=== PATIENT | male | born 1985 | race Caucasian/White ===

== ENCOUNTER 2016-11-30 00:30 | Inpatient (IN) | payer MEDICAID ==
[2016-11-30] MEDS ORDERED: NITROGLYCERIN 0.4 MG BTL SL ONE ×2 (00:38→01:08)
[2016-11-30] MEDS ORDERED: NS 1,000 ML IV ONE (00:39)
[2016-11-30] MEDS ORDERED: ASPIRIN 81 MG CHEWABLE TAB PO ONE (00:39)
[2016-11-30 00:45] LABS: % IMMATURE GRANULYOCYTES 0.9 % (0.0-1.1); ABSOLUTE IMMATURE GRANULOCYTES 0.17 10^3/uL (0.00-0.10); ADD DIFF? NO; ADD MORPH? NO; ADD SCAN? NO; ATYPICAL LYMPHOCYTE FLAG 30 (0-99); FRAGMENT RBC FLAG 0 (0-99); HEMATOCRIT 51.4 % (40.0-51.0); HEMOGLOBIN 17.8 g/dL (13.7-17.5); LEFT SHIFT FLG 0 (0-99); LIPEMIA HEMOLYSIS FLAG 90 (0-99); MEAN CELL HEMOGLOBIN 31.7 pg (27.9-34.1); MEAN CELL HEMOGLOBIN CONCENTR. 34.6 g/dL (32.4-36.7); MEAN CELL VOLUME 91.6 fL (81.5-99.8); MEAN PLATELET VOLUME 10.1 fL (8.7-11.7); PLATELET CLUMPS FLAG 10 (0-99); PLATELET COUNT 337 10^3/uL (150-400); RED BLOOD CELL COUNT 5.61 10^6/uL (4.40-6.38); RED CELL DISTRIBUTION WIDTH 13.1 % (11.5-15.2)
--- NOTE | 2016-11-30 00:56 | EDPHY ---
H & P Stated Complaint: POST ARREST Time Seen by Provider: 11/30/16 00:46 HPI/ROS: Chief complaint: Cardiac arrest HPI: Patient contacted EMS complaining of chest pain earlier this evening. Patient states that he was in an argument with his earlier this evening and went for a walk. During the walked started having some substernal chest pain. On EMS arrival patient was awake and alert complaining of pain. They were able to get a full history on him. He then started complaining of some nausea. Vomited and had a syncopal episode. At that point they noted that he was pulseless and apneic. They began bag-valve ventilations and chest compressions. The place him on the monitor and noted that he was in ventricular fibrillation. He received 1 shock which converted him to sinus tachycardia. Patient on arrival to the emergency department was awake and following commands. Still complaining of 10/10 chest pain. Does state that mother father and have a history of coronary disease. He does smoke. Denies alcohol. Does use marijuana. Denies any other drug use. ROS: 10 point Review of Systems is negative except as noted in the HPI. Past medical history: None Medications: None Allergies: None Social history: Positive for smoking, positive for marijuana, denies cocaine, amphetamines, bath salts, or any other drugs Family history: Father, mother, and aunt have a history of coronary artery disease Physical exam: Gen: Awake, Alert, uncomfortable appearing, awake and oriented x3 HEENT: Eyes: PERRLA, EOMI Mouth: Moist mucosa Neck: Supple, no JVD Chest: Mild bilateral tenderness without crepitus, lungs clear to auscultation Heart: S1, S2 normal, no murmur Abd: Soft, non-tender, no guarding Back: no CVA tenderness, no midline tenderness Ext: no edema, non-tender Skin: no rash Neuro: CN II-XII intact, Sensation grossly intact, Strength 5/5 in bilateral upper and lower extremities - Personal History Current Tetanus/Diphtheria Vaccine: Yes Tetanus Vaccine Date: 11/06/2007 - Medical/Surgical History Hx Asthma: No Hx Chronic Respiratory Disease: No Hx Diabetes: No Hx Cardiac Disease: No Hx Renal Disease: No Hx Cirrhosis: No Hx Alcoholism: No Hx HIV/AIDS: No Hx Splenectomy or Spleen Trauma: No - Social History Smoking Status: Current every day smoker Constitutional: Initial Vital Signs Temperature (C) 36.9 C 11/30/16 00:41 Heart Rate 134 H 11/30/16 00:41 Respiratory Rate 24 H 11/30/16 00:41 Blood Pressure 96/79 L 11/30/16 00:41 O2 Sat (%) 100 11/30/16 00:41 O2 Delivery Mode Non-Rebreather Mask O2 (L/minute) 15 Allergies/Adverse Reactions: No Known Allergies Allergy (Unverified 06/04/12 19:28) Home Medications: Medication Instructions Recorded NK [No Known Home Meds] 11/30/16 Medical Decision Making - Diagnostics EKG Interpretation: EC:32 sinus tachycardia with a rate of 127. There are acute ST elevations in V1 through V4, greater than 7 mm with reciprocal changes in II, III and aVF consistent with acute anterior ST-elevation myocardial infarction Imaging: Chest x-ray: Negative per my interpretation. ED Course/Re-evaluation: 0032 ECG noted. Patient is having an ST-elevation myocardial infarction. Cardiac alert has been called. IV access obtained bilateral [address] Patient blood pressure is 90 systolic with a heart rate of 127. He has been given aspirin 325 orally. [address] Childers, interventional cardiology. He will come directly to the hospital for intervention. Patient's blood pressures improved to 127 systolic. He is given nitroglycerin 1 sublingually. Will also give him morphine. Doctor was not want any other interventions at this time. 0100 patient is still complaining of head and chest pain. He has got nitroglycerin and morphine. Will dose additional morphine. Heart rate now is 101, blood pressure is 101/94. Patient is awake and answering questions. Patient's has been notified and is on her way. 0112 Dr. Whitaker at the patient's bedside. Patient being package to go to molder labels. Critical Care Time: I spent a total of 40 minutes of critical care time in obtaining history, performing a physical exam, bedside monitoring of interventions, collecting and interpreting tests and discussion with consultants but not including time spent performing procedures. - Data Points Laboratory Results: Laboratory Results 11/30/16 00:36 11/30/16 00:36 11/30/16 11/30/16 11/30/16 00:36 00:36 00:33 WBC 18.88 10^3/uL H 10^3/uL (3.80-9.50) RBC 5.61 10^6/uL 10^6/uL (4.40-6.38) Hgb 17.8 g/dL H g/dL (13.7-17.5) POC Hgb 18.4 gm/dL H gm/dL (14.5-17.3) Hct 51.4 % H % (40.0-51.0) POC Hct 54 % H % (42.8-50.6) MCV 91.6 fL fL (81.5-99.8) MCH 31.7 pg pg (27.9-34.1) MCHC 34.6 g/dL g/dL (32.4-36.7) RDW 13.1 % % (11.5-15.2) Plt Count 337 10^3/uL 10^3/uL (150-400) MPV 10.1 fL fL (8.7-11.7) Neut % (Auto) 58.1 % % (39.3-74.2) Lymph % (Auto) 29.9 % % (15.0-45.0) [place] % (Auto) 8.4 % % (4.5-13.0) Eos % (Auto) 2.1 % % (0.6-7.6) Baso % (Auto) 0.6 % % (0.3-1.7) Nucleat RBC Rel Count 0.0 % % (0.0-0.2) Absolute Neuts (auto) 10.98 10^3/uL H 10^3/uL (1.70-6.50) Absolute Lymphs (auto) 5.65 10^3/uL H 10^3/uL (1.00-3.00) Absolute Monos (auto) 1.58 10^3/uL H 10^3/uL (0.30-0.80) Absolute Eos (auto) 0.39 10^3/uL 10^3/uL (0.03-0.40) Absolute Basos (auto) 0.11 10^3/uL H 10^3/uL (0.02-0.10) Absolute Nucleated RBC 0.00 10^3/uL 10^3/uL (0-0.01) Immature Gran % 0.9 % % (0.0-1.1) Immature Gran # 0.17 10^3/uL H 10^3/uL (0.00-0.10) POC Sodium 141 mEq/L mEq/L (134-144) Sodium 144 mEq/L mEq/L (134-144) POC Potassium 2.6 mEq/L L* mEq/L (3.3-5.0) Potassium 3.0 mEq/L L mEq/L (3.5-5.2) POC Chloride 104 mEq/L mEq/L (96-108) Chloride 105 mEq/L mEq/L (97-110) Carbon Dioxide 15 mEq/l L mEq/l (22-31) Anion Gap 24 mEq/L H mEq/L (8-16) POC BUN 9 mg/dL mg/dL (7-23) BUN 9 mg/dL mg/dL (7-23) Creatinine 1.2 mg/dL mg/dL (0.7-1.3) POC Creatinine 1.2 mg/dL mg/dL (0.8-1.5) Estimated GFR > 60 Glucose 177 mg/dL H mg/dL (70-100) POC Glucose 174 mg/dL H mg/dL (70-100) Calcium 9.9 mg/dL mg/dL (8.5-10.4) Troponin I < 0.012 ng/mL ng/mL (0-0.034) Medications Given: Discontinued Medications Aspirin (Aspirin) 324 mg PO EDNOW ONE Stop: 11/30/16 00:40 Last Admin: 11/30/16 01:03 Dose: 324 mg Sodium Chloride (Ns) 1,000 mls @ 0 mls/hr IV ONCE ONE PRN Reason: Wide Open Stop: 11/30/16 00:40 Last Admin: 11/30/16 01:04 Dose: 1,000 mls Morphine Sulfate (Morphine) 4 mg IVP EDNOW ONE Stop: 11/30/16 00:40 Last Admin: 11/30/16 01:04 Dose: 4 mg Morphine Sulfate (Morphine) 4 mg IVP EDNOW ONE Stop: 11/30/16 01:15 Last Admin: 11/30/16 01:15 Dose: 4 mg Nitroglycerin (Nitrostat) 0.4 mg SL EDNOW ONE Stop: 11/30/16 01:09 Last Admin: 11/30/16 01:04 Dose: 0.4 mg Point of Care Test Results: 11/30/16 00:33 POC Sodium 141 POC Potassium 2.6 L* POC Chloride 104 POC BUN 9 POC Creatinine 1.2 POC Glucose 174 H Departure - Departure Disposition: [facility] Inpatient Acute Clinical Impression: STEMI (ST elevation myocardial infarction) Condition: Serious Referrals: Patient,NotPresent [Primary Care Provider] - As per Instructions
[2016-11-30 00:57] LABS: ANION GAP 24 mEq/L (8-16); CALCIUM 9.9 mg/dL (8.5-10.4); CARBON DIOXIDE 15 mEq/l (22-31); CHLORIDE 105 mEq/L (97-110); CREATININE 1.2 mg/dL (0.7-1.3); GLOMERULAR FILTRATION RATE > 60; GLUCOSE 177 mg/dL (70-100); SODIUM 144 mEq/L (134-144)
[2016-11-30] MEDS ORDERED: POTASSIUM Cl (KCl) 10 MEQ/100 ML BAG IV ONE (00:57)
[2016-11-30] MEDS ORDERED: LIDOCAINE 1% 30 ML SDV ONE ×3 (01:01→15:16)
[2016-11-30] MEDS ORDERED: MIDAZOLAM 2 MG/2 ML VIAL ONE ×5 (01:02→16:02)
[2016-11-30] MEDS ORDERED: fentaNYL 100 MCG/2 ML INJ ONE ×5 (01:02→16:02)
--- NOTE | 2016-11-30 01:02 | CPEKG ---
Heart Rate: 127 RR Interval: 472 P-R Interval: 152 QRSD Interval: 78 QT Interval: 304 QTC Interval: 442 P [place]: 80 QRS [place]: -55 T Wave [place]: 32 EKG Severity - ABNORMAL ECG - EKG Impression: SINUS TACHYCARDIA EKG Impression: LEFT ANTERIOR FASCICULAR BLOCK EKG Impression: ST ELEVATION, ANTERIOR INJURY Electronically Signed By: Cl Orta 30-Nov-2016 08:52:01
[2016-11-30 01:10] LABS: TROPONIN I < 0.012 ng/mL (0-0.034)
[2016-11-30] MEDS ORDERED: POTASSIUM Cl (KCl) 100 ML IV ONE (01:25)
[2016-11-30] MEDS ORDERED: METOPROLOL TARTRATE 5 MG/5 ML INJ ONE (01:30)
[2016-11-30] MEDS ORDERED: BIVALIRUDIN 250 MG/5 ML VIAL IV ONE ×3 (01:33→17:13)
[2016-11-30] MEDS ORDERED: IOPAMIDOL (ISOVUE 370) 100 ML BTL IV ONE ×3 (01:45→15:00)
[2016-11-30] MEDS ORDERED: PRASUGREL HCL 10 MG TAB ONE (02:06)
[2016-11-30] MEDS ORDERED: NITROGLYCERIN 0.4 MG BTL SL PRN (02:22)
[2016-11-30] MEDS ORDERED: TEMAZEPAM 15 MG CAP PO PRN (02:22)
[2016-11-30] MEDS ORDERED: PRASUGREL HCL 10 MG TAB PO ONE (02:22)
[2016-11-30] MEDS ORDERED: HYDROCODONE/APAP 5/325 TAB PO PRN (02:22)
[2016-11-30] MEDS ORDERED: ATROPINE SULFATE 1 MG/10 ML SYR IVP PRN (02:22)
[2016-11-30] MEDS ORDERED: ACETAMINOPHEN 325 MG TAB PO PRN (02:22)
[2016-11-30] MEDS ORDERED: NS 1,000 ML IV SCH (02:30)
[2016-11-30] MEDS ORDERED: PROTOCOL POTASSIUM 1 DOSE MISC PRN (02:36)
[2016-11-30] MEDS ORDERED: PROTOCOL MAGNESIUM 1 DOSE IV PRN (02:36)
[2016-11-30] MEDS ORDERED: ONDANSETRON 4 MG/2 ML VIAL ONE (02:37)
[2016-11-30] MEDS: ONDANSETRON 4 MG/2 ML VIAL IVP PRN ×2 (02:40→06:18)
--- NOTE | 2016-11-30 02:42 | PDDXCAT ---
Diagnostic Cath Note - . Date: 11/30/16 Research Group Director: Alvarado Indication: other (Anterior STEMI with [id number] cardiac arrest) - Procedure Access: right groin Procedure: left heart catheterization, coronary angiography, left ventriculogram , other (PCI of the LAD) - Materials Left Heart Cath size: 6F Left Heart Cath materials: standard multipack (JL4, JR4, pigtail) - Findings-Left Heart Catheterization LM: Normal. LAD: 100% proximal. LCX: Minimal irregularities. RCA: Minimal irregularities. EDP: 38 mmHg LVEF: 30% Wall motion: Severe anterior and apical hypokinesis. Complications: None. Estimated blood loss: <50ml Closure method: Angioseal Assessment: 1) Acute anterior STEMI. 2) CAD as described above. 3) Successful PCI of the LAD using a single drug coated stent. 4) Ischemic cardiomyopathy. Plan: Aggressive secondary prevention Intervention: Based on the patient's clinical presentation and diagnostic angiograms, the decision was made to perform percutaneous coronary intervention of the left anterior descending. The patient received intravenous Angiomax. A 6 Lao CLS 3.5 guide catheter was advanced to the left main. A [employer] guidewire was advanced to the apical portion of the left anterior descending. Predilatation of the total occlusion in the proximal LAD was performed using a 2.5 x 12 mm Emerge balloon. Angiography at this point demonstrated roman catholic of LEXII-III flow and revealed the presence of a high grade stenosis of the proximal LAD with a segment of disease in the mid-LAD up to 60-70%. Attempts were then made to track a 3.0 x 38 mm Synergy stent into position. However, there was significant resistance in the proximal LAD. Additional predilatation inflations were performed using the original balloon. The Synergy stent was then advanced and positioned spanning from the proximal LAD into the mid LAD. The stent was deployed at 14 atmospheres. Final angiograms demonstrated 0% residual stenosis and LEXII-III flow. There was no compromise of the principle diagonal branch. Patient Problems: Problems Problem Status Onset STEMI (ST elevation myocardial infarction) Acute Abscess of axilla Active Fever Active Obesity Active Renal failure syndrome Active
--- NOTE | 2016-11-30 02:48 | CPEKG ---
Heart Rate: 90 RR Interval: 667 P-R Interval: 136 QRSD Interval: 82 QT Interval: 356 QTC Interval: 436 P [place]: 65 QRS [place]: 66 T Wave [place]: -9 EKG Severity - ABNORMAL ECG - EKG Impression: SINUS RHYTHM EKG Impression: ANTERIOR INFARCT, ACUTE EKG Impression: LATERAL LEADS ARE ALSO INVOLVED Electronically Signed By: Cl Orta 30-Nov-2016 08:40:19
[2016-11-30] MEDS: LORazepam 2 MG/ML INJ IVP PRN ×3 (02:55→20:30)
[2016-11-30] MEDS ORDERED: NITROGLYCERIN/D5W 50 MG/250 ML BOTTLE IV ONE (03:06)
--- NOTE | 2016-11-30 03:22 | GHP ---
[f rep st] HISTORY AND PHYSICAL DATE OF ADMISSION: 11/30/2016 REASON FOR ADMISSION: Acute anterior ST-segment elevation myocardial infarction. HISTORY: The patient is a 31-year-old male with no prior cardiac history. He is a somewhat poor hi storian in the emergency room due to pain and anxiety. He reports that he has been having chest dis comfort off and on for the past couple of weeks. Tonight it became severe. Paramedics were summone d and shortly after their arrival, the patient was on the diagnostic cardiac sonographer, he had a witnessed ventri cular fibrillation arrest. He received CPR and a single defibrillation, which restored sinus rhythm . The patient arrives hemodynamically stable and conscious to the emergency room. His 12-lead ECG demonstrated anterior ST-segment elevation consistent with acute myocardial injury. A cardiac alert was called. PAST MEDICAL HISTORY: He has a history of recurrent abscesses on his arms and legs. He reports a p rior spontaneous pneumothorax. He does not have hypertension or diabetes. He does not know his lip id status. MEDICATIONS: Tylenol p.r.n. ALLERGIES: No known drug allergies. SOCIAL HISTORY: He is . He has 2 children and 2 stepchildren. He is currently unemployed. He smokes 1/2 to 1 pack of cigarettes per day. Alcohol consumption is not excessive. He does not use any illicit substances. REVIEW OF SYSTEMS: Unobtainable due to the patient's acute medical condition. PHYSICAL EXAMINATION: VITAL SIGNS: Heart rate 105 beats per minute with sinus tachycardia on the m onitor. Blood pressure 117/80. GENERAL: This is an anxious young male, who is alert and responsiv e. HEAD AND NECK: No scleral icterus. Mucous membranes moist. Carotid pulses 2+ without bruits. There is no JVD. CHEST: Lung pérez clear anteriorly. CARDIAC: Tachycardic, regular rhythm with a normal S1, S2. No gallop appreciated. ABDOMEN: Soft, nontender, nondistended without masses. Normal bowel sounds. EXTREMITIES: 2+ pulses and no peripheral edema. LABORATORY STUDIES: Pending. ECG: Demonstrates sinus tachycardia with 2-[address]-segment elevation, and inferolateral reciprocal changes. IMPRESSION: This is a 31-year-old male, who presents with an acute anterior ST-segment elevation my ocardial infarction. His presentation was complicated by a witnessed cardiac arrest, which was brie f and quickly resuscitated back to sinus rhythm. PLAN: Preparations are underway to take the patient urgently to the cardiac labeling associate for angiograph y and percutaneous coronary intervention of the infarct-related artery. Further diagnostic and ther apeutic decisions await the outcome of that procedure. /[id number]/MODL
[2016-11-30 03:42] LABS: ANION GAP 12 mEq/L (8-16); CALCIUM 8.1 mg/dL (8.5-10.4); CARBON DIOXIDE 22 mEq/l (22-31); CHLORIDE 106 mEq/L (97-110); GLOMERULAR FILTRATION RATE > 60; GLUCOSE 131 mg/dL (70-100); MAGNESIUM 1.8 mg/dL (1.6-2.3); POTASSIUM 3.4 mEq/L (3.5-5.2); SODIUM 140 mEq/L (134-144)
[2016-11-30] MEDS ORDERED: MAGNESIUM SULF 1 GM/DEXTROSE 100 ML IV ONE ×2 (03:50→21:48)
[2016-11-30] MEDS: POTASSIUM Cl (KCl) 100 ML IV SCH ×3 (04:12→04:14)
[2016-11-30] MEDS ORDERED: *ANGINA PROTOCOL*NITROGLYCERIN/DEXTR IV SCH (04:30)
[2016-11-30 05:48] LABS: ADD DIFF? YES; ADD MORPH? NO; ADD SCAN? NO; ATYPICAL LYMPHOCYTE FLAG 0 (0-99); FRAGMENT RBC FLAG 0 (0-99); HEMOGLOBIN 15.3 g/dL (13.7-17.5); LEFT SHIFT FLG 30 (0-99); LIPEMIA HEMOLYSIS FLAG 90 (0-99); MEAN CELL HEMOGLOBIN 31.8 pg (27.9-34.1); MEAN CELL HEMOGLOBIN CONCENTR. 34.8 g/dL (32.4-36.7); MEAN CELL VOLUME 91.5 fL (81.5-99.8); MEAN PLATELET VOLUME 10.2 fL (8.7-11.7); PLATELET CLUMPS FLAG 10 (0-99); PLATELET COUNT 315 10^3/uL (150-400); RED BLOOD CELL COUNT 4.81 10^6/uL (4.40-6.38); RED CELL DISTRIBUTION WIDTH 13.2 % (11.5-15.2)
[2016-11-30 06:08] LABS: ALBUMIN 3.7 g/dL (3.5-5.0); ANION GAP 8 mEq/L (8-16); ASPARTATE AMINOTRANSFERASE 147 IU/L (17-59); BILIRUBIN,TOTAL 1.1 mg/dL (0.1-1.4); CALCIUM 8.4 mg/dL (8.5-10.4); CARBON DIOXIDE 23 mEq/l (22-31); CHLORIDE 108 mEq/L (97-110); CHOLESTEROL 154 mg/dL (140-200); CREATININE 0.9 mg/dL (0.7-1.3); GLOMERULAR FILTRATION RATE > 60; GLUCOSE 154 mg/dL (70-100); HIGH DENSITY LIPOPROTEIN 27 mg/dL (40-65); LACTATE DEHYDROGENASE 875 IU/L (313-618); LDL/HDL RATIO 3.81 RATIO (1.00-3.64); LOW DENSITY LIPOPROTEIN 103 mg/dL (70-100); MAGNESIUM 2.4 mg/dL (1.6-2.3); NON-HIGH DENSITY LIPOPROTEIN 127 mg/dL (90-129); POTASSIUM 4.4 mEq/L (3.5-5.2); SODIUM 139 mEq/L (134-144); TRIGLYCERIDE 123 mg/dL (40-150); VERY LOW DENSITY LIPOPROTEINS 24 mg/dL (8-25)
[2016-11-30 06:50] LABS: PLATELET ESTIMATE ADEQUATE (ADEQ)
[2016-11-30] MEDS ORDERED: CARVEDILOL 3.125 MG TAB PO SCH (08:00)
--- NOTE | 2016-11-30 08:45 | CPEKG ---
Heart Rate: 90 RR Interval: 667 P-R Interval: 132 QRSD Interval: 72 QT Interval: 344 QTC Interval: 421 P [place]: 62 QRS [place]: 78 T Wave [place]: 63 EKG Severity - ABNORMAL ECG - EKG Impression: SINUS RHYTHM EKG Impression: LATERAL INFARCT, AGE INDETERMINATE EKG Impression: ANTERIOR INFARCT, ACUTE Electronically Signed By: Cl Orta 30-Nov-2016 08:52:07
[2016-11-30] MEDS ORDERED: ASPIRIN EC 325 MG TAB PO SCH (09:00)
[2016-11-30] MEDS ORDERED: LISINOPRIL 2.5 MG TAB PO SCH (09:00)
[2016-11-30] MEDS ORDERED: ATORVASTATIN CALCIUM 40 MG TAB PO SCH (09:00)
[2016-11-30 09:06] LABS: CK-MB INTERPRETATION POSITIVE (NEGATIVE)
--- NOTE | 2016-11-30 13:03 | GCON ---
[f rep st] CONSULTATION CLUB MANAGER CONSULTATION REASON FOR ADMISSION: Chest pain, coronary artery disease, acute IL. HISTORY OF PRESENT ILLNESS: The patient is a 31-year-old white male with past medical history of a prior spontaneous pneumothorax. He presented to the emergency room after complaining for chest pain on and off for several weeks. This had worsened in severity. EMS was notified. At the time, he w as found to be suffering a ventricular fibrillation arrest. He received CPR and a single defibrilla tion and was brought back to sinus rhythm. He was brought to the emergency room and subsequently we nt to the cardiac catheterization lab. At that time, he was found to have 100% proximal LAD lesion, and he underwent successful stenting. He was also found to have some evidence of ischemic cardiomy opathy. He was subsequently admitted to the intensive care unit. Currently, patient is resting com fortably. He complains of some chest pain when awake, has no fever or night sweats. No cough or pr oductive sputum. No nausea, vomiting, or diarrhea. PAST MEDICAL HISTORY: Again, significant for history of a spontaneous pneumothorax. ALLERGIES: None known allergies to medications. SOCIAL HISTORY: He is . Has 2 children. He is unemployed. He smokes a pack of cigarettes a day. Denies any use of any illicit substances. PHYSICAL EXAM: VITAL SIGNS: Blood pressure is 117/77, pulse 94, respirations 20. He is afebrile. Oxygen saturation 94% on 2 L. GENERAL: He is a well-developed, well-nourished 31-year-old white m dilia who is resting comfortably, in no acute distress. HEENT: Eyes: ROSS. EOMI. Throat shows no erythema or tonsillar hypertrophy. NECK: Supple. No cervical adenopathy. HEART: Regular rate an d rhythm without murmurs, rubs, or gallops. LUNGS: Clear to auscultation. No wheeze or rhonchi. ABDOMEN: Soft, nontender. Bowel sounds are present in all 4 quadrants. EXTREMITIES: No clubbing, cyanosis, or edema. LABORATORIES: White count is 25.8, hemoglobin of 15, hematocrit 44, platelet count is 315. Sodium is 140, potassium 3.4, chloride 106, CO2 is 22, BUN 9, creatinine is 1, glucose is 131, CK is positi ve. Troponins are positive. Urine drug screen is none. Negative for opiates, benzodiazepines, rachele liam and marijuana. IMPRESSION: 1. Acute myocardial infarction. 2. Status post ventricular fibrillation arrest. 3. Coronary artery disease, status post stenting of the LAD. 4. Polysubstance abuse. RECOMMENDATIONS: 1. Adequate pain control. 2. Adequate blood pressure control. 3. Deep vein thrombosis and pulmonary embolism prophylaxis. 4. Stress ulcer prophylaxis. 5. Early ambulation. /[id number]/MODL
--- NOTE | 2016-11-30 14:07 | ECHO ---
[id number] + + [address] : : [place] [address] : : [phone] + + Adult Echocardiographic Report + + :Name: ANGELA SCHROEDER SStudy Date: 11/30/2016 08:03 AM : : Hospital Admission Number: [id number] Loc ation: 256: :: 1985 Gender: Male Height: 67 in : :Age: 31 yrs Race: WH,PTD Weight: 157 lb : :Reason For Study: Eval LV Fx : : BSA: 1.8 me ters2 : :History: Acute Anterior AL : + + MMode/2D Measurements \T\ Calculations IVSd: 0.90 cm LVIDd: 3.9 cm FS: 18.4 % Ao root diam: LVPWd: 0.98 cm LVIDs: 3.2 cm EDV(Teich): 3.1 cm 67.7 ml ACS: 1.9 cm ESV(Teich): 41.6 ml EF(Teich): 38.6 % LVLd ap4: 7.8 cm SV(MOD-sp4): EDV(MOD-sp4): 20.0 ml 63.0 ml LVLs ap4: 7.1 cm ESV(MOD-sp4): 43.0 ml EF(MOD-sp4): 31.7 % Normal Measurement Values: + + :LVIDd (3.5-5.7cm) IVSd (0.6-1.1cm) LVPWd (0.6-1.1cm) Aortic Root (2.0-3.7cm)Left Atrium (1.5-4.0cm): :LV Vol(d) (76-115ml) LV Vol(s) (29-48ml) Ejec Fraction (50-65%)PV Bimal (0.6- 1.2m/s) TV Bimal (0.4-1.0m/s) : :MV E Bimal (0.8-1.0m/s)MV A Bimal (0.3-1.0m/s)LVOT Bimal (0.7-1.2m/s) Asc Ao Bimal ( 0.9-1.8m/s) : + + Doppler Measurements \T\ Calculations MV E max bimal: Ao V2 max: LV V1 max: PA V2 max: 88.8 cm/sec 86.9 cm/sec 82.4 cm/sec 106.0 cm/sec MV A max bimal: Ao max PG: LV V1 max PG: PA max P.5 mmHg 79.0 cm/sec 3.0 mmHg 2.7 mmHg MV E/A: 1.1 TR max bimal: 269.0 cm/sec TR max P.9 mmHg RAP systole: 5.0 mmHg RVSP(TR): 33.9 mmHg Left Ventricle The left ventricle is normal in size. There is normal left ventricular wall thickness. Ejection Fraction = 35%. There is Doppler evidence for diastolic dysfunction. There is basilar to mid anteroseptal hypokinesis. There is apical hypokinesis. Right Ventricle The right ventricle is normal in size and function. Atria The left atrial size is normal. Right atrial size is normal. Mitral Valve The mitral valve is normal in structure and function. There is no evidence of mitral valve prolapse. There is no mitral valve stenosis. There is no mitral regurgitation noted. Tricuspid Valve The tricuspid valve is normal in structure and function. There is trace tricuspid regurgitation. Right ventricular systolic pressure is normal. Aortic Valve The aortic valve is normal in structure and function. There is no aortic stenosis. There is no aortic insufficiency. Pulmonic Valve The pulmonic valve is normal in structure and function. There is no pulmonic valvular regurgitation. Great Vessels The aortic root is normal size. Pericardium/Pleural There is no pericardial effusion. Conclusion A complete two-dimensional transthoracic echocardiogram was performed (2D, M-mode, Doppler and color flow Doppler). There is Doppler evidence for diastolic dysfunction. There is basilar to mid anteroseptal hypokinesis. There is apical hypokinesis. The right ventricle is normal in size and function. The left atrial size is normal. Right atrial size is normal. The mitral valve is normal in structure and function. The tricuspid valve is normal in structure and function. There is trace tricuspid regurgitation. Right ventricular systolic pressure is normal. The aortic valve is normal in structure and function. The pulmonic valve is normal in structure and function. The aortic root is normal size. There is no pericardial effusion. Ejection Fraction = 35%. Final Reading Physician: Bre Chery signed on 11/30/2016 02:02 PM Ordering Physician: Ant Childers Performed By: Tang Mills RDCS
--- NOTE | 2016-11-30 16:14 | CPEKG ---
Heart Rate: 100 RR Interval: 600 P-R Interval: 140 QRSD Interval: 72 QT Interval: 320 QTC Interval: 413 P [place]: 62 QRS [place]: 92 T Wave [place]: 34 EKG Severity - ABNORMAL ECG - EKG Impression: SINUS TACHYCARDIA EKG Impression: VENTRICULAR PREMATURE COMPLEX EKG Impression: EXTENSIVE ANTERIOR INFARCT, ACUTE Electronically Signed By: Baljeet Wolf 30-Nov-2016 16:22:06
[2016-11-30] MEDS ORDERED: EPTIFIBATIDE 200 MG/100 ML BOTTLE IV ONE (16:17)
--- NOTE | 2016-11-30 16:42 | ECHO ---
[id number] + + [address] : : [place] [address] : : [phone] + + Adult Echocardiographic Report + + :Name: ANGELA SCHROEDER SStudy Date: 11/30/2016 02:31 PM : : Hospital Admission Number: [id number] Loc ation: 256: :: 1985 Gender: Male : :Age: 31 yrs Race: WH,PTD : :Reason For Study: Chest Pain : + + Left Ventricle EF estimate is 30%. LV basal/mid septal wall and entire apical region is akinetic. Conclusion Limited 2-D echo. Compared to the study of earlier today, the wall motion abnormalities remains unchanged.. LV basal/mid septal wall and entire apical region is akinetic. EF estimate is 30%. Final Reading Physician: Bre Chery signed on 11/30/2016 04:40 PM Ordering Physician: Ant Childers Performed By: Padmini Bridges RDCS
[2016-11-30] MEDS ORDERED: IOPAMIDOL (ISOVUE-300) 150 ML BTL IV ONE (16:57)
[2016-11-30] MEDS ORDERED: FUROSEMIDE 20 MG/2 ML VIAL ONE (17:18)
[2016-11-30] MEDS ORDERED: SUCCINYLCHOLINE CHLORIDE 200 MG/10 ML VIAL ONE (17:34)
[2016-11-30] MEDS ORDERED: ROCURONIUM 50 MG/5 ML VIAL ONE ×2 (17:36→18:17)
[2016-11-30] MEDS ORDERED: DOPamine/DEXTROSE/250 ML BAG IV ONE (17:41)
[2016-11-30] MEDS ORDERED: fentanYL/NACL/100 ML BAG IV ONE (18:41)
[2016-11-30] MEDS ORDERED: PROPOFOL/EMULSION 1,000 MG/100 ML BOTTLE IV ONE (18:50)
--- NOTE | 2016-11-30 18:51 | CPEKG ---
Heart Rate: 153 RR Interval: 392 P-R Interval: 128 QRSD Interval: 70 QT Interval: 264 QTC Interval: 422 P [place]: 72 QRS [place]: 107 T Wave [place]: 44 EKG Severity - ABNORMAL ECG - EKG Impression: SINUS TACHYCARDIA EKG Impression: EXTENSIVE ANTERIOR INFARCT, ACUTE Electronically Signed By: Baljeet Wolf 30-Nov-2016 19:53:32
[2016-11-30] MEDS: PROPOFOL/EMULSION 100 ML IV SCH ×2 (19:00→22:49)
[2016-11-30] MEDS: NOREPINEPHRINE BITARTRATE 4 MG in D5W 500 ML IV SCH ×2 (19:00→21:44)
[2016-11-30] MEDS: fentaNYL/NACL 100 ML IV SCH ×2 (19:00→22:50)
[2016-11-30] MEDS ORDERED: HEPARIN 10,000 UNIT/10 ML MDV IVP PRN (19:34)
[2016-11-30] MEDS ORDERED: HEPARIN 10,000 UNIT/10 ML MDV IVP ONE (19:34)
--- NOTE | 2016-11-30 20:09 | CPIP ---
[f rep st] INVASIVE CARDIAC PROCEDURE DATE OF PROCEDURE: 11/30/2016 PROCEDURE: 1. Coronary angiography. 2. Left ventricular end-diastolic pressure. 3. Stenting of left anterior descending coronary artery with Synergy drug-eluting stent. 4. Intravascular ultrasound of the left anterior descending coronary artery. 5. Thrombectomy of the left anterior descending coronary artery. 6. Placement of intraaortic balloon pump. INDICATION: Patient is a 31-year-old gentleman who presented with an acute anterior ST-segment elev ation myocardial infarction. He was treated with percutaneous coronary intervention of his left ant erior descending coronary artery. Initially postprocedure patient did well; however, he developed r ecurrent chest pain that was 8/10 in severity. EKG demonstrated anterior ST-segment elevation consi stent with anterior IA; however, it was unclear if these were evolutionary changes from his previous IA versus active ischemia. The patient was taken to the cardiac catheterization laboratory for furt her risk stratification. DESCRIPTION OF PROCEDURE: Access: Patient was prepped and draped in sterile fashion. 1% lidocaine was used to anesthetize the left inguinal region. A 6-[place] introducer sheath was placed selectiv mary into the left common femoral artery via modified Seldinger technique. Later a 5-[place] introduc er sheath was placed selectively into the right common femoral artery via modified Seldinger techniq ue for hemodynamic monitoring. In addition, a 6-[place] introducer sheath was placed in the right co mmon femoral vein for intravenous access. For coronary angiography, a 6-[place] JL4 was advanced to left main coronary artery and images obtained. The left main coronary artery bifurcated into an LAD and circumflex coronary arteries. The left main coronary artery appeared normal. The left anterio r descending coronary artery was 100% occluded at the site of the previously placed stent. The circ umflex coronary artery appeared normal. The 1st OM artery had mild diffuse disease throughout. The re was no stenosis greater than 20%. Percutaneous coronary intervention of the left anterior descending coronary artery: A 6-[place]izen [place] EBU 3.5 catheter was advanced to left main coronary artery and images obtained. Angiography confirmed t he presence of 100% occlusion at the site of previously placed stent. Several attempts were made at passing a loose wire into the distal vessel; these were unsuccessful. Ultimately a Typewriter Ribbon Winder 50 wire w as placed in the distal vessel and position verified by angiography. A 1.25 x 10 Sprinter was then advanced over the wire via daughter technique. Followup angiography demonstrated LEXII 0 flow. Sever al balloon inflations were made with the 125 x 10 Sprinter. LEXII flow improved from 0 to 1. A Pront o catheter was then advanced and thrombectomy performed on 2 separate occasions. Post thrombectomy, significant thrombus burden could be seen at the site of the previously placed stent. There was TI IA 2.5 flow in the distal vessel. A 2.5 x 20 Emerge balloon was then used to pre-dilate the lesions . Followup angiography demonstrated LEXII 3 flow. There was significant residual thrombus burden in the distal portion of the stent and there was concern for potential edge dissection. A 2.75 x 24 Sy nergy drug-eluting stent was telescoped into the previously placed stent and extended distally and w as deployed. Followup angiography demonstrated LEXII 3 flow. No residual stenosis. Intravascular u ltrasound probe was advanced and images obtained. Intravascular ultrasound demonstrated incomplete stent expansion, as well as heavy thrombus burden. The distal stents were post dilated with a 3.0 x 20 noncompliant balloon. The proximal stent was post dilated to 3.5 x 16 noncompliant balloon. Fol lowup angiography demonstrated LEXII 3 flow; however, there appeared to be a thrombus versus tissue p laque in the ostial portion of the previously placed stent. Intravascular ultrasound probe was adva nced and images obtained. Intravascular ultrasound demonstrated evidence of thrombus versus tissue extending through the stent struts into the lumen. A 3.5 x 16 Synergy drug-eluting stent was then p laced in the proximal portion of the left anterior descending coronary artery and deployed. Followu p angiography demonstrated no residual stenosis and LEXII 3 flow. Left ventricular end-diastolic pressure: A 6-[place] pigtail catheter was advanced in the left ventr icle and left ventricular end-diastolic pressure was obtained. The left ventricular end-diastolic pr essure was elevated at 40 mmHg. The patient's SaO2 was approximately 90% and would dip into the 80s with sedation. It was decided to place an intraaortic balloon pump for hemodynamic support. Intra aortic balloon pump was placed via the left femoral access site. COMPLICATIONS: None. CONCLUSIONS: 1. Single-vessel coronary artery disease representing subacute stent thrombosis of the left anterio r descending coronary artery. 2. Status post successful percutaneous coronary intervention of the left anterior descending liu ry artery using a Synergy drug-eluting stents. 3. Status post placement of intraaortic balloon pump. /[id number]/MODL
[2016-11-30 20:28] LABS: BASE EXCESS -6.5 mEq/L (-2.5-2.5); BICARBONATE 20 mEq/L (22-26); IONIZED CALCIUM 1.15 MMOL/L (1.12-1.30); MEASURED OXYGEN SATURATION 97 % (92-95); PCO2 43 mmHg (34-38); PO2 100 mmHg (65-75); TCO2 21 mEq/L (23-27)
[2016-11-30 20:29] LABS: % IMMATURE GRANULYOCYTES 0.8 % (0.0-1.1); ABSOLUTE IMMATURE GRANULOCYTES 0.22 10^3/uL (0.00-0.10); ADD DIFF? NO; ADD MORPH? NO; ADD SCAN? NO; ATYPICAL LYMPHOCYTE FLAG 10 (0-99); FRAGMENT RBC FLAG 0 (0-99); HEMATOCRIT 46.3 % (40.0-51.0); LEFT SHIFT FLG 10 (0-99); LIPEMIA HEMOLYSIS FLAG 90 (0-99); MEAN CELL HEMOGLOBIN 31.6 pg (27.9-34.1); MEAN CELL HEMOGLOBIN CONCENTR. 34.6 g/dL (32.4-36.7); MEAN CELL VOLUME 91.3 fL (81.5-99.8); MEAN PLATELET VOLUME 10.3 fL (8.7-11.7); PLATELET CLUMPS FLAG 10 (0-99); PLATELET COUNT 348 10^3/uL (150-400); RED BLOOD CELL COUNT 5.07 10^6/uL (4.40-6.38); RED CELL DISTRIBUTION WIDTH 13.5 % (11.5-15.2)
[2016-11-30 20:31] LABS: SIMV YES
[2016-11-30 20:32] LABS: O2 CONCENTRATIION 100 % (0-100); P/F RATIO 100 RATIO; PATIENT RATE 16; PRESSURE SUPPORT 10
[2016-11-30] MEDS: HEPARIN/DEXTROSE 500 ML IV SCH (20:48)
[2016-11-30 20:49] LABS: INR 1.91 (0.83-1.16)
[2016-11-30 20:51] LABS: APTT 71.3 SEC (23.0-38.0)
[2016-11-30 20:56] LABS: ALBUMIN 3.3 g/dL (3.5-5.0); ANION GAP 6 mEq/L (8-16); CARBON DIOXIDE 22 mEq/l (22-31); CHLORIDE 107 mEq/L (97-110); CREATININE 0.9 mg/dL (0.7-1.3); GLOMERULAR FILTRATION RATE > 60; GLUCOSE 154 mg/dL (70-100); MAGNESIUM 1.7 mg/dL (1.6-2.3); SODIUM 135 mEq/L (134-144)
[2016-11-30] MEDS ORDERED: PROTOCOL CALCIUM 1 DOSE IV PRN (21:04)
[2016-11-30] MEDS ORDERED: PROTOCOL K PHOSPHATE 1 DOSE IV PRN (21:04)
--- NOTE | 2016-11-30 21:04 | SOAPPROG ---
FATUMA Progress Note Assessment/Plan: 1. AMI - Pt presented with an acute anterior STEMI in the setting of cocaine use. He was treated with PCI of his LAD. CPK 1482. LVEF = 35%. Pt has developed recurrent chest pain post PCI. EKG demonstrates Anterior STEMI ? evolving vs recurrent ischemia. Discussed risks and benefits of cardiac catheterization with patient and family to further evaluate his condition. Will arrange to have this performed. --> Cardiac catheterization --> Continue asa, effient, and lipitor --> No BB given cocaine use 2. CM - Pt has an ICM with an EF of 35%. --> Add coreg and lisinopril as appropriate --> Consider longterm anticoagulation given anterior OR 3. Hyperlipidemia - Pts LDL is 103. His goal is less than 70. --> Lipitor 40 mg daily 4. Polysubstance use 5. V- fib arrest - Pt with V-fib arrest in setting of STEMI. He is s/p revascularization. --> Continue to follow up telemetry Subjective: Pt reports recurrent chest pain 8 to 9 out of ten No orthopnea or PND limited ambulation Objective: Vital Signs Temp Pulse Resp BP Pulse Ox 36.8 C 156 H 12 118/83 H 94 11/30/16 12:00 11/30/16 18:29 11/30/16 18:29 11/30/16 15:00 11/30/16 18:29 Laboratory Results 11/30/16 20:05 11/29/16 11/30/16 12/01/16 05:59 05:59 05:59 Intake Total 2855 50 Output Total 0 1350 Balance 2855 -1300 PT 22.0 SEC (12.0-15.0) H 11/30/16 20:05 INR 1.91 (0.83-1.16) H 11/30/16 20:05 Physical Exam - Physical Exam General Appearance: moderate distress Respiratory: crackles Cardiac/Chest: tachycardia Abdomen: non-tender, soft Extremities: No pedal edema ICD10 Worksheet Patient Problems: Problems Problem Status Onset STEMI (ST elevation myocardial infarction) Acute Abscess of axilla Active Fever Active Obesity Active Renal failure syndrome Active
[2016-11-30 21:46] LABS: CK-MB INTERPRETATION POSITIVE (NEGATIVE)
[2016-11-30] MEDS ORDERED: NEOSTIGMINE METHYLSULFATE 10 MG/10 ML MDV ONE ×2 (22:00→22:02)
[2016-11-30] MEDS ORDERED: PROPOFOL 200 MG/20 ML VIAL ONE (22:02)
[2016-12-01 00:41] LABS: CALCULATED OXYGEN SATURATION 95 % (92-95)
[2016-12-01] MEDS: NOREPINEPHRINE BITARTRATE 4 MG in D5W 500 ML IV SCH ×2 (01:47→06:26)
[2016-12-01 01:49] LABS: CK-MB INTERPRETATION POSITIVE (NEGATIVE)
[2016-12-01] MEDS: LORazepam 2 MG/ML INJ IVP PRN ×2 (02:13→04:38)
[2016-12-01 03:09] LABS: BASE EXCESS -1.3 mEq/L (-2.5-2.5); BICARBONATE 22 mEq/L (22-26); MEASURED OXYGEN SATURATION 99 % (92-95); PCO2 36 mmHg (34-38); PO2 118 mmHg (65-75); TCO2 24 mEq/L (23-27)
[2016-12-01 03:10] LABS: O2 CONCENTRATIION 50 % (0-100); P/F RATIO 236 RATIO; SIMV YES
[2016-12-01 03:11] LABS: END TIDAL CO2 32; PATIENT RATE 18; PRESSURE SUPPORT 10
[2016-12-01] MEDS: PROPOFOL/EMULSION 100 ML IV SCH ×4 (04:30→20:09)
[2016-12-01] MEDS: fentaNYL/NACL 100 ML IV SCH (04:30)
[2016-12-01 06:00] LABS: BASE EXCESS -0.7 mEq/L (-2.5-2.5); BICARBONATE 23 mEq/L (22-26); IONIZED CALCIUM 1.09 MMOL/L (1.12-1.30); MEASURED OXYGEN SATURATION 97 % (92-95); PCO2 35 mmHg (34-38); PO2 89 mmHg (65-75); TCO2 24 mEq/L (23-27)
[2016-12-01 06:01] LABS: END TIDAL CO2 33; O2 CONCENTRATIION 40 % (0-100); P/F RATIO 223 RATIO; PATIENT RATE 18; SIMV YES
[2016-12-01 06:02] LABS: PRESSURE SUPPORT 10
[2016-12-01 06:03] LABS: % IMMATURE GRANULYOCYTES 0.6 % (0.0-1.1); ABSOLUTE IMMATURE GRANULOCYTES 0.12 10^3/uL (0.00-0.10); ADD DIFF? NO; ADD MORPH? NO; ADD SCAN? NO; ATYPICAL LYMPHOCYTE FLAG 10 (0-99); FRAGMENT RBC FLAG 0 (0-99); HEMOGLOBIN 13.5 g/dL (13.7-17.5); LEFT SHIFT FLG 0 (0-99); LIPEMIA HEMOLYSIS FLAG 90 (0-99); MEAN CELL HEMOGLOBIN 31.8 pg (27.9-34.1); MEAN CELL HEMOGLOBIN CONCENTR. 34.6 g/dL (32.4-36.7); MEAN PLATELET VOLUME 10.4 fL (8.7-11.7); PLATELET CLUMPS FLAG 10 (0-99); PLATELET COUNT 264 10^3/uL (150-400); RED BLOOD CELL COUNT 4.24 10^6/uL (4.40-6.38); RED CELL DISTRIBUTION WIDTH 13.2 % (11.5-15.2)
[2016-12-01 06:53] LABS: ANION GAP 3 mEq/L (8-16); CALCIUM 7.3 mg/dL (8.5-10.4); CARBON DIOXIDE 25 mEq/l (22-31); CHLORIDE 109 mEq/L (97-110); CREATININE 0.8 mg/dL (0.7-1.3); GLOMERULAR FILTRATION RATE > 60; GLUCOSE 144 mg/dL (70-100); MAGNESIUM 1.9 mg/dL (1.6-2.3); POTASSIUM 3.5 mEq/L (3.5-5.2); SODIUM 137 mEq/L (134-144)
[2016-12-01] MEDS: CHLORHEXIDINE GLUCONATE 15 ML UDL PO SCH ×2 (08:00→20:09)
[2016-12-01] MEDS ORDERED: FUROSEMIDE 40 MG/4 ML VIAL IVP ONE (08:12)
[2016-12-01] MEDS ORDERED: FUROSEMIDE 20 MG/2 ML VIAL IVP ONE (08:45)
--- NOTE | 2016-12-01 08:57 | CPEKG ---
Heart Rate: 124 RR Interval: 484 P-R Interval: 124 QRSD Interval: 70 QT Interval: 304 QTC Interval: 437 P Brilliant: 63 QRS Brilliant: 106 T Wave Brilliant: 58 EKG Severity - ABNORMAL ECG - EKG Impression: SINUS TACHYCARDIA EKG Impression: EXTENSIVE ANTERIOR INFARCT, ACUTE Electronically Signed By: Baljeet Wolf 01-Dec-2016 09:01:44
[2016-12-01] MEDS ORDERED: POTASSIUM Cl (KCl) 10 MEQ/50 ML BAG IV ONE (09:04)
[2016-12-01] MEDS ORDERED: POTASSIUM Cl (KCl) 20 MEQ/50 ML BAG IV ONE (09:04)
--- NOTE | 2016-12-01 09:05 | PDINTPN ---
Pot Builder Progress Note Assessment/Plan: Assessment: * AMI * CAD-went to general production laborer yesterday for more stents * Resp failure-stable on vent with minimal FIO2 req -hold extubation for now * CHF * Agitation/Anxiety * IABP * Sedation-will keep well sedated for now * Substance abuse * VTE proph * Stress ulcer proph Case discussed with family, RT and nurse 35 min of critical care time spent with patient. Subjective: sedated Objective: Vital Signs Temp Pulse Resp BP Pulse Ox 36.9 C 130 H 24 H 126/75 H 98 12/01/16 08:00 12/01/16 08:00 12/01/16 08:00 12/01/16 08:00 12/01/16 08:00 Laboratory Results 12/01/16 05:50 12/01/16 05:50 11/30/16 12/01/16 12/02/16 05:59 05:59 05:59 Intake Total 2855 4198 Output Total 0 3970 Balance 2855 228 PT 22.0 SEC (12.0-15.0) H 11/30/16 20:05 INR 1.91 (0.83-1.16) H 11/30/16 20:05 Laboratory Results 12/01/16 05:50 12/01/16 05:50 12/01/16 05:50 Patient Temperature 36.9 DEGREES DEGREES pCO2 35 mmHg mmHg (34 - 38) pO2 89 mmHg H mmHg (65 - 75) Total CO2 24 mEq/L mEq/L (23 - 27) ABG pH 7.43 (7.35 - 7.45) ABG PO2/FiO2 Ratio 223 RATIO RATIO ABG O2 Saturation 97 % H % (92 - 95) ABG Base Excess -0.7 mEq/L mEq/L (-2.5 - 2.5) O2 Concentration % 40 % % Actual Respiration Rate 18 Set Respiration Rate 18 SIMV YES Tidal Volume 550 End Tidal CO2 33 PEEP 5 Pressure Support 10 - Time Spent With Patient Time Spent With Patient: 35 Physical Exam - Physical Exam General Appearance: other (sedated), No alert EENT: PERRL/EOMI, ET tube Neck: non-tender, full range of motion, supple, normal inspection Respiratory: chest non-tender, lungs clear, normal breath sounds Cardiac/Chest: normal peripheral pulses, regular rate, rhythm, tachycardia Peripheral Pulses: 2+: carotid (R), carotid (L), femoral (R), femoral (L), dorsalis-pedis (R), dorsalis-pedis (L) Abdomen: normal bowel sounds, non-tender, soft Male Genitalia: deferred Rectal: deferred Back: Normal inspection Skin: normal color, warm/dry Extremities: normal range of motion, non-tender, normal inspection, normal capillary refill Neuro/Psych: No alert ICD10 Worksheet Patient Problems: Problems Problem Status Onset STEMI (ST elevation myocardial infarction) Acute Abscess of axilla Active Fever Active Obesity Active Renal failure syndrome Active
[2016-12-01] MEDS: FAMOTIDINE 20 MG/NACL 50 ML IV SCH ×2 (09:09→20:09)
[2016-12-01] MEDS: ASPIRIN RECTAL 300 MG SUPP PR SCH (09:10)
[2016-12-01] MEDS: PRASUGREL HCL 10 MG TAB PO SCH (09:10)
[2016-12-01] MEDS: ATORVASTATIN CALCIUM 40 MG TAB PO SCH (09:29)
[2016-12-01] MEDS ORDERED: POTASSIUM Cl (KCl) 50 ML IV ONE ×4 (10:00→19:30)
[2016-12-01] MEDS ORDERED: POTASSIUM Cl (KCl) 100 ML IV SCH (10:00)
[2016-12-01] MEDS ORDERED: CALCIUM GLUCONATE 50 ML IV ONE (10:00)
--- NOTE | 2016-12-01 10:15 | ECHO ---
[id number] + + [address] : : [place] [address] : : [phone] + + Adult Echocardiographic Report + + :Name: ANGELA SCHROEDER SStudy Date: 12/01/2016 09:41 AM : : Hospital Admission Number: [id number] Loc ation: 256: :: 1985 Gender: Male : :Age: 31 yrs Race: WH,PTD : :Reason For Study: Shock : + + Left Ventricle LV is hyperdynamic in the segments that have normal motion (on balloon pump). EF slightly improved (on balloon pump). Question 35%. LV basal/mid inferoseptal wall and entire apical region are akinetic. Conclusion Limited 2-D echo. LV is hyperdynamic in the segments that have normal motion (on balloon pump). EF slightly improved (on balloon pump). Question 35%. Final Reading Physician: Bre Chery signed on 12/01/2016 10:14 AM Ordering Physician: Cl Acosta Performed By: Padmini Bridges RDCS
[2016-12-01 10:25] LABS: PHENCYCLIDINE URINE BCH < 6 ng/ml (NEGATIVE); PHENCYCLIDINE URINE BCH NEGATIVE (NEGATIVE)
[2016-12-01 10:36] LABS: TETRAHYDROCANNABINOL URINE 166 ng/mL (NEGATIVE)
[2016-12-01] MEDS: NOREPINEPHRINE BITARTRATE 16 MG in D5W 250 ML IV SCH (11:03)
[2016-12-01 12:08] LABS: % IMMATURE GRANULYOCYTES 0.4 % (0.0-1.1); ABSOLUTE IMMATURE GRANULOCYTES 0.08 10^3/uL (0.00-0.10); ADD DIFF? NO; ADD MORPH? NO; ADD SCAN? NO; ATYPICAL LYMPHOCYTE FLAG 20 (0-99); FRAGMENT RBC FLAG 0 (0-99); HEMATOCRIT 40.3 % (40.0-51.0); HEMOGLOBIN 13.9 g/dL (13.7-17.5); LEFT SHIFT FLG 10 (0-99); LIPEMIA HEMOLYSIS FLAG 90 (0-99); MEAN CELL HEMOGLOBIN 31.7 pg (27.9-34.1); MEAN CELL HEMOGLOBIN CONCENTR. 34.5 g/dL (32.4-36.7); MEAN PLATELET VOLUME 10.6 fL (8.7-11.7); PLATELET CLUMPS FLAG 0 (0-99); PLATELET COUNT 251 10^3/uL (150-400); RED BLOOD CELL COUNT 4.38 10^6/uL (4.40-6.38); RED CELL DISTRIBUTION WIDTH 13.2 % (11.5-15.2)
[2016-12-01] MEDS: HEPARIN/DEXTROSE 500 ML IV SCH ×2 (13:12→15:16)
[2016-12-01 13:16] LABS: CK-MB INTERPRETATION NEGATIVE (NEGATIVE)
[2016-12-01 16:39] LABS: POTASSIUM 3.6 mEq/L (3.5-5.2)
--- NOTE | 2016-12-01 17:08 | SOAPPROG ---
SOAP Progress Note Assessment/Plan: Assessment: Asked by Dr. Acosta to speak with family and give 2nd opinion regarding patient' s care. entire chart reviewed. Catheterizations, intravascular ultrasound imaging, echocardiography all reviewed. Case discussed extensively with Dr. Acosta. 31-year-old man with 1 month history of progressive dyspnea and chest tightness admitted 2 nights ago with acute anterior wall myocardial infarction after argument with his . He was last seen without chest pain approximately 2 hours prior to admission. Initial troponin was negative. LAD thrombotic total occlusion treated with stenting after thrombectomy and angioplasty. Early stent thrombosis yesterday necessitating repeat stenting x2. Patient has had very high early troponin peak, currently intubated on intra -aortic balloon pump with tachycardia but otherwise hemodynamically stable. Echocardiography demonstrating large anterior, septal and apical wall motion abnormality. Apical thrombus cannot be excluded. Plan: I spent approximately 30 minutes speaking with the and family. At this point the patient's care is completely appropriate. They had appropriate questions regarding prognosis. Unfortunately these are going to be very difficult to answer early on. I did discuss that in worst case scenario this patient would require consideration for left ventricular assist device or cardiac transplantation. I also stated that this was in the unlikely possibility. For the time being maximal supportive care. Obviously, statin, carvedilol, SANKET inhibitor will need to be added when appropriate. Long-term dual anti-platelet therapy. Abstinence from cocaine. 12/01/16 16:49 Objective: Vital Signs Temp Pulse Resp BP Pulse Ox 99.7 F 117 H 16 93/60 L 100 12/01/16 14:00 12/01/16 16:00 12/01/16 16:00 12/01/16 16:00 12/01/16 16:00 Laboratory Results 12/01/16 11:48 12/01/16 16:15 11/30/16 12/01/16 12/02/16 05:59 05:59 05:59 Intake Total 2855 4198 Output Total 0 3970 1870 Balance 2855 228 -1870 PT 22.0 SEC (12.0-15.0) H 11/30/16 20:05 INR 1.91 (0.83-1.16) H 11/30/16 20:05 ICD10 Worksheet Patient Problems: Problems Problem Status Onset STEMI (ST elevation myocardial infarction) Acute Abscess of axilla Active Fever Active Obesity Active Renal failure syndrome Active
--- NOTE | 2016-12-01 17:21 | SOAPPROG ---
FATUMA Progress Note Assessment/Plan: 1. AMI - Pt presented with an acute anterior STEMI in the setting of cocaine use. He was treated with PCI of his LAD. Course complicated by early stent thrombosis. Pt treated with repeat PCI of his LAD with stents to proximal and distal edges. Peak CPK 8039. LVEF = 35%. Pt continues to require hemodynamic support with IABP and levophed. --> Continue asa, effient, and lipitor --> Cocaine now undetectable. Will add BB as appropriate 2. CM - Pt has an ICM with an EF of 35%. --> Add coreg and lisinopril as appropriate --> Consider intermediate accountant anticoagulation given anterior OK. Currently anticoagulated with heparin. 3. Hyperlipidemia - Pts LDL is 103. His goal is less than 70. --> Lipitor 40 mg daily 4. Polysubstance use 5. V- fib arrest - Pt with V-fib arrest in setting of STEMI. He is s/p revascularization. --> Continue to follow up telemetry 12/01/16 17:16 Subjective: Pt intubated and sedate IABP 2:1 levophed gtt Objective: Vital Signs Temp Pulse Resp BP Pulse Ox 37.6 C 112 H 16 105/67 100 12/01/16 14:00 12/01/16 17:00 12/01/16 17:00 12/01/16 17:00 12/01/16 17:00 Laboratory Results 12/01/16 11:48 12/01/16 16:15 11/30/16 12/01/16 12/02/16 05:59 05:59 05:59 Intake Total 2855 4198 Output Total 0 3970 1925 Balance 2855 228 -1925 PT 22.0 SEC (12.0-15.0) H 11/30/16 20:05 INR 1.91 (0.83-1.16) H 11/30/16 20:05 Physical Exam - Physical Exam General Appearance: other (sedate) Respiratory: other (corse bronchial BS) Cardiac/Chest: tachycardia Abdomen: normal bowel sounds, soft Skin: normal color Extremities: pedal edema, other (acess site C/D/I) Neuro/Psych: other (sedate) ICD10 Worksheet Patient Problems: Problems Problem Status Onset STEMI (ST elevation myocardial infarction) Acute Abscess of axilla Active Fever Active Obesity Active Renal failure syndrome Active
[2016-12-01 19:54] LABS: BASE EXCESS -0.2 mEq/L (-2.5-2.5); BICARBONATE 23 mEq/L (22-26); END TIDAL CO2 31; IONIZED CALCIUM 1.12 MMOL/L (1.12-1.30); MEASURED OXYGEN SATURATION 95 % (92-95); O2 CONCENTRATIION 40 % (0-100); P/F RATIO 188 RATIO; PATIENT RATE 18; PCO2 34 mmHg (34-38); PO2 75 mmHg (65-75); PRESSURE SUPPORT 10; TCO2 24 mEq/L (23-27)
[2016-12-01 19:58] LABS: HEMATOCRIT 37.6 % (40.0-51.0); HEMOGLOBIN 13.2 g/dL (13.7-17.5)
[2016-12-01] MEDS: ALPRAZolam 0.25 MG TAB PO PRN (20:09)
[2016-12-01 20:27] LABS: ALBUMIN 2.9 g/dL (3.5-5.0); ANION GAP 3 mEq/L (8-16); CALCIUM 7.9 mg/dL (8.5-10.4); CARBON DIOXIDE 24 mEq/l (22-31); CHLORIDE 105 mEq/L (97-110); CREATININE 1.1 mg/dL (0.7-1.3); GLOMERULAR FILTRATION RATE > 60; GLUCOSE 109 mg/dL (70-100); MAGNESIUM 1.8 mg/dL (1.6-2.3); SODIUM 132 mEq/L (134-144)
[2016-12-01] MEDS ORDERED: MAGNESIUM SULF 1 GM/DEXTROSE 100 ML IV ONE (20:56)
[2016-12-01] MEDS ORDERED: K PHOS 15 MMOL in D5W 250 ML IV ONE (20:56)
[2016-12-02] MEDS: fentaNYL/NACL 100 ML IV SCH (02:40)
[2016-12-02] MEDS: PROPOFOL/EMULSION 100 ML IV SCH (02:40)
[2016-12-02] MEDS: ALPRAZolam 0.25 MG TAB PO PRN (02:42)
[2016-12-02] MEDS: NOREPINEPHRINE BITARTRATE 16 MG in D5W 250 ML IV SCH (04:05)
[2016-12-02 04:25] LABS: BASE EXCESS -0.4 mEq/L (-2.5-2.5); BICARBONATE 23 mEq/L (22-26); IONIZED CALCIUM 1.13 MMOL/L (1.12-1.30); MEASURED OXYGEN SATURATION 98 % (92-95); PCO2 38 mmHg (34-38); PO2 108 mmHg (65-75); TCO2 25 mEq/L (23-27)
[2016-12-02 04:30] LABS: SIMV YES
[2016-12-02 04:31] LABS: END TIDAL CO2 32; O2 CONCENTRATIION 40 % (0-100); P/F RATIO 270 RATIO; PATIENT RATE 16; PRESSURE SUPPORT 8
[2016-12-02 04:56] LABS: MAGNESIUM 2.4 mg/dL (1.6-2.3); POTASSIUM 3.8 mEq/L (3.5-5.2)
[2016-12-02] MEDS: LORazepam 2 MG/ML INJ IVP PRN ×5 (05:12→19:44)
[2016-12-02] MEDS ORDERED: POTASSIUM Cl (KCl) 50 ML IV ONE (05:16)
[2016-12-02] MEDS: CHLORHEXIDINE GLUCONATE 15 ML UDL PO SCH ×2 (08:22→19:39)
[2016-12-02] MEDS: ASPIRIN RECTAL 300 MG SUPP PR SCH (08:22)
[2016-12-02] MEDS: PRASUGREL HCL 10 MG TAB PO SCH (08:22)
[2016-12-02] MEDS: ATORVASTATIN CALCIUM 40 MG TAB PO SCH (08:22)
[2016-12-02] MEDS: FAMOTIDINE 20 MG/NACL 50 ML IV SCH ×2 (08:22→20:30)
--- NOTE | 2016-12-02 08:57 | PDINTPN ---
Email Marketing Manager Progress Note Assessment/Plan: Assessment/Plan: * AMI * CAD-s/p stenting * Resp failure-stable on vent with minimal FIO2 req -hold extubation for now. -will assess for extubation once IABP is out * CHF * Agitation/Anxiety- * IABP * Sedation-will keep well sedated for now * Substance abuse * VTE proph * Stress ulcer proph Case discussed with family, RT and nurse 35 min of critical care time spent with patient. Subjective: 35 Objective: Vital Signs Temp Pulse Resp BP Pulse Ox 37.4 C 88 16 91/43 L 100 12/02/16 07:00 12/02/16 08:30 12/02/16 08:30 12/02/16 08:00 12/02/16 08:30 Laboratory Results 12/02/16 04:10 12/02/16 04:10 12/01/16 12/02/16 12/03/16 05:59 05:59 05:59 Intake Total 4198 2784 Output Total 3970 3295 Balance 228 -511 PT 22.0 SEC (12.0-15.0) H 11/30/16 20:05 INR 1.91 (0.83-1.16) H 11/30/16 20:05 Laboratory Results 12/02/16 04:10 12/02/16 04:10 12/02/16 12/02/16 12/01/16 04:10 04:10 09:40 Patient Temperature 37.4 DEGREES DEGREES pCO2 38 mmHg mmHg (34 - 38) pO2 108 mmHg H mmHg (65 - 75) Total CO2 25 mEq/L mEq/L (23 - 27) ABG pH 7.41 (7.35 - 7.45) ABG PO2/FiO2 Ratio 270 RATIO RATIO ABG O2 Saturation 98 % H % (92 - 95) ABG Base Excess -0.4 mEq/L mEq/L (-2.5 - 2.5) O2 Concentration % 40 % % Actual Respiration Rate 16 Set Respiration Rate 16 SIMV YES Tidal Volume 550 End Tidal CO2 32 PEEP 5 Pressure Support 8 Ionized Calcium 1.13 MMOL/L MMOL/L (1.12 - 1.30) Phosphorus 2.9 mg/dL D mg/dL (2.5 - 4.5) Magnesium 2.4 mg/dL H mg/dL (1.6 - 2.3) Urine Opiates Screen 357 ng/mL ng/mL Urine Barbiturates NEGATIVE ng/mL ng/mL Ur Phencyclidine Scrn NEGATIVE ng/mL ng/mL Ur Amphetamines Screen NEGATIVE ng/mL ng/mL U Benzodiazepines Scrn 3243 ng/mL ng/mL Urine Cocaine Screen NEGATIVE ng/mL ng/mL U Marijuana (THC) Screen 166 ng/mL ng/mL CXR-reviewed by myself. No change. ETT okay - Time Spent With Patient Time Spent With Patient: 35 Physical Exam - Physical Exam General Appearance: other (sedated), No alert EENT: PERRL/EOMI, ET tube Neck: non-tender Respiratory: rales (few), No respiratory distress, No stridor, No wheezing Cardiac/Chest: normal peripheral pulses, regular rate, rhythm, systolic murmur Peripheral Pulses: 2+: carotid (R), carotid (L), femoral (R), femoral (L), dorsalis-pedis (R), dorsalis-pedis (L) Abdomen: normal bowel sounds, non-tender, soft Male Genitalia: deferred Rectal: deferred Skin: normal color, warm/dry Extremities: normal range of motion, non-tender, normal inspection, normal capillary refill ICD10 Worksheet Patient Problems: Problems Problem Status Onset STEMI (ST elevation myocardial infarction) Acute Abscess of axilla Active Fever Active Obesity Active Renal failure syndrome Active
[2016-12-02] MEDS ORDERED: PANTOPRAZOLE SODIUM 40 MG in NS 100 ML IV SCH (09:00)
[2016-12-02] MEDS ORDERED: NS 500 ML IV PRN (09:45)
[2016-12-02] MEDS ORDERED: FUROSEMIDE 20 MG/2 ML VIAL IVP ONE (10:29)
--- NOTE | 2016-12-02 10:35 | SOAPPROG ---
FATUMA Progress Note Assessment/Plan: 1. AMI - Pt presented with an acute anterior STEMI in the setting of cocaine use. He was treated with PCI of his LAD. Course complicated by early stent thrombosis. Pt treated with repeat PCI of his LAD with stents to proximal and distal edges. Peak CPK 8039. LVEF = 35%. Pt continues to require hemodynamic support with IABP and levophed. HR has trended down. Anticipate another 24 hours of hemodynamic support. Will try to change levophed to dobutamine now that HR has come down. --> Continue asa, effient, and lipitor --> Cocaine now undetectable. Will add BB as appropriate 2. CM - Pt has an ICM with an EF of 35%. --> Add coreg and lisinopril as appropriate --> Consider snf anticoagulation given anterior NE. Currently anticoagulated with heparin. 3. Hyperlipidemia - Pts LDL is 103. His goal is less than 70. --> Lipitor 40 mg daily 4. Polysubstance use 5. V- fib arrest - Pt with V-fib arrest in setting of STEMI. He is s/p revascularization. --> Continue to follow up telemetry Subjective: Pt intubated and sedate Continues to require hemodynamic support. No events overnight HR is now in normal range Objective: Vital Signs Temp Pulse Resp BP Pulse Ox 37.4 C 97 16 92/48 L 100 12/02/16 07:00 12/02/16 09:41 12/02/16 09:00 12/02/16 09:41 12/02/16 09:00 Laboratory Results 12/02/16 04:10 12/02/16 04:10 12/01/16 12/02/16 12/03/16 05:59 05:59 05:59 Intake Total 7071 2789 Output Total 8044 5605 Balance 228 -511 PT 22.0 SEC (12.0-15.0) H 11/30/16 20:05 INR 1.91 (0.83-1.16) H 11/30/16 20:05 Physical Exam - Physical Exam General Appearance: other (sedate) Respiratory: other (corse breath sounds) Cardiac/Chest: regular rate, rhythm Abdomen: normal bowel sounds, soft Skin: normal color Extremities: pedal edema, other (IABP, A-line sites intact.) Neuro/Psych: other (sedate) ICD10 Worksheet Patient Problems: Problems Problem Status Onset STEMI (ST elevation myocardial infarction) Acute Abscess of axilla Active Fever Active Obesity Active Renal failure syndrome Active
[2016-12-02] MEDS ORDERED: DOBUTamine/DEXTROSE 250 ML IV SCH (13:30)
[2016-12-02] MEDS: HEPARIN/DEXTROSE 500 ML IV SCH (14:00)
[2016-12-02 14:29] LABS: % IMMATURE GRANULYOCYTES 0.5 % (0.0-1.1); ABSOLUTE IMMATURE GRANULOCYTES 0.08 10^3/uL (0.00-0.10); ADD DIFF? NO; ADD MORPH? NO; ADD SCAN? NO; ATYPICAL LYMPHOCYTE FLAG 10 (0-99); FRAGMENT RBC FLAG 0 (0-99); HEMATOCRIT 33.8 % (40.0-51.0); HEMOGLOBIN 11.9 g/dL (13.7-17.5); LEFT SHIFT FLG 10 (0-99); LIPEMIA HEMOLYSIS FLAG 90 (0-99); MEAN CELL HEMOGLOBIN CONCENTR. 35.2 g/dL (32.4-36.7); MEAN CELL VOLUME 90.9 fL (81.5-99.8); MEAN PLATELET VOLUME 10.8 fL (8.7-11.7); PLATELET CLUMPS FLAG 0 (0-99); PLATELET COUNT 178 10^3/uL (150-400); RED BLOOD CELL COUNT 3.72 10^6/uL (4.40-6.38); RED CELL DISTRIBUTION WIDTH 13.2 % (11.5-15.2)
[2016-12-02] MEDS: DEXMEDETOMIDINE HCL 400 MCG in NS 100 ML IV SCH ×2 (15:05→19:35)
[2016-12-02 15:20] LABS: 2C19S INTERPRETATION See Comments
[2016-12-02 16:14] LABS: ANION GAP 5 mEq/L (8-16); CALCIUM 7.6 mg/dL (8.5-10.4); CARBON DIOXIDE 24 mEq/l (22-31); CHLORIDE 106 mEq/L (97-110); CREATININE 0.8 mg/dL (0.7-1.3); GLOMERULAR FILTRATION RATE > 60; GLUCOSE 107 mg/dL (70-100); POTASSIUM 3.5 mEq/L (3.5-5.2); SODIUM 135 mEq/L (134-144)
[2016-12-02] MEDS ORDERED: PROTOCOL POTASSIUM 1 DOSE MISC PRN (16:17)
[2016-12-02] MEDS: POTASSIUM Cl (KCl) 50 ML IV SCH ×3 (16:23→17:48)
[2016-12-02] MEDS ORDERED: PETROLAT,WHT/MIN OIL/SOD CHL 3.5 GM OPHT.OINT EACHEYE PRN (16:31)
[2016-12-03] MEDS: LORazepam 2 MG/ML INJ IVP PRN ×7 (00:44→22:04)
[2016-12-03 00:54] LABS: POTASSIUM 3.9 mEq/L (3.5-5.2)
[2016-12-03] MEDS ORDERED: POTASSIUM Cl (KCl) 50 ML IV ONE ×3 (01:14→18:10)
[2016-12-03] MEDS ORDERED: POTASSIUM Cl (KCl) 20 MEQ/50 ML BAG IV ONE (01:32)
[2016-12-03 04:30] LABS: BASE EXCESS -2.7 mEq/L (-2.5-2.5); BICARBONATE 20 mEq/L (22-26); IONIZED CALCIUM 1.15 MMOL/L (1.12-1.30); MEASURED OXYGEN SATURATION 97 % (92-95); PCO2 32 mmHg (34-38); PO2 91 mmHg (65-75); TCO2 21 mEq/L (23-27)
[2016-12-03 04:36] LABS: END TIDAL CO2 29; O2 CONCENTRATIION 40 % (0-100); P/F RATIO 228 RATIO; PATIENT RATE 16; PRESSURE SUPPORT 7; SIMV YES
[2016-12-03 06:37] LABS: MAGNESIUM 1.7 mg/dL (1.6-2.3); POTASSIUM 3.9 mEq/L (3.5-5.2)
[2016-12-03] MEDS: HEPARIN/DEXTROSE 500 ML IV SCH (06:55)
[2016-12-03] MEDS ORDERED: MAGNESIUM SULF 1 GM/DEXTROSE 100 ML IV ONE (07:43)
[2016-12-03] MEDS ORDERED: MAGNESIUM SULF 1 GM/DEXTROSE 100 ML BAG IV ONE (07:56)
[2016-12-03] MEDS: CHLORHEXIDINE GLUCONATE 15 ML UDL PO SCH ×2 (07:59→20:03)
[2016-12-03] MEDS: ASPIRIN RECTAL 300 MG SUPP PR SCH (08:00)
[2016-12-03] MEDS: FAMOTIDINE 20 MG/NACL 50 ML IV SCH ×2 (08:00→20:12)
[2016-12-03] MEDS: DEXMEDETOMIDINE HCL 400 MCG in NS 100 ML IV SCH ×3 (08:02→20:15)
--- NOTE | 2016-12-03 08:56 | PDINTPN ---
Vacuum Frame Operator Progress Note Assessment/Plan: Assessment/Plan: * AMI * CAD-s/p stenting * Resp failure-stable on vent with minimal FIO2 req -not ready for extubation. -will assess for extubation once IABP is out * CHF * Agitation/Anxiety- * IABP-may be removed today * Sedation-will keep well sedated for now * Substance abuse * VTE proph * Stress ulcer proph Case discussed with, RT and nurse 35 min of critical care time spent with patient. Subjective: Sedated Objective: Vital Signs Temp Pulse Resp BP Pulse Ox 36.6 C 91 17 98/60 L 100 12/03/16 07:00 12/03/16 07:44 12/03/16 07:44 12/03/16 07:44 12/03/16 07:44 Laboratory Results 12/02/16 14:13 12/03/16 05:26 12/02/16 12/03/16 12/04/16 05:59 05:59 05:59 Intake Total 2784 2408 Output Total 3295 2475 Balance -511 -67 PT 22.0 SEC (12.0-15.0) H 11/30/16 20:05 INR 1.91 (0.83-1.16) H 11/30/16 20:05 - Time Spent With Patient Time Spent With Patient: 35 Physical Exam - Physical Exam General Appearance: WD/WN, no apparent distress, other (sedated), No alert EENT: PERRL/EOMI, normal ENT inspection, ET tube Neck: non-tender, full range of motion Respiratory: chest non-tender, lungs clear, No respiratory distress, No wheezing Cardiac/Chest: normal peripheral pulses, regular rate, rhythm, other (IABP sounds) Peripheral Pulses: 2+: carotid (R), carotid (L), femoral (R), femoral (L), dorsalis-pedis (R), dorsalis-pedis (L) Abdomen: normal bowel sounds, non-tender, soft Male Genitalia: deferred Rectal: deferred Skin: normal color, warm/dry Extremities: normal inspection, normal capillary refill Neuro/Psych: other (sedated) ICD10 Worksheet Patient Problems: Problems Problem Status Onset STEMI (ST elevation myocardial infarction) Acute Abscess of axilla Active Fever Active Obesity Active Renal failure syndrome Active
[2016-12-03] MEDS ORDERED: MIDAZOLAM 2 MG/2 ML VIAL IVP PRN (09:06)
[2016-12-03] MEDS ORDERED: LIDOCAINE 1% 30 ML SDV ONE (10:24)
[2016-12-03] MEDS ORDERED: LIDOCAINE 1% 30 ML SDV IV ONE (10:30)
[2016-12-03] MEDS: PRASUGREL HCL 10 MG TAB PO SCH (11:37)
[2016-12-03] MEDS: ATORVASTATIN CALCIUM 40 MG TAB PO SCH (11:37)
[2016-12-03] MEDS: fentaNYL/NACL 100 ML IV SCH (12:45)
[2016-12-03 13:20] LABS: POTASSIUM 3.9 mEq/L (3.5-5.2)
--- NOTE | 2016-12-03 14:05 | PDCARPN ---
Cardiology Progress Note Assessment/Plan: Anterior ST Segment Elevation Myocardial Infarction- s/p PCI of thrombotic occlusion of the proximal LAD in the early hours of 11/30. Returned to cardiac dental laboratory technician apprentice approximately 12 hours later secondary to recurrent chest discomfort. Found to have subacute stent thrombosis treated with catheter-based thrombectomy and additional PCI/stenting. No evidence for repeat stent thrombosis. CPK peaked at 8000. Coronary Artery Disease- PCI procedures as above for proximal LAD occlusion. No other flow-limiting stenoses in either coronary territories. > Plan for dual-antiplatelet therapy for a minimum of 12 months. (Could consider deferring aspirin and treat with single antiplatelet therapy while on warfarin.) > Aggressive secondary prevention. Now on atorvastatin. Ischemic Cardiomyopathy- severely reduced LV systolic function with LAD territory hypokinesis to akinesis. Appears to be volume compensated. >IABP was removed today. > Beta lynette and an SANKET inhibitor temporarily on hold. > Continue low-dose IV dobutamine until 24 hours post extubation. > Will plan for 3-6 months of warfarin therapy in light of risk for LV mural thrombus. 12/03/16 14:13 Subjective: Intubated and sedated. Reviewed/Discussed With: family, hospitalist Objective: Vital Signs (8 Hrs) Temp Pulse Resp BP Pulse Ox 12/03/16 12:00 36.8 C 105 H 20 109/62 98 12/03/16 11:00 96 21 H 106/63 98 12/03/16 10:00 108 H 29 H 121/71 H 93 12/03/16 09:00 95 21 H 100/62 99 12/03/16 07:44 91 17 98/60 L 100 12/03/16 07:00 36.6 C 92 18 100/61 100 Intake/Output (24 Hrs) 12/02/16 12/03/16 12/04/16 05:59 05:59 05:59 Intake Total 2785 2408 Output Total 6797 0718 067 Balance -511 -67 -280 Intake: IV Intake (ml) 1371 1104 IV Infused (ml) 1338 1304 DOBUTamine/DEXTROSE 250 85 ml @ Titrate IV CONT URIEL Rx#:[id number] Dexmedetomidine HCl 400 460 mcg In Ns 100 ml @ Per Protocol IV CONT URIEL Rx#: [id number] Heparin/Dextrose 500 ml @ 631 561 Per Protocol IV CONT URIEL Rx#:[id number] Norepinephrine Bitartrate 230 77 16 mg In D5w 250 ml @ Per Protocol IV CONT URIEL Rx#:[id number] Propofol/Emulsion 100 ml 374 80 @ Per Protocol IV CONT URIEL Rx#:[id number] fentaNYL/NACL 100 ml @ 103 41 Per Protocol IV CONT URIEL Rx#:[id number] Tube Flush (ml) 75 Output: Urine (ml) 3195 2475 280 Catheter 3195 2475 280 OG Drainage (ml) 100 Stomach [place] 16 100 [place] Other: Weight 74.4 kg 74 kg Result Diagrams: 12/02/16 14:13 12/03/16 12:50 Cardiac Labs: Cardiac Lab Results (72 Hrs) 12/01/16 12/01/16 11/30/16 11:48 00:20 20:05 CK-MB (CK-2) Fraction 92.00 H 400.00 H 537.00 H Troponin I 100.000 H 151.000 H 319.000 H - Physical Exam Constitutional: other (Intubated and sedated.) Eyes: anicteric sclera Ears, Nose, Mouth, Throat: moist mucous membranes Cardiovascular: regular rate and rhythm, no murmurs, no gallops Respiratory: clear to auscultate bilat (anteriorly) Gastrointestinal: normoactive bowel sounds, no masses Skin: no rashes, no edema Neurologic: other (Sedated) Psychiatric: other (Sedated) ICD10 Worksheet Patient Problems: Problems Problem Status Onset STEMI (ST elevation myocardial infarction) Acute Abscess of axilla Active Fever Active Obesity Active Renal failure syndrome Active
--- NOTE | 2016-12-03 14:25 | PDDXCAT ---
Diagnostic Cath Note - . Date: 12/03/16 Inspector And Tester: Alvarado Indication: other (IABP no longer needed for hemodynamic support.) - Procedure Procedure: other (IABP removal.) Estimated blood loss: <50ml Closure method: other (Femostop compression device) Intervention: The previously placed retention sutures were removed. The left femoral IABP insertion site was prepped in sterile fashion. Left groin infiltrated with 1% lidocaine. Central lumen of the IABP catheter was aspirated with a 10 cc syringe. IABP catheter and insertion sheath were removed and a FemoStop compression device was placed. Left dorsalis pedis and posterior tibial pulses confirmed with Doppler. Good O2 saturation wave form obtained with sensor on left second toe. Patient Problems: Problems Problem Status Onset STEMI (ST elevation myocardial infarction) Acute Abscess of axilla Active Fever Active Obesity Active Renal failure syndrome Active
[2016-12-03 20:58] LABS: BASE EXCESS -2.5 mEq/L (-2.5-2.5); BICARBONATE 20 mEq/L (22-26); MEASURED OXYGEN SATURATION 98 % (92-95); PCO2 32 mmHg (34-38); PO2 110 mmHg (65-75); TCO2 21 mEq/L (23-27)
[2016-12-03 21:02] LABS: O2 CONCENTRATIION 80 % (0-100); P/F RATIO 138 RATIO
[2016-12-03 21:20] LABS: COLOR YELLOW; LEUKOCYTE ESTERASE,URINE NEGATIVE (NEGATIVE); NITRITE,URINE NEGATIVE (NEGATIVE)
[2016-12-03 21:25] LABS: MUCUS TRACE /lpf (NONE-1+); RBC,URINE 25-50 /hpf (0-3)
[2016-12-04] MEDS: DEXMEDETOMIDINE HCL 400 MCG in NS 100 ML IV SCH ×2 (00:14→04:10)
[2016-12-04] MEDS: LORazepam 2 MG/ML INJ IVP PRN ×5 (00:45→21:10)
[2016-12-04 01:11] LABS: POTASSIUM 4.3 mEq/L (3.5-5.2)
--- NOTE | 2016-12-04 05:36 | PDINTPN ---
Cosmetology Instructor Progress Note Assessment/Plan: Assessment/Plan: * AMI * CAD-s/p stenting * Resp failure-self extubated last night -stable on minimal O2 * CHF * Agitation/Anxiety-appears comfortable. * IABP-out * Sedation-wean off * Substance abuse * VTE proph * Stress ulcer proph Case discussed with, RT and nurse Subjective: Resting comfortably. No agitation currently Objective: Vital Signs Temp Pulse Resp BP Pulse Ox 36.9 C 102 H 21 H 95/64 L 100 12/04/16 04:00 12/04/16 05:00 12/04/16 05:00 12/04/16 05:00 12/04/16 05:00 Laboratory Results 12/02/16 14:13 12/04/16 00:43 12/02/16 12/03/16 12/04/16 05:59 05:59 05:59 Intake Total 2784 2408 795 Output Total 3295 2475 1000 Balance -511 -67 -205 PT 22.0 SEC (12.0-15.0) H 11/30/16 20:05 INR 1.91 (0.83-1.16) H 11/30/16 20:05 Physical Exam - Physical Exam General Appearance: no apparent distress, No alert EENT: PERRL/EOMI, normal ENT inspection Neck: non-tender, full range of motion, supple, normal inspection Respiratory: crackles (few), No respiratory distress, No wheezing Cardiac/Chest: normal peripheral pulses, regular rate, rhythm, systolic murmur Peripheral Pulses: 2+: carotid (R), carotid (L), femoral (R), femoral (L), dorsalis-pedis (R), dorsalis-pedis (L) Abdomen: normal bowel sounds, non-tender, soft Male Genitalia: deferred Skin: normal color, warm/dry Extremities: non-tender ICD10 Worksheet Patient Problems: Problems Problem Status Onset STEMI (ST elevation myocardial infarction) Acute Abscess of axilla Active Fever Active Obesity Active Renal failure syndrome Active
[2016-12-04 06:47] LABS: MAGNESIUM 1.9 mg/dL (1.6-2.3); POTASSIUM 4.1 mEq/L (3.5-5.2)
[2016-12-04] MEDS: CHLORHEXIDINE GLUCONATE 15 ML UDL PO SCH ×2 (08:03→20:38)
[2016-12-04 09:10] LABS: HEMATOCRIT 35.7 % (40.0-51.0); HEMOGLOBIN 12.6 g/dL (13.7-17.5); MEAN CELL HEMOGLOBIN 31.2 pg (27.9-34.1); MEAN CELL HEMOGLOBIN CONCENTR. 35.3 g/dL (32.4-36.7); MEAN CELL VOLUME 88.4 fL (81.5-99.8); RED BLOOD CELL COUNT 4.04 10^6/uL (4.40-6.38); RED CELL DISTRIBUTION WIDTH 12.4 % (11.5-15.2)
[2016-12-04 09:24] LABS: ANION GAP 10 mEq/L (8-16); CALCIUM 8.4 mg/dL (8.5-10.4); CARBON DIOXIDE 21 mEq/l (22-31); CHLORIDE 105 mEq/L (97-110); CREATININE 0.7 mg/dL (0.7-1.3); GLOMERULAR FILTRATION RATE > 60; GLUCOSE 94 mg/dL (70-100); POTASSIUM 3.8 mEq/L (3.5-5.2); SODIUM 136 mEq/L (134-144)
--- NOTE | 2016-12-04 09:44 | CPEKG ---
Heart Rate: 132 RR Interval: 455 P-R Interval: 132 QRSD Interval: 78 QT Interval: 288 QTC Interval: 427 P [place]: 66 QRS [place]: 94 T Wave [place]: -16 EKG Severity - ABNORMAL ECG - EKG Impression: SINUS TACHYCARDIA EKG Impression: ST ELEVATION, PROBABLE RECENT ANTERIOR INJURY Electronically Signed By: Baljeet Wolf 04-Dec-2016 22:34:57
[2016-12-04 10:19] LABS: CK-MB INTERPRETATION NEGATIVE (NEGATIVE)
[2016-12-04] MEDS: FAMOTIDINE 20 MG/NACL 50 ML IV SCH ×2 (10:26→21:10)
[2016-12-04] MEDS: ASPIRIN RECTAL 300 MG SUPP PR SCH (10:26)
[2016-12-04] MEDS: PRASUGREL HCL 10 MG TAB PO SCH ×2 (10:26→16:31)
[2016-12-04] MEDS: ATORVASTATIN CALCIUM 40 MG TAB PO SCH ×2 (10:27→16:31)
[2016-12-04] MEDS ORDERED: PROPOFOL/EMULSION 1,000 MG/100 ML BOTTLE IV ONE (11:09)
[2016-12-04] MEDS ORDERED: fentanYL/NACL/100 ML BAG IV ONE ×2 (11:12→15:50)
[2016-12-04 11:14] LABS: CREATINE KINASE-MB FRACTION 5.71 ng/mL (0-3.19)
[2016-12-04] MEDS ORDERED: VECURONIUM BROMIDE 50 MG in D5W 50 ML IV SCH (11:30)
--- NOTE | 2016-12-04 11:30 | PDCARPN ---
Cardiology Progress Note Assessment/Plan: Anterior ST Segment Elevation Myocardial Infarction- s/p PCI of thrombotic occlusion of the proximal LAD in the early hours of 11/30. Returned to cardiac laborer tan house approximately 12 hours later secondary to recurrent chest discomfort. Found to have subacute stent thrombosis treated with catheter-based thrombectomy and additional PCI/stenting. No evidence for repeat stent thrombosis. CPK peaked at 8000. Self-extubated last p.m. Intermittently reports chest pain this a.m. HR overnight 110 to 120 bpm. Today, HR is up to 140 to 150 bpm with sinus tachycardia. 12-lead ECG w/ slight worsening of precordial ST segment elevation. Borderline B/P at 95 to 100 mmHg. Echo continues to show LAD territory akinesis with hypercontractile function in other territories. No evidence of free wall rupture. Overall clinical picture consistent with cardiogenic shock. Coronary Artery Disease- PCI procedures as above for proximal LAD occlusion. No other flow-limiting stenoses in other coronary territories. > Question as to whether he has re-occluded his LAD. Ischemic Cardiomyopathy- severely reduced LV systolic function with LAD territory hypokinesis to akinesis. > Now with shock parameters. Plan to go back to laborer tan house to reassess LAD status and place Impella for support. > May need to consider transfer to the [facility] for advanced therapy. 12/04/16 11:16 Reviewed/Discussed With: family, hospitalist Objective: Vital Signs (8 Hrs) Temp Pulse Resp BP Pulse Ox 12/04/16 10:00 137 H 26 H 98/58 L 100 12/04/16 09:00 135 H 32 H 96/68 L 100 12/04/16 08:00 153 H 27 H 119/77 100 12/04/16 07:00 38.4 C H 128 H 29 H 113/74 97 12/04/16 06:00 119 H 17 112/80 100 12/04/16 05:00 102 H 21 H 95/64 L 100 12/04/16 04:00 36.9 C 102 H 22 H 91/63 L 100 Intake/Output (24 Hrs) 12/03/16 12/04/16 12/05/16 05:59 05:59 05:59 Intake Total 4691 1998 Output Total 4733 2101 Balance -23 -338 Intake: IV Intake (ml) 1104 1122 IV Infused (ml) 1304 876 DOBUTamine/DEXTROSE 250 85 111 ml @ Titrate IV CONT URIEL Rx#:[id number] Dexmedetomidine HCl 400 460 618 mcg In Ns 100 ml @ Per Protocol IV CONT URIEL Rx#: [id number] Heparin/Dextrose 500 ml @ 561 78 Per Protocol IV CONT URIEL Rx#:[id number] Norepinephrine Bitartrate 77 16 mg In D5w 250 ml @ Per Protocol IV CONT URIEL Rx#:[id number] Propofol/Emulsion 100 ml 80 @ Per Protocol IV CONT URIEL Rx#:[id number] fentaNYL/NACL 100 ml @ 41 69 Per Protocol IV CONT URIEL Rx#:[id number] Output: Urine (ml) 5511 2628 Catheter 5105 2625 Other: Weight 74 kg Result Diagrams: 12/04/16 09:00 12/04/16 09:00 Cardiac Labs: Cardiac Lab Results (72 Hrs) 12/01/16 11:48 CK-MB (CK-2) Fraction 92.00 H Troponin I 100.000 H - Physical Exam Constitutional: other (Appears acutely ill.) Eyes: anicteric sclera Ears, Nose, Mouth, Throat: moist mucous membranes Cardiovascular: other (Tachycardia; no gallop) Respiratory: clear to auscultate bilat (anterior) Gastrointestinal: normoactive bowel sounds, no masses Skin: no rashes, no edema Neurologic: other (groggy from sedation) ICD10 Worksheet Patient Problems: Problems Problem Status Onset STEMI (ST elevation myocardial infarction) Acute Abscess of axilla Active Fever Active Obesity Active Renal failure syndrome Active
[2016-12-04] MEDS ORDERED: LIDOCAINE 1% 30 ML SDV ONE (11:48)
[2016-12-04] MEDS ORDERED: fentaNYL 100 MCG/2 ML INJ ONE (11:49)
[2016-12-04] MEDS ORDERED: VECURONIUM BROMIDE 10 MG VIAL ONE (11:49)
[2016-12-04] MEDS ORDERED: MIDAZOLAM 2 MG/2 ML VIAL ONE ×2 (11:49→12:13)
[2016-12-04] MEDS ORDERED: IOPAMIDOL (ISOVUE 370) 100 ML BTL IV ONE (11:50)
[2016-12-04] MEDS: PROPOFOL/EMULSION 100 ML IV SCH (12:00)
[2016-12-04] MEDS: fentaNYL/NACL 100 ML IV SCH ×2 (12:00→16:38)
[2016-12-04 12:06] LABS: CREATINE KINASE-MB FRACTION 4.65 ng/mL (0-3.19)
[2016-12-04 12:07] LABS: CK-MB INTERPRETATION NEGATIVE (NEGATIVE)
--- NOTE | 2016-12-04 12:08 | ECHO ---
[id number] + + [address] : : [place] [address] : : [phone] + + Adult Echocardiographic Report + + :Name: ANGELA SCHROEDER SStudy Date: 12/04/2016 10:18 AM : : Hospital Admission Number: [id number] Loc ation: 256: :: 1985 Gender: Male Height: 67 in : :Age: 31 yrs Race: WH,PTD Weight: 163 lb : :Reason For Study: Eval LV Fx : : BSA: 1.9 me ters2 : :History: Chest Pain, Post Cath : + + MMode/2D Measurements \T\ Calculations IVSd: 0.92 cm LVIDd: 4.4 cm FS: 21.3 % Ao root diam: LVPWd: 1.1 cm LVIDs: 3.4 cm EDV(Teich): 2.9 cm 86.8 ml ACS: 1.7 cm ESV(Teich): 49.1 ml EF(Teich): 43.4 % LVLd ap4: 7.6 cm SV(MOD-sp4): EDV(MOD-sp4): 27.0 ml 58.0 ml LVLs ap4: 6.8 cm ESV(MOD-sp4): 31.0 ml EF(MOD-sp4): 46.6 % Normal Measurement Values: + + :LVIDd (3.5-5.7cm) IVSd (0.6-1.1cm) LVPWd (0.6-1.1cm) Aortic Root (2.0-3.7cm)Left Atrium (1.5-4.0cm): :LV Vol(d) (76-115ml) LV Vol(s) (29-48ml) Ejec Fraction (50-65%)PV Bimal (0.6- 1.2m/s) TV Bimal (0.4-1.0m/s) : :MV E Bimal (0.8-1.0m/s)MV A Bimal (0.3-1.0m/s)LVOT Bimal (0.7-1.2m/s) Asc Ao Bimal ( 0.9-1.8m/s) : + + Doppler Measurements \T\ Calculations MV E max bimal: Ao V2 max: LV V1 max: PA V2 max: 112.5 cm/sec 129.0 cm/sec 96.3 cm/sec 116.7 cm/sec Ao max PG: LV V1 max PG: PA max P.7 mmHg 3.7 mmHg 5.5 mmHg Left Ventricle The left ventricle is normal in size. There is normal left ventricular wall thickness. Tachycardia. LV basal/mid septal wall and entire apical region is akinetic. Ejection Fraction = 35%. Right Ventricle The right ventricle is normal in size and function. Atria The left atrial size is normal. Right atrial size is normal. Mitral Valve The mitral valve is normal in structure and function. There is no evidence of mitral valve prolapse. There is no mitral valve stenosis. There is no mitral regurgitation noted. Tricuspid Valve Normal tricuspid valve. No tricuspid regurgitation. Aortic Valve The aortic valve is normal in structure and function. The aortic valve is trileaflet. The aortic valve opens well. There is no aortic stenosis. There is no aortic insufficiency. Pulmonic Valve The pulmonic valve is normal in structure and function. There is no pulmonic valvular regurgitation. Great Vessels The aortic root is normal size. Pericardium/Pleural There is no pericardial effusion. Conclusion A complete two-dimensional transthoracic echocardiogram was performed (2D, M-mode, Doppler and color flow Doppler). Ejection Fraction = 35%. Tachycardia. LV basal/mid septal wall and entire apical region is akinetic. The mitral valve is normal in structure and function. The aortic valve is normal in structure and function. There is no pericardial effusion. Final Reading Physician: Bre Fernández signed on 12/04/2016 12:07 PM Ordering Physician: Ant Childers Performed By: Tang Mills, PANCHOCS
[2016-12-04] MEDS ORDERED: SUCCINYLCHOLINE CHLORIDE*ANESTHESIA ONLY*200 MG/10 ML SYR IVP ONE ×2 (12:13→12:17)
[2016-12-04] MEDS ORDERED: MIDAZOLAM 2 MG/2 ML VIAL IVP ONE (12:15)
[2016-12-04] MEDS ORDERED: SUCCINYLCHOLINE CHLORIDE 200 MG/10 ML VIAL IVP ONE (12:17)
[2016-12-04] MEDS ORDERED: PHENYLEPHRINE HCL 100 MCG/ML SYR ONE (12:32)
[2016-12-04] MEDS ORDERED: HEPARIN 10,000 UNIT/10 ML MDV ONE (12:33)
[2016-12-04 13:02] LABS: BASE EXCESS -7.9 mEq/L (-2.5-2.5); BICARBONATE 17 mEq/L (22-26); MEASURED OXYGEN SATURATION 99 % (92-95); PCO2 35 mmHg (34-38); PO2 236 mmHg (65-75); TCO2 18 mEq/L (23-27)
[2016-12-04 13:03] LABS: O2 CONCENTRATIION 100 % (0-100); P/F RATIO 236 RATIO; SIMV YES
[2016-12-04 13:04] LABS: PRESSURE SUPPORT 7
--- NOTE | 2016-12-04 13:07 | GPN ---
[f rep st] PROCEDURE NOTE PROCEDURE: Intubation occurred in the intensive care unit with continuous pulse ox, EKG, and blood pressure monitoring. Patient was sedated with 5 mg of Versed and 70 mg of succinylcholine. Via GlideScope, patient intub ated with an #8 endotracheal tube and taped in at 24 cm at the lip. Tracheal position was confirmed via capnograph. Patient tolerated the procedure well. There were no apparent complications. Port able chest x-ray has been called for. /[id number]/MODL
--- NOTE | 2016-12-04 14:12 | PDDXCAT ---
Diagnostic Cath Note - . Date: 12/04/16 Bottom Sander: Alvarado Indication: other (Recent anterior VT; recurrent chest pain; increased ST elevation; hypotension and tachycardia c/w cardiogenic shock) - Procedure Access: right groin Procedure: left heart catheterization, coronary angiography, left ventriculogram , right heart catheterization - Materials Left Heart Cath size: 6F Left Heart Cath materials: standard multipack (JL4, JR4, pigtail) Right Heart Cath size: 7F Right Heart Cath materials: PWP catheter - Findings-Left Heart Catheterization LM: Normal. LAD: Recently stented segment widely patent. LCX: Mild irregularities. RCA: Not imaged. EDP: 34 mmHg LVEF: 40 to 45% Wall motion: Anterolateral and apical hypokinesis. Inferior wall is hyperdynamic. - Findings-Right Heart Catheterization RA: 13 mm Hg O2 sat 83.4% (SVC O2 sat 83.4% IVC O2 sat 82.6%) RV: 53/11 mmHg O2 sat 81.2% PA: 46/28/34 mmHg O2 sat 81.4% PAOP: 32 mmHg AO: 106/74/90 mmHg O2 sat 97.6% CO: 5.3 L/min CI: 9.8 L/min/sq mtr Estimated blood loss: <50ml Closure method: other (sheaths left in place) Assessment: 1. CAD as described above. No evidence for repeat subacute stent thrombosis. 2. Ischemic cardiomyopathy with moderately reduced left ventricular systolic function. The global impact to his cardiac function from his recent anterior myocardial infarction may be underestimated by the ejection fraction reported on this study secondary to markedly hyperdynamic contractility in the non-infarcted wall segments. 3. Mildly elevated PA pressures. 4. Markedly elevated left ventricular end diastolic pressure. Plan: Leave intubated with RFA and RFV sheaths in place at least overnight. Start IV phenylephrine to provide pure alpha agonist activity to support BP without worsening tachycardia. Correct acidosis (see ABG sent during cath). Look for source of acidosis (sepsis?) Patient Problems: Problems Problem Status Onset STEMI (ST elevation myocardial infarction) Acute Abscess of axilla Active Fever Active Obesity Active Renal failure syndrome Active
[2016-12-04] MEDS: ERTAPENEM 1 GM in NS 100 ML IV SCH (16:32)
[2016-12-04] MEDS ORDERED: NARCOTIC DRIP BAG-TOTAL ALL TYPES IV PRN (17:08)
[2016-12-04 17:59] LABS: BASE EXCESS -5.2 mEq/L (-2.5-2.5); BICARBONATE 19 mEq/L (22-26); MEASURED OXYGEN SATURATION 99 % (92-95); PCO2 36 mmHg (34-38); PO2 167 mmHg (65-75); TCO2 20 mEq/L (23-27)
[2016-12-04 18:07] LABS: O2 CONCENTRATIION 60 % (0-100); P/F RATIO 278 RATIO; SIMV YES
[2016-12-04 18:08] LABS: PRESSURE SUPPORT 7
[2016-12-04 18:19] LABS: POTASSIUM 4.2 mEq/L (3.5-5.2)
[2016-12-04 18:30] LABS: CK-MB INTERPRETATION NEGATIVE (NEGATIVE)
[2016-12-04 18:32] LABS: CREATINE KINASE-MB FRACTION 5.41 ng/mL (0-3.19)
[2016-12-04] MEDS ORDERED: LIDOCAINE 2% JELLY 20 ML (UROJECT) ONE (19:27)
[2016-12-04] MEDS: CARVEDILOL 3.125 MG TAB PO SCH (20:40)
[2016-12-05] MEDS: LORazepam 2 MG/ML INJ IVP PRN ×6 (00:52→16:30)
[2016-12-05] MEDS: fentaNYL/NACL 100 ML IV SCH ×2 (01:15→11:01)
[2016-12-05 06:18] LABS: MAGNESIUM 1.9 mg/dL (1.6-2.3); POTASSIUM 3.9 mEq/L (3.5-5.2)
[2016-12-05] MEDS ORDERED: POTASSIUM Cl (KCl) 50 ML IV ONE ×2 (06:44→20:57)
[2016-12-05] MEDS: CHLORHEXIDINE GLUCONATE 15 ML UDL PO SCH ×2 (08:05→19:58)
[2016-12-05] MEDS: ERTAPENEM 1 GM in NS 100 ML IV SCH (08:05)
[2016-12-05] MEDS: CARVEDILOL 3.125 MG TAB PO SCH (08:05)
[2016-12-05] MEDS: FAMOTIDINE 20 MG/NACL 50 ML IV SCH ×2 (08:05→20:45)
[2016-12-05] MEDS: ATORVASTATIN CALCIUM 40 MG TAB PO SCH (08:05)
[2016-12-05] MEDS: ASPIRIN RECTAL 300 MG SUPP PR SCH (08:05)
[2016-12-05] MEDS: PROPOFOL/EMULSION 100 ML IV SCH (08:06)
[2016-12-05] MEDS: PRASUGREL HCL 10 MG TAB PO SCH (08:06)
[2016-12-05] MEDS: NS 1,000 ML IV SCH ×2 (11:02→23:07)
[2016-12-05 11:15] LABS: HEMOGLOBIN 11.1 g/dL (13.7-17.5); MEAN CELL HEMOGLOBIN 31.3 pg (27.9-34.1); MEAN CELL HEMOGLOBIN CONCENTR. 34.7 g/dL (32.4-36.7); MEAN CELL VOLUME 90.1 fL (81.5-99.8); RED BLOOD CELL COUNT 3.55 10^6/uL (4.40-6.38); RED CELL DISTRIBUTION WIDTH 12.9 % (11.5-15.2)
[2016-12-05] MEDS ORDERED: ALPRAZolam 0.25 MG TAB TUBE PRN (11:24)
[2016-12-05] MEDS ORDERED: ACETAMINOPHEN 650 MG/20.3 ML UDCUP TUBE PRN (11:24)
[2016-12-05] MEDS ORDERED: HYDROCODONE/APAP 5/325 TAB TUBE PRN (11:25)
[2016-12-05] MEDS ORDERED: TEMAZEPAM 15 MG CAP TUBE PRN (11:26)
[2016-12-05 11:38] LABS: ANION GAP 6 mEq/L (8-16); CALCIUM 7.5 mg/dL (8.5-10.4); CARBON DIOXIDE 24 mEq/l (22-31); CHLORIDE 107 mEq/L (97-110); CREATININE 0.7 mg/dL (0.7-1.3); GLOMERULAR FILTRATION RATE > 60; GLUCOSE 99 mg/dL (70-100); POTASSIUM 4.1 mEq/L (3.5-5.2); SODIUM 137 mEq/L (134-144)
[2016-12-05 11:39] LABS: POTASSIUM 4.3 mEq/L (3.5-5.2)
--- NOTE | 2016-12-05 12:02 | PDINTPN ---
Tax Attorney Progress Note Assessment/Plan: Assessment/plan: 31 M with hx polysubstance abuse admitted after cardiac arrest with cocaine and opiates on tox screen. Family also mentioned "spice" (synthetic THC). Course complicated by AMI requiring stent with revision and intermittent agitation. Self-extubated evening of 12/03, but re-intubated AM 12/04 for return to laborer [facility] wher stent was found to be patent. # CAD/AMI- s/p stent currently treated with Coreg, ASA, Effient. Currently stable off pressors and IABP dc'd # Respiratory failure with hypoxia- intubated yesterday mostly for airway protection though RN reports copious secretions. Remove paralytics and wean sedation as tolerated after sheaths pulled today. Hope to extubate today or tomorrow. # Altered MS- may be related to wd from ingestion. Added precedex today and wean down propofol and fentanyl. Not clear if "spice" is a factor at the moment # Fever- bcx from 12/03 NTD. Check UA. Small puncture wound at coccyx- non erythematous but some drainage. # DVT prophylaxis- SCDs in place. Objective: Vital Signs Temp Pulse Resp BP Pulse Ox 38.1 C 136 H 19 148/80 H 97 12/05/16 07:00 12/05/16 08:00 12/05/16 08:00 12/05/16 08:00 12/05/16 08:00 Microbiology 12/04/16 17:45 - Final Unspecified Laboratory Results 12/05/16 11:00 12/05/16 11:00 12/04/16 12/05/16 12/06/16 05:59 05:59 05:59 Intake Total 1997 2761 Output Total 3 0680 Balance -627 -88 PT 22.0 SEC (12.0-15.0) H 11/30/16 20:05 INR 1.91 (0.83-1.16) H 11/30/16 20:05 - Time Spent With Patient Time Spent With Patient: critical care time 45 minutes from [id number] Physical Exam - Physical Exam General Appearance: no apparent distress, other (sedated, paralyzed on vent) EENT: PERRL/EOMI Neck: supple Respiratory: rhonchi, No accessory muscle use Cardiac/Chest: normal peripheral pulses, regular rate, rhythm, No edema Abdomen: non-tender, soft, No normal bowel sounds (hypoactive), No organomegaly Back: Other (tiny puncture wound at coccyx with minimal drainage, nonerythematous) Skin: normal color, warm/dry, No rash Lymphatic: no adenopathy Extremities: No pedal edema Neuro/Psych: No motor weakness ICD10 Worksheet Patient Problems: Problems Problem Status Onset STEMI (ST elevation myocardial infarction) Acute Abscess of axilla Active Fever Active Obesity Active Renal failure syndrome Active
--- NOTE | 2016-12-05 13:31 | PDCARPN ---
Cardiology Progress Note Assessment/Plan: Anterior ST Segment Elevation Myocardial Infarction- s/p PCI of thrombotic occlusion of the proximal LAD in the early hours of 11/30. Returned to cardiac labor economist approximately 12 hours later secondary to recurrent chest discomfort. Found to have subacute stent thrombosis treated with catheter-based thrombectomy and additional PCI/stenting. CPK peaked at 8000. Self-extubated p.m. of 12/03. Reported chest pain yesterday a.m. in conjunction with HR up to 140 to 150 bpm (sinus tachycardia) and borderline BP in the 90s systolic. 12-lead ECG suggested slight worsening of precordial ST segment elevation. Echo continued to show LAD territory akinesis with hypercontractile function in other territories. No evidence of free wall rupture or acute VSD. Overall clinical picture consistent with cardiogenic shock and worrisome for repeat stent thrombosis. Was taken back to cardiac labor economist yesterday where angiography revealed that stented segment of the LAD was patent and that there wer no new coronary issues. Right heart hemodynamics revealed mild to moderate pulmonary hypertension with PA systolic pressure of 45 to 50 mmHg elevated PCWP and LVEDP at 34 mmHg. Had high cardiac output at over 9 L/min. Right heart O2 saturation run negative for evidence of intracardiac shunt. Coronary Artery Disease- PCI procedures as above for proximal LAD occlusion. No other flow-limiting stenoses in other coronary territories. > Needs DAPT with ASA and Effient for 12 months. > Secondary prevention- on statin therapy. Ischemic Cardiomyopathy- LV wall motion notable for akinesis of LAD territory. Suspect he has now completed a transmural anterolateral infarction. LVEF in labor economist yesterday appeared to be at least 45% but this is predicated on hyperdynamic contractility of the non-infarcted wall segments. Expect that his chronic LVEF will be much lower. > Initiation of standard has been limited by low BP and concern regarding unopposed alpha stimulation with beta lynette in setting of recent cocaine use. Has now received his first 2 doses of carvedilol. Persistent Tachycardia- not explained by LV function status or right heart cath findings. There is a question of withdrawal. Initial tox screen positive for THC and cocaine. > Continue supportive therapy. 12/05/16 12:33 Reviewed/Discussed With: family Objective: Vital Signs (8 Hrs) Temp Pulse Resp BP Pulse Ox 12/05/16 12:00 37.7 C 107 H 19 86/51 L 100 12/05/16 11:00 105 H 18 96/60 L 100 12/05/16 10:00 104 H 18 83/54 L 98 12/05/16 09:00 115 H 18 93/60 L 97 12/05/16 08:00 136 H 19 148/80 H 97 12/05/16 07:00 38.1 C 145 H 21 H 122/78 H 96 12/05/16 06:00 37.3 C 126 H 18 102/67 100 12/05/16 05:00 125 H 18 98/68 L 99 12/05/16 04:55 128 H 18 97 Intake/Output (24 Hrs) 12/04/16 12/05/16 12/06/16 05:59 05:59 05:59 Intake Total 1997 2762 Output Total 2626 2850 Balance -627 -88 Intake: IV Intake (ml) 1122 2290 IV Infused (ml) 876 472 DOBUTamine/DEXTROSE 250 111 ml @ Titrate IV CONT URIEL Rx#:[id number] Dexmedetomidine HCl 400 618 mcg In Ns 100 ml @ Per Protocol IV CONT URIEL Rx#: [id number] Heparin/Dextrose 500 ml @ 78 Per Protocol IV CONT URIEL Rx#:[id number] Propofol/Emulsion 100 ml 162 @ Per Protocol IV CONT URIEL Rx#:[id number] Vecuronium Blairs 50 mg 88 In D5w 50 ml @ As Directed IV CONT URIEL Rx#: [id number] fentaNYL/NACL 100 ml @ 69 222 Per Protocol IV CONT URIEL Rx#:[id number] Output: Urine (ml) 2625 2650 Catheter 2625 2650 OG Drainage (ml) 200 Large Bore (>12 Telugu) 200 Non-weighted Oral Stomach [place] 16 [place] Result Diagrams: 12/05/16 11:00 12/05/16 11:00 Cardiac Labs: Cardiac Lab Results (72 Hrs) 12/05/16 12/04/16 12/04/16 11:00 17:45 10:00 CK-MB (CK-2) Fraction 5.41 H 4.65 H Troponin I 8.610 H 13.500 H 12/04/16 09:00 CK-MB (CK-2) Fraction 5.71 H Troponin I - Physical Exam Constitutional: other (Intubated and sedated) Eyes: anicteric sclera Ears, Nose, Mouth, Throat: moist mucous membranes Cardiovascular: other (tachycardic without murmur or gallop) Respiratory: clear to auscultate bilat (anterior) Gastrointestinal: normoactive bowel sounds, no masses Skin: no edema Neurologic: other (Intubated and sedated) ICD10 Worksheet Patient Problems: Problems Problem Status Onset STEMI (ST elevation myocardial infarction) Acute Abscess of axilla Active Fever Active Obesity Active Renal failure syndrome Active
--- NOTE | 2016-12-05 16:46 | GCON ---
[f rep st] CONSULTATION CARDIOVASCULAR CONSULTATION CHIEF COMPLAINT: Acute myocardial infarction. HISTORY OF PRESENT ILLNESS: I have been asked by the family to do A cardiovascular consultation on this patient for yet another opinion on his care, and for recommendations as to his management. I have examined the patient carefully and over 75 pages of hospital records have been reviewed. I reviewed every angiogram the patient has had, his echocardiographic studies, his electrocardiogram s, his chest x-rays. Intravascular ultrasound imaging has been reviewed as well. He is a 31-year-old gentleman who had been having some discomfort in his chest and had been getting increasingly short of breath. He was admitted to the hospital on 11/30/2016 with an acute anterior myocardial infarction with 100% total occlusion of the left anterior descending artery. His pain granger d been going on for over an hour and a half at that point in time. He told the emergency room staff , his family has told me that he had not been using drugs and they should check him for drugs. He a lso has had probation issues. It is reported that his girlfriend said that he was faking it and the re was nothing wrong with him. The patient was treated for an acute myocardial infarction by nikolai Childers. The patient received a PTCA for his LAD thrombotic total occlusion. There wa s thrombectomy done and angioplasty as well. The patient had early stent reocclusion and was jordan t back to the orthodontic lab technician where he had repeat stenting. The patient's troponins increased over time as well as CPK. His initial cardiac enzyme was negative. He has had a hospital course complicated wi th tachycardia, intermittent hypotension. He has been intubated. He has extubated himself and then been reintubated for another coronary angiogram that was done yesterday, and the stent is patent an d the left ventricular function appears to be improving. PAST HISTORY: Documented in the chart and I am not repeating it all here. REVIEW OF SYSTEMS: Documented in the chart and I am not repeating it all here. PHYSICAL EXAM: VITAL SIGNS: Today shows a heart rate of 110. CARDIOVASCULAR: He has an S1-S2 as well as a soft systolic murmur. No diastolic murmur. No S3, S4. No rub. PULMONARY: Reveals decr eased breath sounds at the bases. He is intubated and not talking. ABDOMEN: Soft, nontender. [place] el sounds are present. EXTREMITIES: No significant edema. LABORATORY DATA: His labs are attached and have been reviewed extensively as well as all the other reports he has had. ASSESSMENT AND PLAN: 1. Acute myocardial infarction. 2. History of cocaine abuse. 3. Ventricular fibrillation. 4. Status post cardiopulmonary resuscitation. 5. Smoking history. 6. Family history of premature coronary disease. The patient has a marked family history of premature coronary disease. According to the family, he has not been taking that good care of himself. He has been using drugs in the past. At this point, he has had an acute myocardial infarction complicated with ventricular fibrillation that was cardio verted out of with CPR by the emergency bacteriologist medical. He had in-stent occlusion and has had that repaired and then a followup evaluation because of his tachycardia, and other problems on repea t angiogram yesterday showed that the arteries are now patent. I think it was brilliant to take him back to the lab the 3rd time to make sure that he was patent at that point. His ejection fraction seems to be improving. He is going to get very aggressive medical therapy for acute myocardial infarction. That will inclu de beta blockers, multiple antiplatelet medications, statins, SANKET inhibitors. I am hopeful that he can recover much if not all of his cardiovascular left ventricular function. I have now spent over an hour talking to more than 8 family members about his case. I have answered all their questions. If we began at the beginning, I explained to them about his acute myocardial infarction. I thought that his risk of dying when he came into the hospital the way he presented wa s at least 20%, and when he was in the field it was even higher than that. I think that he still granger s perhaps a 10% chance of dying in the hospital so I wanted them to know that he is at significant r isk of having troubles and they understand that. I told them that given all that I still believe he can leave the hospital and do quite well. I told him the plan routinely is there may be an echocardiogram done sooner, but at 3 and 6 months w ould check his ejection fraction and see how he is improving and that he can get significant improve ment. He can have a very significant functional life, be very active and time will tell how that pl ays out. They have a grave concern about his drug use and his choice of the girlfriend and feel like she has been harmful to him, has injured him and they are talking to the police and other people about noeli ng her away, and then also they are going to talk to an assistant city attorney about maybe getting him into rehab somehow and get him some help with his drug issue. They are very on board with that. I think they are very supportive and loving. I totally agree with them that taking care of his drug problem is a huge issue and they recommended that he leave the state so he is not hanging out with his little friends and I told them I totally supported that and think it would make sense to do that on the day of discharge from the hospital. That is unless he has to be discharged to a rehab center where he will need more help and then he co uld go to rehab for drug issues right after that. They had many, many questions. We went over the pathophysiology of his events. We went over his pr ognosis. We went over long-term medications. We went over them encouraging him that he is responsi ble for his drug issues and cannot blame any other member of his friends. They obviously have his v candida best interest in heart and very loving and caring, all of them. I told them that I think that the care he is getting is superb; that I think Dr. Childers is a super b doctor to continue taking care of him, and that there is nobody better. I told them that I do not believe [facility] needs [facility] at this [facility], and I believe personally that he would get better care here and if he were my brother, I would keep him here at this time. I also s aid that we have a great commitment and connection to the [facility] and if he developed any issues that we could not handle we would be the 1st wants to tell him he should get to the [facility] and w e can get him there very quickly. I also said that if they just feel better with him being at a big [facility], we can facilitate transfer and get into the process any time they desire that, and juju t there will be no hard feelings and we will be very happy to take care of him after he returns from the [facility]. I think all their questions have been answered. We went over as well this massive family history of premature coronary disease and smoking, and some family members have real concerns about smoking an d weight and we have gone over those with him extensively. They asked me if I would see him every day and I said that I would be glad to do that while I am on this week and be happy to help take care of him after he leaves the hospital. Dr. Childers will be his ongoing supervisor plastering during this hospitalization and I totally support that. I also told them t hat you know there is a chance he may need another coronary angiogram and if he does we will just do it and keep moving through this. Hopefully that is not going to be the case but I do not want them to think that we are out of the miranda and everything is cleared up at this point and time. /[id number]/MODL
[2016-12-05] MEDS: CARVEDILOL 3.125 MG TAB TUBE SCH (17:06)
[2016-12-05] MEDS ORDERED: ACETAMINOPHEN 650 MG SUPP PR PRN (20:15)
[2016-12-05 20:37] LABS: POTASSIUM 3.7 mEq/L (3.5-5.2)
[2016-12-06] MEDS: PHENYLEPHRINE HCL 50 MG in D5W 250 ML IV SCH (00:27)
[2016-12-06 00:51] LABS: POTASSIUM 3.8 mEq/L (3.5-5.2)
[2016-12-06] MEDS ORDERED: POTASSIUM Cl (KCl) 50 ML IV ONE ×2 (01:04→06:37)
[2016-12-06 06:18] LABS: POTASSIUM 3.7 mEq/L (3.5-5.2)
[2016-12-06] MEDS: CARVEDILOL 3.125 MG TAB TUBE SCH ×2 (08:00→18:10)
[2016-12-06] MEDS ORDERED: PRASUGREL HCL 10 MG TAB TUBE SCH (09:00)
[2016-12-06] MEDS ORDERED: ATORVASTATIN CALCIUM 40 MG TAB TUBE SCH (09:00)
[2016-12-06] MEDS: FAMOTIDINE 20 MG TAB PO SCH ×2 (10:00→20:20)
[2016-12-06] MEDS ORDERED: ASPIRIN EC 325 MG TAB PO SCH ×2 (10:30→12:57)
[2016-12-06] MEDS: CHLORHEXIDINE GLUCONATE 15 ML UDL PO SCH ×2 (11:18→22:08)
[2016-12-06] MEDS: ACETAMINOPHEN 325 MG TAB PO PRN (11:20)
[2016-12-06] MEDS: ERTAPENEM 1 GM in NS 100 ML IV SCH (11:29)
--- NOTE | 2016-12-06 12:49 | PDCARPN ---
Cardiology Progress Note Assessment/Plan: Anterior ST Segment Elevation Myocardial Infarction- s/p PCI of thrombotic occlusion of the proximal LAD in the early hours of 11/30. Returned to cardiac dental laboratory assistant approximately 12 hours later secondary to recurrent chest discomfort. Found to have subacute stent thrombosis treated with catheter-based thrombectomy and additional PCI/stenting. CPK peaked at 8000. Self-extubated p.m. of 12/03. Reported chest pain the following a.m. in conjunction with HR up to 140 to 150 bpm (sinus tachycardia) and borderline BP in the 90s systolic. 12-lead ECG suggested slight worsening of precordial ST segment elevation. Echo continued to show LAD territory akinesis with hypercontractile function in other territories. No evidence of free wall rupture or acute VSD. Overall clinical picture consistent with cardiogenic shock and worrisome for repeat stent thrombosis. Was taken back to cardiac dental laboratory assistant 12/04 where angiography revealed that stented segment of the LAD was patent and that there were no new coronary issues. Right heart hemodynamics revealed mild to moderate pulmonary hypertension with PA systolic pressure of 45 to 50 mmHg elevated PCWP and LVEDP at 34 mmHg. Had high cardiac output at over 9 L/min. Right heart O2 saturation run negative for evidence of intracardiac shunt. Coronary Artery Disease- PCI procedures as above for proximal LAD occlusion. No other flow-limiting stenoses in other coronary territories. > Needs DAPT with ASA and Effient for 12 months. > Secondary prevention- on statin therapy. Ischemic Cardiomyopathy- LV wall motion notable for akinesis of LAD territory. Suspect he has now completed a transmural anterolateral infarction. LVEF in dental laboratory assistant yesterday appeared to be at least 45% but this is predicated on hyperdynamic contractility of the non-infarcted wall segments. Expect that his chronic LVEF will be much lower. > Initiation of standard post-OH/cardiomyopathy meds was delayed by low BP and concern regarding unopposed alpha stimulation with beta lynette in setting of recent cocaine use. > Now on low-dose of carvedilol. > SANKET-I and aldosterone antagonist when BP allows. > Will need 3 to 6 months of systemic anticoagulation due to risk of LV mural thrombus. Persistent Tachycardia- not explained by LV function status or right heart cath findings. There is a question of withdrawal. Initial tox screen positive for THC and cocaine. > Continue supportive therapy. 12/06/16 12:44 Reviewed/Discussed With: family, hospitalist, multidisciplinary team Objective: Vital Signs (8 Hrs) Temp Pulse Resp BP Pulse Ox 12/06/16 12:00 37.5 C 120 H 21 H 103/63 100 12/06/16 11:00 116 H 26 H 90/50 L 99 12/06/16 10:00 121 H 19 96/59 L 99 12/06/16 09:00 120 H 25 H 102/69 99 12/06/16 08:00 128 H 25 H 100/66 98 12/06/16 07:00 37.3 C 116 H 24 H 97/64 L 97 12/06/16 06:00 120 H 23 H 104/83 H 98 12/06/16 05:00 116 H 24 H 87/59 L 98 Intake/Output (24 Hrs) 12/05/16 12/06/16 12/07/16 05:59 05:59 05:59 Intake Total 2762 3473 Output Total 2850 2000 Balance -88 1473 Intake: IV Intake (ml) 2290 1248 IV Infused (ml) 472 2225 Dexmedetomidine HCl 400 87 mcg In Ns 100 ml @ Per Protocol IV CONT URIEL Rx#: [id number] Ns 1,000 ml @ 75 mls/hr 1696 IV AD URIEL Rx#:[id number] Phenylephrine HCl 50 mg 275 In D5w 250 ml @ Per Protocol IV CONT URIEL Rx#: [id number] Propofol/Emulsion 100 ml 162 86 @ Per Protocol IV CONT URIEL Rx#:[id number] Vecuronium [place] 50 mg 88 In D5w 50 ml @ As Directed IV CONT URIEL Rx#: [id number] fentaNYL/NACL 100 ml @ 222 Per Protocol IV CONT URIEL Rx#:[id number] fentaNYL/NACL 100 ml @ 81 Per Protocol IV CONT URIEL Rx#:[id number] Output: Urine (ml) 2650 1600 Catheter 2650 1600 OG Drainage (ml) 200 400 Large Bore (>12 [place]) 200 400 Non-weighted Oral Stomach [place] Sump 16 [place] Other: Number of Stools Catheter 1 Result Diagrams: 12/05/16 11:00 12/06/16 05:37 Cardiac Labs: Cardiac Lab Results (72 Hrs) 12/05/16 12/04/16 12/04/16 11:00 17:45 10:00 CK-MB (CK-2) Fraction 5.41 H 4.65 H Troponin I 8.610 H 13.500 H 12/04/16 09:00 CK-MB (CK-2) Fraction 5.71 H Troponin I - Physical Exam Constitutional: no apparent distress Eyes: anicteric sclera Ears, Nose, Mouth, Throat: moist mucous membranes (tachycardia; no murmur) Respiratory: other (rhonci present) Gastrointestinal: normoactive bowel sounds, no tenderness, no masses Skin: no edema Neurologic: other (still groggy from sedation) Psychiatric: not anxious ICD10 Worksheet Patient Problems: Problems Problem Status Onset STEMI (ST elevation myocardial infarction) Acute Abscess of axilla Active Fever Active Obesity Active Renal failure syndrome Active
[2016-12-06] MEDS ORDERED: HEPARIN 10,000 UNIT/10 ML MDV IVP ONE (12:53)
[2016-12-06] MEDS ORDERED: HEPARIN 10,000 UNIT/10 ML MDV IVP PRN (12:53)
[2016-12-06 13:08] LABS: POTASSIUM 3.2 mEq/L (3.5-5.2)
[2016-12-06] MEDS: POTASSIUM CL 10 MEQ TAB PO PRN ×3 (13:32→13:34)
[2016-12-06 13:51] LABS: % IMMATURE GRANULYOCYTES 0.6 % (0.0-1.1); ABSOLUTE IMMATURE GRANULOCYTES 0.09 10^3/uL (0.00-0.10); ADD DIFF? NO; ADD MORPH? NO; ADD SCAN? NO; ATYPICAL LYMPHOCYTE FLAG 80 (0-99); FRAGMENT RBC FLAG 0 (0-99); HEMATOCRIT 29.4 % (40.0-51.0); HEMOGLOBIN 10.4 g/dL (13.7-17.5); LEFT SHIFT FLG 10 (0-99); LIPEMIA HEMOLYSIS FLAG 90 (0-99); MEAN CELL HEMOGLOBIN 31.4 pg (27.9-34.1); MEAN CELL HEMOGLOBIN CONCENTR. 35.4 g/dL (32.4-36.7); MEAN CELL VOLUME 88.8 fL (81.5-99.8); MEAN PLATELET VOLUME 10.2 fL (8.7-11.7); PLATELET CLUMPS FLAG 30 (0-99); PLATELET COUNT 331 10^3/uL (150-400); RED BLOOD CELL COUNT 3.31 10^6/uL (4.40-6.38); RED CELL DISTRIBUTION WIDTH 12.6 % (11.5-15.2)
[2016-12-06] MEDS: FAMOTIDINE 20 MG/NACL 50 ML IV SCH (14:13)
[2016-12-06] MEDS: ASPIRIN RECTAL 300 MG SUPP PR SCH (14:13)
[2016-12-06 14:23] LABS: INR 1.23 (0.83-1.16); PROTIME(PATIENT) 15.5 SEC (12.0-15.0)
[2016-12-06 14:24] LABS: APTT 25.9 SEC (23.0-38.0)
--- NOTE | 2016-12-06 15:22 | PDINTPN ---
Chemical Weigher Progress Note Assessment/Plan: Assessment/plan: 31 M with hx polysubstance abuse admitted after cardiac arrest with cocaine and opiates on tox screen. Family also mentioned "spice" (synthetic THC). Course complicated by AMI requiring stent with revision and intermittent agitation. Self-extubated evening of 12/03, but re-intubated AM 12/04 for return to chemical laboratory chief wher stent was found to be patent. # CAD/AMI- s/p stent with redo 2/2 stenosis; currently treated with Coreg, ASA, Effient. Currently stable off pressors and IABP dc'd. Systemic anticoagulation recommended by cards to avoid mural thrombus with EF 40', but per protocol, Xa level already supratherapeutic so holding heparin for now. Recheck AM. Warfarin also started. # Respiratory failure with hypoxia- Extubated. Continue pulmonary toilet. # Altered MS- may be related to wd from ingestion versus toxic encephalopathy 11/17 arrest and medications. Continued observation for now. # Fever- bcx from 12/03 NTD. Small puncture wound at coccyx- non erythematous but some drainage. # DVT prophylaxis- SCDs in place. 12/06/16 15:19 Subjective: Extubated last PM without difficulty. Remains intermittently confused, but eating OK and denies cp, sob Objective: Vital Signs Temp Pulse Resp BP Pulse Ox 37.4 C 115 H 15 98/53 L 98 12/06/16 13:00 12/06/16 13:00 12/06/16 13:00 12/06/16 13:00 12/06/16 13:00 Microbiology 12/04/16 17:45 - Final Unspecified Sputum Culture - Final Laboratory Results 12/06/16 13:43 12/06/16 12:00 12/05/16 12/06/16 12/07/16 05:59 05:59 05:59 Intake Total 2762 4543 Output Total 2850 2000 Balance -88 1473 PT 15.5 SEC (12.0-15.0) H 12/06/16 13:43 INR 1.23 (0.83-1.16) H 12/06/16 13:43 Physical Exam - Physical Exam General Appearance: alert, other (confused but answered questions appropriately) EENT: PERRL/EOMI, normal ENT inspection Neck: full range of motion, supple Respiratory: lungs clear, normal breath sounds, No respiratory distress Cardiac/Chest: normal peripheral pulses, regular rate, rhythm, No edema Abdomen: non-tender, soft, No distended Skin: normal color, warm/dry, No rash Lymphatic: no adenopathy Extremities: non-tender, No pedal edema Neuro/Psych: alert, other (somnolent, intermittent confusion. Non-decisional) ICD10 Worksheet Patient Problems: Problems Problem Status Onset STEMI (ST elevation myocardial infarction) Acute Abscess of axilla Active Fever Active Obesity Active Renal failure syndrome Active
[2016-12-06] MEDS: WARFARIN SODIUM 5 MG TAB PO SCH (17:01)
[2016-12-06] MEDS: HYDROCODONE/APAP 5/325 TAB PO PRN (20:19)
[2016-12-06] MEDS: ALPRAZolam 0.25 MG TAB PO PRN (20:20)
[2016-12-06 21:08] LABS: POTASSIUM 3.3 mEq/L (3.5-5.2)
[2016-12-06] MEDS: POTASSIUM Cl (KCl) 50 ML IV SCH ×2 (22:50→23:37)
[2016-12-06] MEDS: HEPARIN/DEXTROSE 500 ML IV SCH (22:58)
[2016-12-07] MEDS: POTASSIUM Cl (KCl) 50 ML IV SCH ×5 (00:09→15:42)
[2016-12-07] MEDS: PHENYLEPHRINE HCL 50 MG in D5W 250 ML IV SCH ×2 (00:10→20:59)
[2016-12-07 04:17] LABS: MAGNESIUM 1.9 mg/dL (1.6-2.3); POTASSIUM 3.2 mEq/L (3.5-5.2)
[2016-12-07 07:02] LABS: INR 1.26 (0.83-1.16); PROTIME(PATIENT) 15.8 SEC (12.0-15.0)
[2016-12-07] MEDS: CARVEDILOL 6.25 MG TAB PO SCH ×2 (08:32→18:22)
[2016-12-07] MEDS: CHLORHEXIDINE GLUCONATE 15 ML UDL PO SCH ×2 (08:32→22:24)
[2016-12-07] MEDS: ASPIRIN EC 81 MG TAB PO SCH (08:32)
[2016-12-07] MEDS: ERTAPENEM 1 GM in NS 100 ML IV SCH (08:32)
[2016-12-07] MEDS: ATORVASTATIN CALCIUM 40 MG TAB PO SCH (08:32)
[2016-12-07] MEDS: PRASUGREL HCL 10 MG TAB PO SCH (08:33)
[2016-12-07] MEDS: FAMOTIDINE 20 MG TAB PO SCH ×2 (08:33→20:59)
[2016-12-07] MEDS ORDERED: ASPIRIN EC 325 MG TAB PO SCH (09:00)
[2016-12-07 13:04] LABS: POTASSIUM 3.2 mEq/L (3.5-5.2)
[2016-12-07] MEDS: POTASSIUM CL 10 MEQ TAB PO PRN (14:51)
--- NOTE | 2016-12-07 16:12 | PDINTPN ---
Propeller Layout Worker Progress Note Assessment/Plan: Assessment/plan: 31 M with hx polysubstance abuse admitted after cardiac arrest with cocaine and opiates on tox screen. Family also mentioned "spice" (synthetic THC). Course complicated by AMI requiring stent with revision and intermittent agitation. Self-extubated evening of 12/03, but re-intubated AM 12/04 for return to general labor wher stent was found to be patent. # CAD/AMI- s/p stent with redo 2/2 stenosis; currently treated with Coreg, ASA, Effient. # Hypotension- he has required intermittent pressors and remains on low dose gracie at this point. Check NICOM for fluid responsiveness. No evidenceof adrenal insufficiency, septic shock, or cardiogenic shock. # Respiratory failure with hypoxia- Extubated. Continue pulmonary toilet. # Altered MS- may be related to wd from ingestion versus toxic encephalopathy 11/17 arrest and medications. Improving daily # Fever- bcx from 12/03 NTD. Small puncture wound at coccyx- appears closed at this point. # DVT prophylaxis- heparin started 12/06/16 15:19 12/07/16 16:10 Subjective: feels OK. Remains on low dose gracie. Coreg started and dose increased per cards. Objective: Vital Signs Temp Pulse Resp BP Pulse Ox 37.3 C 100 27 H 88/75 L 98 12/07/16 14:00 12/07/16 14:00 12/07/16 14:00 12/07/16 14:00 12/07/16 14:00 Microbiology 12/05/16 20:40 Blood Panel (PCR) - Final Blood Staph Coagulase Negative 12/04/16 17:45 - Final Unspecified Sputum Culture - Final Laboratory Results 12/06/16 13:43 12/07/16 12:00 12/06/16 12/07/16 12/08/16 05:59 05:59 05:59 Intake Total 3473 4880 Output Total 2000 500 Balance 1473 4380 PT 15.8 SEC (12.0-15.0) H 12/07/16 04:22 INR 1.26 (0.83-1.16) H 12/07/16 04:22 Physical Exam - Physical Exam General Appearance: alert, no apparent distress EENT: PERRL/EOMI Neck: full range of motion, supple Respiratory: chest non-tender, lungs clear, normal breath sounds, No respiratory distress Cardiac/Chest: normal peripheral pulses, regular rate, rhythm, No edema Abdomen: normal bowel sounds, non-tender, soft Skin: normal color, warm/dry, No rash Lymphatic: no adenopathy Extremities: No pedal edema Neuro/Psych: alert, normal mood/affect ICD10 Worksheet Patient Problems: Problems Problem Status Onset STEMI (ST elevation myocardial infarction) Acute Abscess of axilla Active Fever Active Obesity Active Renal failure syndrome Active
[2016-12-07] MEDS: WARFARIN SODIUM 5 MG TAB PO SCH (16:41)
[2016-12-07 18:46] LABS: POTASSIUM 3.6 mEq/L (3.5-5.2)
[2016-12-07] MEDS ORDERED: PROTOCOL POTASSIUM 1 DOSE MISC PRN (20:31)
[2016-12-07] MEDS ORDERED: POTASSIUM CL 10 MEQ TAB PO ONE (20:33)
[2016-12-07] MEDS: ACETAMINOPHEN 325 MG TAB PO PRN (20:59)
[2016-12-07] MEDS: ALPRAZolam 0.25 MG TAB PO PRN (20:59)
[2016-12-08] MEDS: HYDROCODONE/APAP 5/325 TAB PO PRN ×2 (01:20→11:15)
[2016-12-08] MEDS: ALPRAZolam 0.25 MG TAB PO PRN ×3 (03:30→17:43)
[2016-12-08 05:34] LABS: HEMATOCRIT 29.6 % (40.0-51.0); LIPEMIA HEMOLYSIS FLAG 90 (0-99); MEAN CELL HEMOGLOBIN 30.9 pg (27.9-34.1); MEAN CELL HEMOGLOBIN CONCENTR. 33.8 g/dL (32.4-36.7); MEAN CELL VOLUME 91.4 fL (81.5-99.8); PLATELET COUNT 419 10^3/uL (150-400); RED BLOOD CELL COUNT 3.24 10^6/uL (4.40-6.38); RED CELL DISTRIBUTION WIDTH 13.2 % (11.5-15.2)
[2016-12-08 05:46] LABS: INR 2.08 (0.83-1.16); PROTIME(PATIENT) 23.5 SEC (12.0-15.0)
[2016-12-08 05:59] LABS: ALBUMIN 2.6 g/dL (3.5-5.0); ANION GAP 7 mEq/L (8-16); CALCIUM 8.1 mg/dL (8.5-10.4); CARBON DIOXIDE 23 mEq/l (22-31); CHLORIDE 114 mEq/L (97-110); CREATININE 0.7 mg/dL (0.7-1.3); GLOMERULAR FILTRATION RATE > 60; GLUCOSE 105 mg/dL (70-100); POTASSIUM 3.6 mEq/L (3.5-5.2); SODIUM 144 mEq/L (134-144)
[2016-12-08] MEDS: ERTAPENEM 1 GM in NS 100 ML IV SCH (08:44)
[2016-12-08] MEDS: FAMOTIDINE 20 MG TAB PO SCH ×2 (08:45→20:01)
[2016-12-08] MEDS: ATORVASTATIN CALCIUM 40 MG TAB PO SCH (08:45)
[2016-12-08] MEDS: CARVEDILOL 6.25 MG TAB PO SCH ×2 (08:45→17:43)
[2016-12-08] MEDS: PRASUGREL HCL 10 MG TAB PO SCH (08:45)
[2016-12-08] MEDS: ASPIRIN EC 81 MG TAB PO SCH (08:45)
[2016-12-08] MEDS: PHENYLEPHRINE HCL 50 MG in D5W 250 ML IV SCH ×2 (08:56→17:57)
[2016-12-08] MEDS: HEPARIN/DEXTROSE 500 ML IV SCH (08:57)
[2016-12-08] MEDS: CHLORHEXIDINE GLUCONATE 15 ML UDL PO SCH ×2 (09:13→20:01)
[2016-12-08] MEDS ORDERED: POTASSIUM Cl (KCl) 50 ML IV SCH (10:18)
[2016-12-08] MEDS: MIDODRINE HCL 5 MG TAB PO SCH ×2 (11:15→17:43)
[2016-12-08] MEDS ORDERED: POTASSIUM CL 20 MEQ TAB PO ONE (11:30)
--- NOTE | 2016-12-08 11:45 | PDCARPN ---
Cardiology Progress Note Assessment/Plan: Anterior ST Segment Elevation Myocardial Infarction- s/p PCI of thrombotic occlusion of the proximal LAD in the early hours of 11/30. Returned to cardiac entry level lab technician approximately 12 hours later secondary to recurrent chest discomfort. Found to have subacute stent thrombosis treated with catheter-based thrombectomy and additional PCI/stenting. CPK peaked at 8000. Self-extubated p.m. of 12/03. Reported chest pain the following a.m. in conjunction with HR up to 140 to 150 bpm (sinus tachycardia) and borderline BP in the 90s systolic. 12-lead ECG suggested slight worsening of precordial ST segment elevation. Echo continued to show LAD territory akinesis with hypercontractile function in other territories. No evidence of free wall rupture or acute VSD. Overall clinical picture consistent with cardiogenic shock and worrisome for repeat stent thrombosis. Was taken back to cardiac entry level lab technician 12/04 where angiography revealed that stented segment of the LAD was patent and that there were no new coronary issues. Right heart hemodynamics revealed mild to moderate pulmonary hypertension with PA systolic pressure of 45 to 50 mmHg elevated PCWP and LVEDP at 34 mmHg. Had high cardiac output at over 9 L/min. Right heart O2 saturation run negative for evidence of intracardiac shunt. > No recurrent angina > MD presentation at age 31 and occurrence of subacute stent thrombosis raise questions about an underlying hypercoaguable state. Will check for Factor V Leiden mutation. Hematology consult as an outpatient prior to completing his course of warfarin. Coronary Artery Disease- PCI procedures as above for proximal LAD occlusion. No other flow-limiting stenoses in other coronary territories. > Needs DAPT with ASA and Effient for 12 months. > Secondary prevention- now on statin therapy. Ischemic Cardiomyopathy- LV wall motion notable for akinesis of LAD territory. Suspect he has now completed a transmural anterolateral infarction. LVEF in entry level lab technician 12/04 appeared to be at least 45% but this is predicated on hyperdynamic contractility of the non-infarcted wall segments. Expect that his chronic LVEF will be much lower. > Initiation of standard post-MD/cardiomyopathy meds was delayed by low BP and concern regarding unopposed alpha stimulation with beta lynette in setting of recent cocaine use. > Now on carvedilol. > SANKET-I and aldosterone antagonist when BP allows. > Will need 3 to 6 months of systemic anticoagulation due to risk of LV mural thrombus. > INR 2.08 today; will D/C IV heparin. Persistent Tachycardia- not explained by LV function status or right heart cath findings. There is a question of withdrawal. Initial tox screen positive for THC and cocaine. > Improving on carvedilol. Hypotension- continues on IV phenylephrine. Did not respond to NICOM fluid challenge yesterday. > Start SLOW wean of phenylephrine. 12/08/16 11:46 Reviewed/Discussed With: family Objective: Vital Signs (8 Hrs) Temp Pulse Resp BP Pulse Ox 12/08/16 11:00 91 18 101/69 93 12/08/16 10:00 36.6 C 93 22 H 90/62 L 96 12/08/16 09:36 95 12/08/16 08:00 78 18 105/73 95 12/08/16 06:00 82 24 H 93/64 L 93 12/08/16 05:00 82 26 H 96/69 L 91 L 12/08/16 04:00 37.9 C 96 24 H 95/59 L 91 L Intake/Output (24 Hrs) 12/07/16 12/08/16 12/09/16 05:59 05:59 05:59 Intake Total 4880 5675 Output Total 500 1500 Balance 4380 4175 Intake: Oral (ml) 2300 1900 IV Intake (ml) 450 1000 IV Infused (ml) 2130 2775 Dexmedetomidine HCl 400 0 mcg In Ns 100 ml @ Per Protocol IV CONT URIEL Rx#: [id number] Heparin/Dextrose 500 ml @ 136 450 Per Protocol IV CONT URIEL Rx#:[id number] Heparin/Dextrose 500 ml @ 365 Per Protocol IV CONT URIEL Rx#:[id number] Ns 1,000 ml @ 75 mls/hr 1850 1518 IV AD URIEL Rx#:[id number] Phenylephrine HCl 50 mg 144 442 In D5w 250 ml @ Per Protocol IV CONT URIEL Rx#: [id number] Output: Urine (ml) 500 1500 Incontinence 250 500 Urinal 250 1000 Other: Weight 71.3 kg 74.1 kg Number of Voids Incontinence 4 5 Urinal 1 Number of Stools Incontinence 3 Result Diagrams: 12/08/16 05:20 12/08/16 05:20 Cardiac Labs: Cardiac Lab Results (72 Hrs) 12/05/16 11:00 Troponin I 8.610 H - Physical Exam Constitutional: no apparent distress Eyes: anicteric sclera Ears, Nose, Mouth, Throat: moist mucous membranes Cardiovascular: regular rate and rhythm, no murmurs, no gallops Respiratory: clear to auscultate bilat Gastrointestinal: normoactive bowel sounds, no tenderness, no masses Skin: no rashes, no edema Neurologic: AAOx3 Psychiatric: not anxious ICD10 Worksheet Patient Problems: Problems Problem Status Onset STEMI (ST elevation myocardial infarction) Acute Abscess of axilla Active Fever Active Obesity Active Renal failure syndrome Active
[2016-12-08] MEDS ORDERED: WARFARIN SODIUM 5 MG TAB PO SCH (11:49)
--- NOTE | 2016-12-08 14:53 | PDINTPN ---
Buck Presser Progress Note Assessment/Plan: Assessment/plan: 31 M with hx polysubstance abuse admitted after cardiac arrest with cocaine and opiates on tox screen. Family also mentioned "spice" (synthetic THC). Course complicated by AMI requiring stent with revision and intermittent agitation. Self-extubated evening of 12/03, but re-intubated AM 12/04 for return to cardiac cath lab technologist wher stent was found to be patent. # CAD/AMI- s/p stent with redo 2/2 stenosis; currently treated with Coreg, ASA, Effient. # Hypotension- he has required intermittent pressors and remains on low dose gracie at this point. No evidenceof adrenal insufficiency, septic shock, or cardiogenic shock. Not fluid responsive on NICOM. Started midodrine today and will titrate gracie to MAP >65 per cards today. # Respiratory failure with hypoxia- Extubated. Continue pulmonary toilet. # Altered MS- may be related to wd from ingestion versus toxic encephalopathy 11/17 arrest and medications. Improving daily # Fever- bcx from 12/03 NTD. Small puncture wound at coccyx- appears closed at this point. # DVT prophylaxis- heparin started Subjective: Continues to improve. Some impulsivity still Objective: Vital Signs Temp Pulse Resp BP Pulse Ox 36.6 C 80 23 H 93/60 L 96 12/08/16 10:00 12/08/16 13:00 12/08/16 13:00 12/08/16 13:00 12/08/16 13:00 Microbiology 12/05/16 20:40 Blood Panel (PCR) - Final Blood Staph Coagulase Negative Laboratory Results 12/08/16 05:20 12/08/16 05:20 12/07/16 12/08/16 12/09/16 05:59 05:59 05:59 Intake Total 4880 5675 Output Total 500 1500 Balance 4380 4175 PT 23.5 SEC (12.0-15.0) H 12/08/16 05:20 INR 2.08 (0.83-1.16) H 12/08/16 05:20 Physical Exam - Physical Exam General Appearance: WD/WN, alert, no apparent distress EENT: PERRL/EOMI Neck: full range of motion, supple Respiratory: lungs clear, normal breath sounds, No respiratory distress Cardiac/Chest: normal peripheral pulses, regular rate, rhythm, No edema Abdomen: normal bowel sounds, non-tender, soft Skin: normal color, warm/dry, No rash Lymphatic: no adenopathy Extremities: non-tender, No pedal edema Neuro/Psych: alert, normal mood/affect, oriented x 3 ICD10 Worksheet Patient Problems: Problems Problem Status Onset STEMI (ST elevation myocardial infarction) Acute Abscess of axilla Active Fever Active Obesity Active Renal failure syndrome Active
[2016-12-08] MEDS: WARFARIN SODIUM 3 MG TAB PO SCH (17:43)
[2016-12-08 18:50] LABS: POTASSIUM 3.9 mEq/L (3.5-5.2)
[2016-12-08] MEDS ORDERED: POTASSIUM CL 10 MEQ TAB PO ONE (19:21)
[2016-12-08] MEDS: LORazepam 2 MG/ML INJ IVP PRN (20:01)
[2016-12-09] MEDS: ALPRAZolam 0.25 MG TAB PO PRN ×4 (00:04→20:49)
[2016-12-09] MEDS: CALCIUM CARBONATE 500 MG CHEWABLE TAB PO PRN (00:10)
[2016-12-09 04:34] LABS: MAGNESIUM 1.8 mg/dL (1.6-2.3)
[2016-12-09 04:43] LABS: INR 2.21 (0.83-1.16); PROTIME(PATIENT) 24.7 SEC (12.0-15.0)
[2016-12-09] MEDS ORDERED: MAGNESIUM SULF 1 GM/DEXTROSE 100 ML IV ONE (07:40)
[2016-12-09] MEDS: ASPIRIN EC 81 MG TAB PO SCH (08:20)
[2016-12-09] MEDS: ERTAPENEM 1 GM in NS 100 ML IV SCH (08:20)
[2016-12-09] MEDS: FAMOTIDINE 20 MG TAB PO SCH ×2 (08:20→20:49)
[2016-12-09] MEDS: PRASUGREL HCL 10 MG TAB PO SCH (08:20)
[2016-12-09] MEDS: CARVEDILOL 6.25 MG TAB PO SCH (08:20)
[2016-12-09] MEDS: MIDODRINE HCL 5 MG TAB PO SCH ×3 (08:20→18:53)
[2016-12-09] MEDS: ATORVASTATIN CALCIUM 40 MG TAB PO SCH (08:20)
[2016-12-09] MEDS: CHLORHEXIDINE GLUCONATE 15 ML UDL PO SCH ×2 (08:55→19:39)
[2016-12-09] MEDS ORDERED: CARVEDILOL 6.25 MG TAB PO SCH (10:57)
[2016-12-09] MEDS ORDERED: POLYETHYLENE GLYCOL 3350 17 GM PKT PO PRN (11:04)
[2016-12-09] MEDS ORDERED: MAGNESIUM HYDROXIDE 30 ML UDCUP PO PRN (11:04)
[2016-12-09] MEDS ORDERED: LACTULOSE 20 GM/30 ML UDCUP PO PRN (11:04)
[2016-12-09] MEDS ORDERED: BISACODYL 10 MG SUPP PR PRN (11:04)
[2016-12-09] MEDS ORDERED: HYDROCODONE/APAP 5/325 TAB PO PRN (11:37)
[2016-12-09] MEDS: SENNOSIDES/DOCUSATE SODIUM TAB PO SCH ×2 (13:16→20:49)
--- NOTE | 2016-12-09 14:37 | PDINTPN ---
Landscape Designer Progress Note Assessment/Plan: Assessment/plan: 31 M with hx polysubstance abuse admitted after cardiac arrest with cocaine and opiates on tox screen. Family also mentioned "spice" (synthetic THC). Course complicated by AMI requiring stent with revision and intermittent agitation. Self-extubated evening of 12/03, but re-intubated AM 12/04 for return to ear mold laboratory technician wher stent was found to be patent. # CAD/AMI- s/p stent with redo 2/2 stenosis; currently treated with Coreg, ASA, Effient. # Hypotension- he has required intermittent pressors and remains on low dose gracie at this point. No evidence of adrenal insufficiency, septic shock, or cardiogenic shock. Not fluid responsive on NICOM. Increase midodrine to 10 tid and ask cards to reduce coreg dose. # Respiratory failure with hypoxia- Extubated. Continue pulmonary toilet. Remains on RA # Altered MS- may be related to wd from ingestion versus toxic encephalopathy 11/17 arrest and medications. Improving daily # Fever- bcx from 12/03 NTD. Small puncture wound at coccyx- appears closed at this point. # DVT prophylaxis- heparin started 12/09/16 14:35 Subjective: Feels well but still c/o SPECIAL MAKEUP FX ARTIST INSTRUCTOR cough. Off/on gracie for BP Objective: Vital Signs Temp Pulse Resp BP Pulse Ox 36.8 C 90 23 H 91/60 L 95 12/09/16 01:00 12/09/16 13:00 12/09/16 13:00 12/09/16 13:10 12/09/16 13:10 Microbiology 12/05/16 20:40 Blood Culture - Final Blood Staphylococcus Capitis Staphylococcus Epidermidis Blood Panel (PCR) - Final Staph Coagulase Negative 12/03/16 21:57 Blood Culture - Final Blood 12/03/16 21:40 Blood Culture - Final Blood Laboratory Results 12/08/16 05:20 12/09/16 04:10 12/08/16 12/09/16 12/10/16 05:59 05:59 05:59 Intake Total 5675 2294 Output Total 1500 1300 Balance 4175 994 PT 24.7 SEC (12.0-15.0) H 12/09/16 04:10 INR 2.21 (0.83-1.16) H 12/09/16 04:10 Physical Exam - Physical Exam General Appearance: WD/WN, alert, no apparent distress EENT: PERRL/EOMI Neck: supple Respiratory: lungs clear, normal breath sounds, No respiratory distress Cardiac/Chest: normal peripheral pulses, regular rate, rhythm, No edema Abdomen: normal bowel sounds, non-tender, soft, No distended Skin: normal color, No rash Extremities: No pedal edema Neuro/Psych: alert, normal mood/affect, oriented x 3 ICD10 Worksheet Patient Problems: Problems Problem Status Onset STEMI (ST elevation myocardial infarction) Acute Abscess of axilla Active Fever Active Obesity Active Renal failure syndrome Active
[2016-12-09] MEDS: ALTEPLASE 2 MG VIAL IVP PRN ×2 (14:45→15:55)
--- NOTE | 2016-12-09 16:43 | PDCARPN ---
Cardiology Progress Note Assessment/Plan: Anterior ST Segment Elevation Myocardial Infarction- s/p PCI of thrombotic occlusion of the proximal LAD in the early hours of 11/30. Returned to cardiac laborer car barn approximately 12 hours later secondary to recurrent chest discomfort. Found to have subacute stent thrombosis treated with catheter-based thrombectomy and additional PCI/stenting. CPK peaked at 8000. Self-extubated p.m. of 12/03. Reported chest pain the following a.m. in conjunction with HR up to 140 to 150 bpm (sinus tachycardia) and borderline BP in the 90s systolic. 12-lead ECG suggested slight worsening of precordial ST segment elevation. Echo continued to show LAD territory akinesis with hypercontractile function in other territories. No evidence of free wall rupture or acute VSD. Overall clinical picture consistent with cardiogenic shock and worrisome for repeat stent thrombosis. Was taken back to cardiac laborer car barn 12/04 where angiography revealed that stented segment of the LAD was patent and that there were no new coronary issues. Right heart hemodynamics revealed mild to moderate pulmonary hypertension with PA systolic pressure of 45 to 50 mmHg elevated PCWP and LVEDP at 34 mmHg. Had high cardiac output at over 9 L/min. Right heart O2 saturation run negative for evidence of intracardiac shunt. > No recurrent angina > VT presentation at age 31 and occurrence of subacute stent thrombosis raise questions about an underlying hypercoaguable state. Will check for Factor V Leiden mutation. Hematology consult as an outpatient prior to completing his course of warfarin. Coronary Artery Disease- PCI procedures as above for proximal LAD occlusion. No other flow-limiting stenoses in other coronary territories. > Needs DAPT with ASA and Effient for 12 months. (Genetic testing indicates he could take clopidogrel if Effient not an option.) > Secondary prevention- now on statin therapy. Ischemic Cardiomyopathy- LV wall motion notable for akinesis of LAD territory. Suspect he has now completed a transmural anterolateral infarction. LVEF in laborer car barn 12/04 appeared to be at least 45% but this is predicated on hyperdynamic contractility of the non-infarcted wall segments. Expect that his chronic LVEF will be much lower. > Initiation of standard post-VT/cardiomyopathy meds was delayed by low BP and concern regarding unopposed alpha stimulation with beta lynette in setting of recent cocaine use. > Now on carvedilol. > SANKET-I and aldosterone antagonist when BP allows. > Will need 3 to 6 months of systemic anticoagulation due to risk of LV mural thrombus. > INR 2.21 today. Persistent Tachycardia- not explained by LV function status or right heart cath findings. There is a question of withdrawal. Initial tox screen positive for THC and cocaine. > Improving on carvedilol. Hypotension- continues on IV phenylephrine. Did not respond to NICOM fluid challenge on 12/07. > Phenylephrine being slowly weaned. 12/09/16 16:44 Subjective: No CV complaints. Objective: Vital Signs (8 Hrs) Pulse Resp BP Pulse Ox 12/09/16 15:00 93 20 82/59 L 95 12/09/16 14:00 94 16 87/59 L 93 12/09/16 13:10 91/60 L 95 12/09/16 13:00 90 23 H 91/60 L 95 12/09/16 12:00 93 23 H 92/57 L 93 12/09/16 11:00 88 36 H 90/51 L 93 12/09/16 10:00 82 30 H 91/58 L 92 12/09/16 09:00 96 36 H 96/56 L 90 L Intake/Output (24 Hrs) 12/08/16 12/09/16 12/10/16 05:59 05:59 05:59 Intake Total 5675 2294 Output Total 1500 1300 Balance 4175 994 Intake: Oral (ml) 1900 1350 IV Intake (ml) 1000 IV Infused (ml) 2775 944 Heparin/Dextrose 500 ml @ 450 Per Protocol IV CONT URIEL Rx#:[id number] Heparin/Dextrose 500 ml @ 365 160 Per Protocol IV CONT URIEL Rx#:[id number] Ns 1,000 ml @ 75 mls/hr 1518 335 IV AD URIEL Rx#:[id number] Phenylephrine HCl 50 mg 442 449 In D5w 250 ml @ Per Protocol IV CONT URIEL Rx#: [id number] Output: Urine (ml) 1500 1300 Incontinence 500 Urinal 1000 1300 Other: Weight 74.1 kg 75 kg Number of Voids Incontinence 5 Toilet 3 Number of Stools Incontinence 3 Result Diagrams: 12/08/16 05:20 12/09/16 04:10 - Physical Exam Constitutional: no apparent distress Eyes: anicteric sclera Ears, Nose, Mouth, Throat: moist mucous membranes Cardiovascular: regular rate and rhythm, no murmurs, no gallops Respiratory: other (decreased at bases) Gastrointestinal: normoactive bowel sounds, no tenderness, no masses Skin: no rashes, no edema Neurologic: AAOx3 Psychiatric: not anxious ICD10 Worksheet Patient Problems: Problems Problem Status Onset STEMI (ST elevation myocardial infarction) Acute Abscess of axilla Active Fever Active Obesity Active Renal failure syndrome Active
[2016-12-09 18:40] LABS: POTASSIUM 3.8 mEq/L (3.5-5.2)
[2016-12-09] MEDS: CARVEDILOL 3.125 MG TAB PO SCH (18:49)
[2016-12-09] MEDS: WARFARIN SODIUM 3 MG TAB PO SCH (18:49)
[2016-12-09] MEDS ORDERED: POTASSIUM CL 10 MEQ TAB PO ONE (20:16)
[2016-12-09] MEDS: LORazepam 2 MG/ML INJ IVP PRN (22:05)
[2016-12-10] MEDS: ALPRAZolam 0.25 MG TAB PO PRN ×3 (01:53→23:09)
[2016-12-10] MEDS: LORazepam 2 MG/ML INJ IVP PRN (01:53)
[2016-12-10] MEDS: PHENYLEPHRINE HCL 50 MG in D5W 250 ML IV SCH ×2 (01:53→23:35)
[2016-12-10 06:38] LABS: INR 2.16 (0.83-1.16); PROTIME(PATIENT) 24.3 SEC (12.0-15.0)
[2016-12-10 07:02] LABS: MAGNESIUM 2.1 mg/dL (1.6-2.3); POTASSIUM 4.4 mEq/L (3.5-5.2)
[2016-12-10] MEDS: CHLORHEXIDINE GLUCONATE 15 ML UDL PO SCH ×2 (07:37→21:37)
[2016-12-10] MEDS: SENNOSIDES/DOCUSATE SODIUM TAB PO SCH ×2 (07:37→21:37)
[2016-12-10] MEDS ORDERED: ALBUMIN 25% 100 ML IV ONE (08:13)
[2016-12-10] MEDS: MIDODRINE HCL 5 MG TAB PO SCH ×3 (09:09→16:51)
[2016-12-10] MEDS: ASPIRIN EC 81 MG TAB PO SCH (09:09)
[2016-12-10] MEDS: ATORVASTATIN CALCIUM 40 MG TAB PO SCH (09:09)
[2016-12-10] MEDS: FAMOTIDINE 20 MG TAB PO SCH ×2 (09:09→23:09)
[2016-12-10] MEDS: PRASUGREL HCL 10 MG TAB PO SCH (09:09)
[2016-12-10] MEDS: CARVEDILOL 3.125 MG TAB PO SCH (09:29)
[2016-12-10] MEDS: ERTAPENEM 1 GM in NS 100 ML IV SCH (09:59)
[2016-12-10 10:13] LABS: ABSOLUTE IMMATURE GRANULOCYTES 0.18 10^3/uL (0.00-0.10); ADD DIFF? NO; ADD MORPH? NO; ADD SCAN? YES; FRAGMENT RBC FLAG 0 (0-99); HEMATOCRIT 32.5 % (40.0-51.0); HEMOGLOBIN 11.1 g/dL (13.7-17.5); LEFT SHIFT FLG 20 (0-99); LIPEMIA HEMOLYSIS FLAG 90 (0-99); MEAN CELL HEMOGLOBIN 31.6 pg (27.9-34.1); MEAN CELL HEMOGLOBIN CONCENTR. 34.2 g/dL (32.4-36.7); MEAN CELL VOLUME 92.6 fL (81.5-99.8); MEAN PLATELET VOLUME 10.6 fL (8.7-11.7); PLATELET CLUMPS FLAG 10 (0-99); PLATELET COUNT 488 10^3/uL (150-400); RED BLOOD CELL COUNT 3.51 10^6/uL (4.40-6.38); RED CELL DISTRIBUTION WIDTH 13.5 % (11.5-15.2)
[2016-12-10 10:14] LABS: ATYPICAL LYMPHOCYTE FLAG 110 (0-99)
--- NOTE | 2016-12-10 10:16 | PDCARPN ---
Cardiology Progress Note Chief Complaint: Anterior ST Segment Elevation Myocardial Infarction- s/p PCI of thrombotic occlusion of the proximal LAD in the early hours of 11/30. Returned to cardiac laborer carpentry dock approximately 12 hours later secondary to recurrent chest discomfort. Found to have subacute stent thrombosis treated with catheter-based thrombectomy and additional PCI/stenting. CPK peaked at 8000. Self-extubated p.m. of 12/03. Reported chest pain the following a.m. in conjunction with HR up to 140 to 150 bpm (sinus tachycardia) and borderline BP in the 90s systolic. 12-lead ECG suggested slight worsening of precordial ST segment elevation. Echo continued to show LAD territory akinesis with hypercontractile function in other territories. No evidence of free wall rupture or acute VSD. Overall clinical picture consistent with cardiogenic shock and worrisome for repeat stent thrombosis. Was taken back to cardiac laborer carpentry dock 12/04 where angiography revealed that stented segment of the LAD was patent and that there were no new coronary issues. Right heart hemodynamics revealed mild to moderate pulmonary hypertension with PA systolic pressure of 45 to 50 mmHg elevated PCWP and LVEDP at 34 mmHg. Had high cardiac output at over 9 L/min. Right heart O2 saturation run negative for evidence of intracardiac shunt. Coronary Artery Disease- PCI procedures as above for proximal LAD occlusion. No other flow-limiting stenoses in other coronary territories. Ischemic Cardiomyopathy- LV wall motion notable for akinesis of LAD territory. Suspect he has now completed a transmural anterolateral infarction. LVEF in laborer carpentry dock 12/04 appeared to be at least 45% but this is predicated on hyperdynamic contractility of the non-infarcted wall segments. Expect that his chronic LVEF will be much lower. Persistent Tachycardia- not explained by LV function status or right heart cath findings. There is a question of withdrawal. Initial tox screen positive for THC and cocaine. Hypotension- continues on IV phenylephrine. Did not respond to NICOM fluid challenge on 12/07. Assessment/Plan: Assessment: Clinically he appears to be doing well. Unfortunately, he has manifested ongoing hypotension. The exact etiology is not entirely clear. I am a little bit confused regarding his current medical management. I am not sure of the utility of continuing to administer a combination beta and alpha lynette in conjunction with alpha agonists in the form of Lazaro-Synephrine and midodrine. Plan: I would like to try to discontinue his Lazaro-Synephrine. I have also discontinued his Coreg . Once he is a little more hemodynamically stable in the absence of vaso active medications we can consider instituting beta blockers and possibly other cardiovascular medications. His systemic anticoagulation will be continued. An echocardiogram is currently being performed. We will follow along with you. 12/10/16 10:20 Subjective: The patient was seen and examined. His chart was reviewed. I am covering for the weekend. Today states he feels well. He is experiencing a little bit of "heartburn." He states he has had this in the past and this discomfort is distinctly different from his heart attack pain. He notes no shortness of breath. He continues to require low-dose Lazaro-Synephrine. Objective: Vital Signs (8 Hrs) Temp Pulse Resp BP Pulse Ox 12/10/16 07:00 36.7 C 81 25 H 119/76 96 12/10/16 06:00 85 24 H 96/55 L 95 12/10/16 05:00 86 26 H 104/73 92 12/10/16 04:00 82 28 H 95/56 L 95 12/10/16 03:00 91 24 H 107/74 95 Intake/Output (24 Hrs) 12/09/16 12/10/16 12/11/16 05:59 05:59 05:59 Intake Total 2294 1125 Output Total 1300 Balance 994 1125 Intake: Oral (ml) 1350 250 IV Intake (ml) 586 IV Infused (ml) 944 289 Heparin/Dextrose 500 ml @ 160 Per Protocol IV CONT URIEL Rx#:[id number] Ns 1,000 ml @ 75 mls/hr 335 IV AD URIEL Rx#:[id number] Phenylephrine HCl 50 mg 449 289 In D5w 250 ml @ Per Protocol IV CONT URIEL Rx#: [id number] Output: Urine (ml) 1300 Urinal 1300 Other: Weight 74.1 kg 75 kg Intake Quantity Yes Sufficient Number of Voids Toilet 3 1 Number of Stools Toilet 3 Result Diagrams: 12/10/16 09:45 12/10/16 05:50 - Physical Exam Constitutional: WDWN, healthy appearing Ears, Nose, Mouth, Throat: moist mucous membranes Cardiovascular: regular rate and rhythm, no murmurs, no rubs, no gallops Peripheral Pulses: 2+: carotid (R), carotid (L) Respiratory: clear to auscultate bilat Gastrointestinal: normoactive bowel sounds Psychiatric: cooperative, interactive ICD10 Worksheet Patient Problems: Problems Problem Status Onset STEMI (ST elevation myocardial infarction) Acute Abscess of axilla Active Fever Active Obesity Active Renal failure syndrome Active
[2016-12-10 10:34] LABS: ANION GAP 8 mEq/L (8-16); CALCIUM 9.1 mg/dL (8.5-10.4); CARBON DIOXIDE 23 mEq/l (22-31); CHLORIDE 108 mEq/L (97-110); CREATININE 0.8 mg/dL (0.7-1.3); GLOMERULAR FILTRATION RATE > 60; GLUCOSE 103 mg/dL (70-100); POTASSIUM 4.1 mEq/L (3.5-5.2); SODIUM 139 mEq/L (134-144)
[2016-12-10 11:49] LABS: SCAN NEGATIVE
--- NOTE | 2016-12-10 14:00 | PDINTPN ---
Building Repair Maintenance Supervisor Progress Note Assessment/Plan: Assessment/plan: 31 M with hx polysubstance abuse admitted after cardiac arrest with cocaine and opiates on tox screen. Family also mentioned "spice" (synthetic THC). Course complicated by AMI requiring stent with revision and intermittent agitation. Self-extubated evening of 12/03, but re-intubated AM 12/04 for return to blood and plasma laboratory assistant wher stent was found to be patent. # CAD/AMI- s/p stent with redo 2/2 stenosis; currently treated with Coreg, ASA, Effient. # Hypotension- he has required intermittent pressors and remains on low dose gracie at this point. No evidence of adrenal insufficiency, septic shock, or cardiogenic shock. Not fluid responsive on NICOM, and did not respond to albumin bolus today. Coreg held for now. Sent TSH, ACTH stim test for AM # Respiratory failure with hypoxia- Extubated. Continue pulmonary toilet. Remains on RA # Altered MS- may be related to wd from ingestion versus toxic encephalopathy / arrest and medications. Improving daily # Fever- bcx from 12/03 NTD. Small puncture wound at coccyx- appears closed at this point. # DVT prophylaxis- heparin started Subjective: Remains stable but still dependent on gracie despite midodrine Objective: Vital Signs Temp Pulse Resp BP Pulse Ox 36.9 C 93 30 H 85/54 L 96 12/10/16 13:00 12/10/16 13:00 12/10/16 13:00 12/10/16 13:00 12/10/16 13:00 Microbiology 12/05/16 20:40 Blood Culture - Final Blood Staphylococcus Capitis Staphylococcus Epidermidis Blood Panel (PCR) - Final Staph Coagulase Negative Laboratory Results 12/10/16 09:45 12/10/16 09:45 12/09/16 12/10/16 12/11/16 05:59 05:59 05:59 Intake Total 2294 1125 Output Total 1300 Balance 994 1125 PT 24.3 SEC (12.0-15.0) H 12/10/16 05:50 INR 2.16 (0.83-1.16) H 12/10/16 05:50 Physical Exam - Physical Exam General Appearance: WD/WN, alert, no apparent distress EENT: PERRL/EOMI Neck: supple Respiratory: lungs clear, normal breath sounds, No respiratory distress Cardiac/Chest: normal peripheral pulses, regular rate, rhythm, No edema Abdomen: normal bowel sounds, non-tender, soft, No distended Skin: normal color, warm/dry, No rash Lymphatic: no adenopathy Extremities: No pedal edema Neuro/Psych: alert, normal mood/affect, oriented x 3 ICD10 Worksheet Patient Problems: Problems Problem Status Onset STEMI (ST elevation myocardial infarction) Acute Abscess of axilla Active Fever Active Obesity Active Renal failure syndrome Active
[2016-12-10] MEDS: WARFARIN SODIUM 3 MG TAB PO SCH (16:51)
[2016-12-10] MEDS: TEMAZEPAM 15 MG CAP PO PRN (23:08)
[2016-12-11 05:20] LABS: ABSOLUTE IMMATURE GRANULOCYTES 0.17 10^3/uL (0.00-0.10); ADD DIFF? NO; ADD MORPH? NO; ADD SCAN? NO; ATYPICAL LYMPHOCYTE FLAG 50 (0-99); FRAGMENT RBC FLAG 0 (0-99); HEMATOCRIT 33.9 % (40.0-51.0); HEMOGLOBIN 11.5 g/dL (13.7-17.5); LEFT SHIFT FLG 0 (0-99); LIPEMIA HEMOLYSIS FLAG 90 (0-99); MEAN CELL HEMOGLOBIN 31.7 pg (27.9-34.1); MEAN CELL HEMOGLOBIN CONCENTR. 33.9 g/dL (32.4-36.7); MEAN CELL VOLUME 93.4 fL (81.5-99.8); MEAN PLATELET VOLUME 10.6 fL (8.7-11.7); PLATELET CLUMPS FLAG 0 (0-99); PLATELET COUNT 561 10^3/uL (150-400); RED BLOOD CELL COUNT 3.63 10^6/uL (4.40-6.38); RED CELL DISTRIBUTION WIDTH 13.6 % (11.5-15.2)
[2016-12-11 05:26] LABS: INR 2.33 (0.83-1.16); PROTIME(PATIENT) 25.8 SEC (12.0-15.0)
[2016-12-11 05:34] LABS: ANION GAP 8 mEq/L (8-16); CALCIUM 9.3 mg/dL (8.5-10.4); CARBON DIOXIDE 23 mEq/l (22-31); CHLORIDE 108 mEq/L (97-110); CREATININE 0.8 mg/dL (0.7-1.3); GLOMERULAR FILTRATION RATE > 60; GLUCOSE 97 mg/dL (70-100); MAGNESIUM 1.9 mg/dL (1.6-2.3); POTASSIUM 3.9 mEq/L (3.5-5.2); SODIUM 139 mEq/L (134-144)
[2016-12-11 06:02] LABS: CORTISOL-AM 2.3 ug/dL (4.5-22.7)
[2016-12-11] MEDS ORDERED: COSYNTROPIN 0.25 MG/2 ML SYRINGE IVP ONE (08:00)
[2016-12-11] MEDS: ERTAPENEM 1 GM in NS 100 ML IV SCH (09:59)
[2016-12-11] MEDS: PRASUGREL HCL 10 MG TAB PO SCH (10:00)
[2016-12-11] MEDS: ASPIRIN EC 81 MG TAB PO SCH (10:00)
[2016-12-11] MEDS: FAMOTIDINE 20 MG TAB PO SCH ×2 (10:00→20:58)
[2016-12-11] MEDS: MIDODRINE HCL 5 MG TAB PO SCH ×3 (10:00→18:31)
[2016-12-11] MEDS: SENNOSIDES/DOCUSATE SODIUM TAB PO SCH ×2 (10:00→20:58)
[2016-12-11] MEDS: ATORVASTATIN CALCIUM 40 MG TAB PO SCH (10:00)
--- NOTE | 2016-12-11 10:44 | ECHO ---
[id number] + + [address] : : [place] [address] : : [phone] + + Adult Echocardiographic Report + + :Name: ANGELA SCHROEDER SStudy Date: 12/11/2016 10:01 AM : : Hospital Admission Number: [id number] Loc ation: 256: :: 1985 Gender: Male : :Age: 31 yrs Race: WH,PTD : :Reason For Study: Hypotension : + + MMode/2D Measurements \T\ Calculations LVIDd: 4.7 cmEDV(Teich): 104.2 ml LVLd ap4: 7.9 cm SV(MOD-sp4): 37.0 ml EDV(MOD-sp4): 73.0 ml LVLs ap4: 7.1 cm ESV(MOD-sp4): 36.0 ml EF(MOD-sp4): 50.7 % Normal Measurement Values: + + :LVIDd (3.5-5.7cm) IVSd (0.6-1.1cm) LVPWd (0.6-1.1cm) Aortic Root (2.0-3.7cm)Left Atrium (1.5-4.0cm): :LV Vol(d) (76-115ml) LV Vol(s) (29-48ml) Ejec Fraction (50-65%)PV Bimal (0.6- 1.2m/s) TV Bimal (0.4-1.0m/s) : :MV E Bimal (0.8-1.0m/s)MV A Bimal (0.3-1.0m/s)LVOT Bimal (0.7-1.2m/s) Asc Ao Bimal ( 0.9-1.8m/s) : + + Doppler Measurements \T\ Calculations Ao V2 max: 111.9 cm/sec TR max bimal: 330.8 cm/sec Ao max P.0 mmHg TR max P.8 mmHg RAP systole: 5.0 mmHg RVSP(TR): 48.8 mmHg Left Ventricle Cannot exclude LV apical thrombus. No LVOT obstruction noted. EF estimate is 35-40%. There is akinesis of the interventricular septum, anterior wall and apex. Right Ventricle The right ventricle is normal in size and function. Atria The left atrium is mildly dilated. Right atrial size is normal. Contrast injected - no intraatrial shunt by saline injection (still suggested by color flow). Mitral Valve The mitral valve is normal. There is mild to moderate mitral regurgitation. Tricuspid Valve Normal tricuspid valve. There is moderate tricuspid regurgitation. Right ventricular systolic pressure is 49mmHg. There is Doppler evidence for mild pulmonary hypertension. Pulmonic Valve Mild pulmonic valvular regurgitation. Pericardium/Pleural trivial pericardial effusion. Conclusion Limited 2-D echo. Normal LV size with moderately reduced LV systolic function. EF estimate is 35-40%. There is akinesis of the interventricular septum, anterior wall and apex. Cannot exclude LV apical thrombus. No LVOT obstruction noted. The left atrium is mildly dilated. Normal appearing cardiac valves. There is mild to moderate mitral regurgitation. There is moderate tricuspid regurgitation. Right ventricular systolic pressure is 49mmHg. Trivial pericardial effusion. Small color flow doppler signal across the interatrial septum from left to right consistent with a small ASD/PFO. An agitated saline contrast study suggested negative contrast in the right atrium. Final Reading Physician: Bre Lua signed on 12/11/2016 10:43 AM Ordering Physician: Alexey Aldridge Performed By: Padmini Bridges RDCS
[2016-12-11] MEDS: ALPRAZolam 0.25 MG TAB PO PRN ×2 (11:26→20:57)
--- NOTE | 2016-12-11 13:39 | PDINTPN ---
Metal Leaf Layer Progress Note Assessment/Plan: Assessment/plan: 31 M with hx polysubstance abuse admitted after cardiac arrest with cocaine and opiates on tox screen. Family also mentioned "spice" (synthetic THC). Course complicated by AMI requiring stent with revision and intermittent agitation. Self-extubated evening of 12/03, but re-intubated AM 12/04 for return to construction or leak gang laborer wher stent was found to be patent. # CAD/AMI- s/p stent with redo 2/2 stenosis; currently treated with Coreg, ASA, Effient. # Hypotension- Etiology is unclear. He has required intermittent pressors and remains dependent on low dose gracie. No evidence of adrenal insufficiency- ACTH stim normal 12/11. TSH low with normal FT4 suggested euthyroid. NICOM negative and empiric fluid challenges without effect. Repeat echo today without change, eg EF 35-40 without effusion (though septum, anterior wall and apex are akinetic ). Coreg held since am 12/10. His wbc has been hovering between 15-18 (16 today) but he has been afebrile with no clear evidence of infection. CXR without evidence of infection. Reculture today and consider ID consult in AM. Procalcitonin not currently available, but would be useful adjunct in this situation. I do not think he has septic shock, and he remains on ertapenem. Bcx from 12/05 with S. epi, S. Capita, and SCREW CUTTER- presumed contaminants. DC all narcotics. Unlikely sequelae of cocaine or "spice." # Respiratory failure with hypoxia- Extubated. Continue pulmonary toilet. Remains on RA # Altered MS- may be related to wd from ingestion versus toxic encephalopathy 2/ 2 arrest and medications. Improving daily # Fever- Resolved- was associated with extubation/re-intubation perios early in hospital course. Small puncture wound at coccyx- appears closed at this point. # DVT prophylaxis- heparin started 12/11/16 13:39 Subjective: Remains stable and without complaints Objective: Vital Signs Temp Pulse Resp BP Pulse Ox 36.6 C 93 18 103/61 96 12/11/16 12:00 12/11/16 12:00 12/11/16 12:00 12/11/16 12:00 12/11/16 12:00 Microbiology 12/05/16 20:31 Blood Culture - Final Blood Laboratory Results 12/11/16 05:05 12/11/16 05:05 12/10/16 12/11/16 12/12/16 05:59 05:59 05:59 Intake Total 1125 785 Balance 1125 785 PT 25.8 SEC (12.0-15.0) H 12/11/16 05:05 INR 2.33 (0.83-1.16) H 12/11/16 05:05 Physical Exam - Physical Exam General Appearance: WD/WN, alert, no apparent distress EENT: PERRL/EOMI Neck: supple Respiratory: lungs clear, normal breath sounds, No respiratory distress Cardiac/Chest: normal peripheral pulses, regular rate, rhythm, No edema Abdomen: normal bowel sounds, non-tender, soft, No distended Skin: normal color, warm/dry, No rash Lymphatic: no adenopathy Extremities: No pedal edema Neuro/Psych: alert, normal mood/affect, oriented x 3 ICD10 Worksheet Patient Problems: Problems Problem Status Onset STEMI (ST elevation myocardial infarction) Acute Abscess of axilla Active Fever Active Obesity Active Renal failure syndrome Active
--- NOTE | 2016-12-11 13:48 | SOAPPROG ---
SOAP Progress Note Assessment/Plan: Assessment: Clinically he appears to be doing well. Unfortunately, he has manifested ongoing hypotension. The exact etiology is not entirely clear. I am a little bit confused regarding his current medical management. There is no indication of hypothyroidism or adrenal insufficiency. Does have a persistent leukocytosis with climbing platelet count which makes me wonder if he has some form of an underlying occult infection that was not discovered. His cardiac status is stable. Plan: 1. For the time being he will continue using midodrine and low-dose Alzaro- Synephrine for hemodynamic support. 2. I did discontinue his beta-blockers yesterday. These have not been restarted. 3. I have discussed his case with Dr. Hancock from the ICU. I think the patient would benefit from panculture and consider consultation with Infectious Disease. 4. We will continue to follow along. Subjective: Clinically he remains stable. He has no complaints specifically denies chest pain, chest pressure, heaviness, dyspnea and dizziness. Does, however, remain hypotensive which has been unresponsive to fluid boluses and albumin. Remains dependent on a low-dose of Lazaro-Synephrine as well as oral midodrine. Thus far, no cause has been identified. Specifically, evaluation of his thyroid axis is normal as well as his adrenal axis. He had an echocardiogram today which I reviewed. While this demonstrates findings consistent with his previous infarct there is no indication of a cause for his hypotension. Objective: Vital Signs Temp Pulse Resp BP Pulse Ox 36.6 C 93 18 103/61 96 12/11/16 12:00 12/11/16 12:00 12/11/16 12:00 12/11/16 12:00 12/11/16 12:00 Microbiology 12/05/16 20:31 Blood Culture - Final Blood Laboratory Results 12/11/16 05:05 12/11/16 05:05 12/10/16 12/11/16 12/12/16 05:59 05:59 05:59 Intake Total 1125 785 Balance 1125 785 PT 25.8 SEC (12.0-15.0) H 12/11/16 05:05 INR 2.33 (0.83-1.16) H 12/11/16 05:05 Physical Exam - Physical Exam General Appearance: WD/WN, no apparent distress Neck: non-tender Respiratory: lungs clear Cardiac/Chest: regular rate, rhythm, No edema, No gallop, No JVD Peripheral Pulses: 2+: carotid (R), carotid (L) ICD10 Worksheet Patient Problems: Problems Problem Status Onset STEMI (ST elevation myocardial infarction) Acute Abscess of axilla Active Fever Active Obesity Active Renal failure syndrome Active
[2016-12-11 17:43] LABS: COLOR YELLOW; LEUKOCYTE ESTERASE,URINE NEGATIVE (NEGATIVE); NITRITE,URINE NEGATIVE (NEGATIVE)
[2016-12-11] MEDS: WARFARIN SODIUM 3 MG TAB PO SCH (18:31)
[2016-12-11] MEDS: ACETAMINOPHEN 325 MG TAB PO PRN (18:39)
[2016-12-11] MEDS: PHENYLEPHRINE HCL 50 MG in D5W 250 ML IV SCH (23:39)
[2016-12-11] MEDS: TEMAZEPAM 15 MG CAP PO PRN (23:41)
[2016-12-12] MEDS: ALPRAZolam 0.25 MG TAB PO PRN (02:59)
[2016-12-12 06:41] LABS: % IMMATURE GRANULYOCYTES 1.2 % (0.0-1.1); ADD DIFF? NO; ADD MORPH? NO; ADD SCAN? NO; ATYPICAL LYMPHOCYTE FLAG 50 (0-99); FRAGMENT RBC FLAG 0 (0-99); HEMATOCRIT 31.1 % (40.0-51.0); HEMOGLOBIN 10.6 g/dL (13.7-17.5); INR 2.46 (0.83-1.16); LEFT SHIFT FLG 0 (0-99); LIPEMIA HEMOLYSIS FLAG 90 (0-99); MEAN CELL HEMOGLOBIN 31.9 pg (27.9-34.1); MEAN CELL HEMOGLOBIN CONCENTR. 34.1 g/dL (32.4-36.7); MEAN CELL VOLUME 93.7 fL (81.5-99.8); MEAN PLATELET VOLUME 10.8 fL (8.7-11.7); PLATELET CLUMPS FLAG 0 (0-99); PLATELET COUNT 567 10^3/uL (150-400); PROTIME(PATIENT) 26.9 SEC (12.0-15.0); RED BLOOD CELL COUNT 3.32 10^6/uL (4.40-6.38); RED CELL DISTRIBUTION WIDTH 14.1 % (11.5-15.2)
[2016-12-12 07:01] LABS: ANION GAP 10 mEq/L (8-16); CALCIUM 9.3 mg/dL (8.5-10.4); CARBON DIOXIDE 23 mEq/l (22-31); CHLORIDE 105 mEq/L (97-110); CREATININE 0.8 mg/dL (0.7-1.3); GLOMERULAR FILTRATION RATE > 60; GLUCOSE 173 mg/dL (70-100); MAGNESIUM 1.9 mg/dL (1.6-2.3); POTASSIUM 4.2 mEq/L (3.5-5.2); SODIUM 138 mEq/L (134-144)
[2016-12-12] MEDS: ATORVASTATIN CALCIUM 40 MG TAB PO SCH (08:22)
[2016-12-12] MEDS: ASPIRIN EC 81 MG TAB PO SCH (08:22)
[2016-12-12] MEDS: PRASUGREL HCL 10 MG TAB PO SCH (08:22)
[2016-12-12] MEDS: FAMOTIDINE 20 MG TAB PO SCH ×2 (08:22→21:50)
[2016-12-12] MEDS: MIDODRINE HCL 5 MG TAB PO SCH ×3 (08:23→15:43)
[2016-12-12] MEDS: ERTAPENEM 1 GM in NS 100 ML IV SCH (08:23)
[2016-12-12] MEDS: SENNOSIDES/DOCUSATE SODIUM TAB PO SCH ×2 (08:32→22:50)
--- NOTE | 2016-12-12 14:27 | PDINTPN ---
Rehab Therapy Manager Progress Note Assessment/Plan: Assessment: 31 M with hx polysubstance abuse admitted after cardiac arrest with cocaine and opiates on tox screen. Family also mentioned "spice" (synthetic THC). Course complicated by AMI requiring stent with revision and intermittent agitation. 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 # CAD/AMI- s/p stent with redo 2/2 stenosis; currently treated with ASA, Effient. Coreg d/c'd due to hypotension # Hypotension- Etiology is unclear. He has required intermittent pressors and remains dependent on low dose gracie. No evidence of adrenal insufficiency- ACTH stim normal 12/11. TSH low with normal FT4 suggested euthyroid. NICOM negative and empiric fluid challenges without effect. Repeat echo yesterday without change, eg EF 35-40 without effusion (though septum, anterior wall and apex are akinetic), mild pulmonary HTN. His wbc has been hovering between 15-18 (16 today ) but he has been afebrile with no clear evidence of infection. CXR without evidence of infection. I do not think he has septic shock, and he remains on ertapenem. Bcx from 12/05 with S. epi, S. Capita, and CRUSHER [employer]TER- presumed contaminants. DC all narcotics. Unlikely sequelae of cocaine or "spice" at this point. # Respiratory failure with hypoxia- Extubated. Continue pulmonary toilet. Remains on RA # Altered MS- may be related to wd from ingestion versus toxic encephalopathy 2/ 2 arrest and medications. Improving daily # Fever- Resolved- was associated with extubation/re-intubation periods early in hospital course. Small puncture wound at coccyx- appears closed at this point. # DVT prophylaxis- heparin started Plan: Reduce phenylephrine even in BP falls, resuming if symptomatic. Check NICOM, then give fluid bolus and recheck. Follow WBC. 12/12/16 14:59 Subjective: C/O feeling poorly overall. Voice is weaker. Denies pain except with cough, dyspnea. Appetite fair Objective: Vital Signs Temp Pulse Resp BP Pulse Ox 36.8 C 106 H 18 88/61 L 98 12/12/16 08:00 12/12/16 09:30 12/12/16 08:00 12/12/16 09:30 12/12/16 08:00 Laboratory Results 12/12/16 06:15 12/12/16 06:15 12/11/16 12/12/16 12/13/16 05:59 05:59 05:59 Intake Total 785 1161 Balance 785 1161 PT 26.9 SEC (12.0-15.0) H 12/12/16 06:15 INR 2.46 (0.83-1.16) H 12/12/16 06:15 Physical Exam - Physical Exam General Appearance: alert, no apparent distress EENT: normal ENT inspection Neck: normal inspection Respiratory: lungs clear Cardiac/Chest: regular rate, rhythm, No edema Abdomen: normal bowel sounds, non-tender Skin: normal color, warm/dry Extremities: normal inspection Neuro/Psych: alert, oriented x 3, No normal mood/affect (anxious) ICD10 Worksheet Patient Problems: Problems Problem Status Onset STEMI (ST elevation myocardial infarction) Acute Abscess of axilla Active Fever Active Obesity Active Renal failure syndrome Active
[2016-12-12] MEDS ORDERED: ALBUMIN 5% 500 ML IV ONE (14:45)
[2016-12-12] MEDS: WARFARIN SODIUM 3 MG TAB PO SCH (15:43)
--- NOTE | 2016-12-12 15:50 | PDCARPN ---
Cardiology Progress Note Assessment/Plan: Assessment/plan: 31-year-old male with anterior ST-elevation AR on November 30. He did have a witnessed VF arrest and was resuscitated in the field. LAD occlusion was treated with PCI to the LAD. His course has been complicated by early stent thrombosis requiring repeat PCI on the . Balloon pump was placed at that time. Then had a 3rd angiogram on the with patent stents. His peak troponin was 319. Etiology of his AR is most likely cocaine. Urine toxicology was positive for cocaine, THC. Has persistent hypertension of unclear etiology currently being weaned off Lazaro- Synephrine. 1. Recent anterior ST-elevation AR with ischemic cardiomyopathy and stent thrombosis. at this point he is off beta-blockers or SANKET inhibitors due to persistent hypertension. Reduce these medications when able. Also consider Inspra. Continue dual antiplatelet therapy for minimum of 1 year. He is currently on Coumadin for high risk of developing LV apical thrombus in the setting of anteroapical wall motion abnormality. He was counseled that he should never use cocaine again. 2. hypotension: He does not appear clinically to be in cardiogenic shock. His CVP was between 0 and 5. evaluate with NICOM challenge. His white count is elevated but he is afebrile and there has been no clear source of infection based on chest x-ray, urinalysis, blood culture. No overt clinical bleeding. He does not seem to have an endocrine etiology for his hypertension. Track urine output. Wean Lazaro-Synephrine. 3.Polysubstance abuse: He will need support for this as an outpatient. I do not think that Zyban or nicotine replacement therapy is safe in the recent AR setting. Greater than 30 minutes was spent in chart review, discussion with the patient and family, coordination of care. Case discussed with Dr. Funez. 12/12/16 15:59 Subjective: Arya had some indigestion type discomfort today that resolved quickly after he took Tums. He denies dyspnea. He is not lightheaded in his chair. Does have 2 seconds of lightheadedness when he does transfers or is walking but this resolves quickly. No pain in his abdomen. No pain in his groins. Reviewed/Discussed With: family, other ( Dr. Funez) Objective: Vital Signs (8 Hrs) Temp Pulse Resp BP Pulse Ox 12/12/16 09:30 106 H 88/61 L 12/12/16 09:00 71 80/41 L 12/12/16 08:00 36.8 C 98 18 90/59 L 98 Intake/Output (24 Hrs) 12/11/16 12/12/16 12/13/16 05:59 05:59 05:59 Intake Total 785 1161 Balance 785 1161 Intake: Oral (ml) 220 IV Intake (ml) 563 580 IV Infused (ml) 222 361 Phenylephrine HCl 50 mg 222 361 In D5w 250 ml @ Per Protocol IV CONT URIEL Rx#: [id number] Other: Weight 76.2 kg Intake Quantity Yes Sufficient Output Comment Toilet not observed Number of Voids Toilet 2 1 Number of Stools Toilet 1 1 No acute distress. Small ecchymoses over his right eye. Regular rate and rhythm without murmur or gallop Lungs clear to auscultation bilaterally that wheezes rhonchi or rales Abdomen soft nontender nondistended. No bruits masses or hepatosplenomegaly Extremities are warm well perfused. No cyanosis clubbing or edema. Intact distal pulses. Alert and oriented x3 without gross focal neurological deficits. Appropriate mood and affect. Bilateral femoral arteriotomy sites have small ecchymosis without hematoma. No tenderness. chest x-ray reviewed: No pulmonary edema or pneumonia. Result Diagrams: 12/12/16 06:15 12/12/16 06:15 EKG: Admission EKGs reviewed: Extensive anterior ST-elevation AR. Telemetry: Sinus rhythm Echocardiogram: reviewed from 12/11: LV ejection fraction 35%. Anterior apical and inferoapical hypokinesis. Mild to moderate mitral regurgitation. ICD10 Worksheet Patient Problems: Problems Problem Status Onset Renal failure syndrome Active Fever Active Obesity Active Abscess of axilla Active STEMI (ST elevation myocardial infarction) Acute
--- NOTE | 2016-12-12 16:06 | CPEKG ---
Heart Rate: 87 RR Interval: 690 P-R Interval: 136 QRSD Interval: 80 QT Interval: 424 QTC Interval: 510 P [place]: 66 QRS [place]: 98 T Wave [place]: 104 EKG Severity - ABNORMAL ECG - EKG Impression: SINUS RHYTHM EKG Impression: LOW VOLTAGE WITH RIGHT AXIS DEVIATION EKG Impression: ANTEROSEPTAL INFARCT EKG Impression: ABNORMAL T, CONSIDER ISCHEMIA, LATERAL LEADS EKG Impression: PROLONGED QT INTERVAL EKG Impression: SIMILAR FINDINGS WERE NOTED ON 04-DEC-2016 WITH ANTERIOR/ANTEROSEPTAL LEADS Electronically Signed By: Cl Orta 13-Dec-2016 17:00:24
[2016-12-12] MEDS ORDERED: NOREPINEPHRINE BITARTRATE 4 MG in D5W 500 ML IV SCH (21:00)
[2016-12-12 23:04] LABS: POTASSIUM 3.8 mEq/L (3.5-5.2)
[2016-12-12] MEDS ORDERED: POTASSIUM CL 10 MEQ TAB PO ONE (23:27)
[2016-12-12] MEDS: MELATONIN 3 MG TAB PO SCH (23:52)
[2016-12-12] MEDS: TEMAZEPAM 15 MG CAP PO PRN (23:52)
[2016-12-13 06:18] LABS: ABSOLUTE IMMATURE GRANULOCYTES 0.13 10^3/uL (0.00-0.10); ADD DIFF? NO; ADD MORPH? NO; ADD SCAN? NO; ATYPICAL LYMPHOCYTE FLAG 50 (0-99); FRAGMENT RBC FLAG 10 (0-99); HEMOGLOBIN 10.3 g/dL (13.7-17.5); LEFT SHIFT FLG 0 (0-99); LIPEMIA HEMOLYSIS FLAG 80 (0-99); MEAN CELL HEMOGLOBIN 31.4 pg (27.9-34.1); MEAN CELL HEMOGLOBIN CONCENTR. 33.2 g/dL (32.4-36.7); MEAN CELL VOLUME 94.5 fL (81.5-99.8); MEAN PLATELET VOLUME 10.6 fL (8.7-11.7); PLATELET CLUMPS FLAG 0 (0-99); PLATELET COUNT 537 10^3/uL (150-400); RED BLOOD CELL COUNT 3.28 10^6/uL (4.40-6.38); RED CELL DISTRIBUTION WIDTH 14.2 % (11.5-15.2)
[2016-12-13 06:28] LABS: INR 2.04 (0.83-1.16); PROTIME(PATIENT) 23.2 SEC (12.0-15.0)
[2016-12-13 06:38] LABS: ANION GAP 10 mEq/L (8-16); CALCIUM 9.2 mg/dL (8.5-10.4); CARBON DIOXIDE 22 mEq/l (22-31); CHLORIDE 108 mEq/L (97-110); CREATININE 0.8 mg/dL (0.7-1.3); GLOMERULAR FILTRATION RATE > 60; GLUCOSE 96 mg/dL (70-100); SODIUM 140 mEq/L (134-144)
[2016-12-13] MEDS: MIDODRINE HCL 5 MG TAB PO SCH (08:45)
[2016-12-13] MEDS: PRASUGREL HCL 10 MG TAB PO SCH (08:45)
[2016-12-13] MEDS: FAMOTIDINE 20 MG TAB PO SCH ×2 (08:46→22:10)
[2016-12-13] MEDS: ATORVASTATIN CALCIUM 40 MG TAB PO SCH (08:46)
[2016-12-13] MEDS: ASPIRIN EC 81 MG TAB PO SCH (08:46)
[2016-12-13] MEDS: SENNOSIDES/DOCUSATE SODIUM TAB PO SCH ×2 (08:47→22:11)
[2016-12-13] MEDS: ERTAPENEM 1 GM in NS 100 ML IV SCH (08:48)
--- NOTE | 2016-12-13 09:36 | PDINTPN ---
Nursery Nurse Progress Note Assessment/Plan: Assessment: 31 M with hx polysubstance abuse admitted after cardiac arrest with cocaine and opiates on tox screen. Family also mentioned "spice" (synthetic THC). Course complicated by AMI requiring stent with revision and intermittent agitation. 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 # CAD/AMI- s/p stent with redo 2/2 stenosis; currently treated with ASA, Effient. Coreg d/c'd due to hypotension # Hypotension- Etiology is unclear. Evaluation negative, no signs of infection. Off pressors and his BP is up slightly, although still low, on Midodrine # Respiratory failure with hypoxia- Extubated. Continue pulmonary toilet. Remains on RA # Altered MS- may be related to wd from ingestion versus toxic encephalopathy 2/ 2 arrest and medications. Improving daily # Fever- Resolved- was associated with extubation/re-intubation periods early in hospital course. WBC down # DVT prophylaxis- heparin started Plan: 12/13/16 09:41 Subjective: Feels well, slept better last night. Walked without lightheadedness. Urinating without difficulty, appetite good. Objective: Vital Signs Temp Pulse Resp BP Pulse Ox 36.7 C 90 20 88/62 L 96 12/13/16 06:00 12/13/16 07:00 12/13/16 07:00 12/13/16 07:00 12/13/16 06:00 Laboratory Results 12/13/16 05:50 12/13/16 05:50 12/12/16 12/13/16 12/14/16 05:59 05:59 05:59 Intake Total 1161 1830 Output Total 590 Balance 1161 1240 PT 23.2 SEC (12.0-15.0) H 12/13/16 05:50 INR 2.04 (0.83-1.16) H 12/13/16 05:50 Physical Exam - Physical Exam General Appearance: alert, no apparent distress EENT: normal ENT inspection Neck: normal inspection Respiratory: chest non-tender, lungs clear Cardiac/Chest: regular rate, rhythm, edema Abdomen: normal bowel sounds, non-tender Skin: normal color, warm/dry Extremities: normal inspection Neuro/Psych: alert, normal mood/affect, oriented x 3 ICD10 Worksheet Patient Problems: Problems Problem Status Onset STEMI (ST elevation myocardial infarction) Acute Abscess of axilla Active Fever Active Obesity Active Renal failure syndrome Active
--- NOTE | 2016-12-13 09:46 | PDCARPN ---
Cardiology Progress Note Assessment/Plan: Assessment/plan: 31-year-old male with anterior ST-elevation GA on November 30. He did have a witnessed VF arrest and was resuscitated in the field. LAD occlusion was treated with PCI to the LAD. His course has been complicated by early stent thrombosis requiring repeat PCI on the . Balloon pump was placed at that time. Then had a 3rd angiogram on the with patent stents. His peak troponin was 319. Etiology of his GA is most likely cocaine. Urine toxicology was positive for cocaine, THC. Had persistent hypertension of unclear etiology And did require several days of Lazaro-Synephrine. This has been stopped as of 12/12. He is currently on midodrine. 1. Recent anterior ST-elevation GA with ischemic cardiomyopathy and stent thrombosis. Stop midodrine today. Start low-dose Coreg tonight if his blood pressure is stable. We will ultimately require SANKET-inhibitor. Also consider Inspra. Continue dual antiplatelet therapy for minimum of 1 year. He is currently on Coumadin for high risk of developing LV apical thrombus in the setting of anteroapical wall motion abnormality. He was counseled that he should never use cocaine again. 2. Hypotension: Overall improving. He does not appear clinically to be in cardiogenic shock. His CVP was between 0 and 5.. His white count is elevated , but down trending. he is afebrile and there has been no clear source of infection based on chest x-ray, urinalysis, blood culture. No overt clinical bleeding. He does not seem to have an endocrine etiology for his hypertension. Track urine output. 3.Polysubstance abuse: He will need support for this as an outpatient. I do not think that Zyban or nicotine replacement therapy is safe in the recent GA setting. Transfer to floor today. If he tolerates low-dose Coreg as blood pressure remains stable, consider discharge tomorrow. 12/13/16 09:44 Subjective: Raoul feels well. He slept well last night. No chest pain, dyspnea, presyncope. Reviewed/Discussed With: family, other (Dr. Funez) Objective: Vital Signs (8 Hrs) Temp Pulse Resp BP Pulse Ox 12/13/16 09:00 36.7 C 88 18 84/55 L 98 12/13/16 07:00 90 20 88/62 L 12/13/16 06:00 36.7 C 90 24 H 80/49 L 96 12/13/16 05:00 74 24 H 74/42 L 12/13/16 04:00 80 25 H 70/39 L 12/13/16 03:00 76 12 73/38 L 12/13/16 02:00 88 24 H 79/47 L Intake/Output (24 Hrs) 12/12/16 12/13/16 12/14/16 05:59 05:59 05:59 Intake Total 1161 1830 Output Total 590 Balance 1161 1240 Intake: Oral (ml) 220 800 IV Intake (ml) 580 440 IV Infused (ml) 361 590 Albumin 5% 500 ml @ As 500 Directed IV ONCE ONE Rx#: [id number] Phenylephrine HCl 50 mg 361 90 In D5w 250 ml @ Per Protocol IV CONT URIEL Rx#: [id number] Output: Urine (ml) 590 Toilet 430 Urinal 160 Other: Weight 76.2 kg 65.6 kg Output Comment Toilet not observed not observed Number of Voids Toilet 1 1 Number of Stools Toilet 1 No acute distress. JVP less than 10 Regular rate and rhythm without murmur or gallop Lungs clear to auscultation bilaterally without wheezes rhonchi or rales Extremities warm well perfused without cyanosis clubbing or edema Result Diagrams: 12/13/16 05:50 12/13/16 05:50 Cardiac Labs: Cardiac Lab Results (72 Hrs) 12/12/16 16:20 Troponin I 0.220 H EKG: sinus rhythm. Evolving anterior GA. Telemetry: Sinus rhythm ICD10 Worksheet Patient Problems: Problems Problem Status Onset Renal failure syndrome Active Fever Active Obesity Active Abscess of axilla Active STEMI (ST elevation myocardial infarction) Acute
[2016-12-13 13:03] LABS: INTERPRETATION See Comments
[2016-12-13] MEDS: WARFARIN SODIUM 3 MG TAB PO SCH (15:06)
[2016-12-13] MEDS: CARVEDILOL 3.125 MG TAB PO SCH (18:14)
[2016-12-13] MEDS: ACETAMINOPHEN 325 MG TAB PO PRN (22:10)
[2016-12-13] MEDS: MELATONIN 3 MG TAB PO SCH (22:10)
[2016-12-13] MEDS: CALCIUM CARBONATE 500 MG CHEWABLE TAB PO PRN (22:10)
[2016-12-13] MEDS: TEMAZEPAM 15 MG CAP PO PRN (22:10)
[2016-12-14 05:02] LABS: % IMMATURE GRANULYOCYTES 0.9 % (0.0-1.1); ABSOLUTE IMMATURE GRANULOCYTES 0.11 10^3/uL (0.00-0.10); ADD DIFF? NO; ADD MORPH? NO; ADD SCAN? NO; ATYPICAL LYMPHOCYTE FLAG 30 (0-99); FRAGMENT RBC FLAG 0 (0-99); HEMATOCRIT 33.5 % (40.0-51.0); HEMOGLOBIN 11.1 g/dL (13.7-17.5); LEFT SHIFT FLG 0 (0-99); LIPEMIA HEMOLYSIS FLAG 80 (0-99); MEAN CELL HEMOGLOBIN 31.4 pg (27.9-34.1); MEAN CELL HEMOGLOBIN CONCENTR. 33.1 g/dL (32.4-36.7); MEAN CELL VOLUME 94.6 fL (81.5-99.8); MEAN PLATELET VOLUME 10.6 fL (8.7-11.7); PLATELET CLUMPS FLAG 0 (0-99); PLATELET COUNT 559 10^3/uL (150-400); RED BLOOD CELL COUNT 3.54 10^6/uL (4.40-6.38); RED CELL DISTRIBUTION WIDTH 14.1 % (11.5-15.2)
[2016-12-14 05:05] LABS: INR 1.93 (0.83-1.16); PROTIME(PATIENT) 22.2 SEC (12.0-15.0)
[2016-12-14 05:07] LABS: ANION GAP 11 mEq/L (8-16); CALCIUM 9.2 mg/dL (8.5-10.4); CARBON DIOXIDE 22 mEq/l (22-31); CHLORIDE 108 mEq/L (97-110); CREATININE 0.9 mg/dL (0.7-1.3); GLOMERULAR FILTRATION RATE > 60; GLUCOSE 86 mg/dL (70-100); MAGNESIUM 1.9 mg/dL (1.6-2.3); SODIUM 141 mEq/L (134-144)
[2016-12-14] MEDS: PRASUGREL HCL 10 MG TAB PO SCH (09:29)
[2016-12-14] MEDS: CARVEDILOL 3.125 MG TAB PO SCH ×2 (09:29→18:33)
[2016-12-14] MEDS: FAMOTIDINE 20 MG TAB PO SCH (09:30)
[2016-12-14] MEDS: SENNOSIDES/DOCUSATE SODIUM TAB PO SCH (09:30)
[2016-12-14] MEDS: ATORVASTATIN CALCIUM 40 MG TAB PO SCH (09:30)
[2016-12-14] MEDS: ASPIRIN EC 81 MG TAB PO SCH (09:30)
[2016-12-14] MEDS ORDERED: CANN-EASE 2 GM TUBE TP PRN (09:41)
[2016-12-14 12:11] VITALS: PULSE 103; RESP 20; TEMP 97.9; O2SAT 98
[2016-12-14 15:21] VITALS: BP 92/59
[2016-12-14] MEDS: WARFARIN SODIUM 3 MG TAB PO SCH (15:21)
[2016-12-14] MEDS ORDERED: LISINOPRIL 2.5 MG TAB PO SCH (15:30)
--- NOTE | 2016-12-14 16:22 | GDS ---
ADMISSION DIAGNOSES: 1. Acute anterior ST-elevation myocardial infarction. 2. Polysubstance abuse. 3. Tobacco abuse. DISCHARGE DIAGNOSES: 1. Status post acute ST-segment anterior myocardial infarction, treated with drug-eluting stent maicol cement. 2. Acute stent thrombosis of the LAD requiring repeat stenting less than 24 hours later. 3. Ischemic cardiomyopathy. 4. Polysubstance abuse, including urine toxicology positive for cocaine. 5. Tobacco abuse. 6. Persistent hypotension, resolved. 7. Leukocytosis. PROCEDURES DURING HOSPITALIZATION: 1. Cardiac catheterization x2. Please see dictated reports by Dr. Childers and Dr. Acosta. In [facility], the patient received a single drug-eluting stent on 11/30/2016 to treat his LAD occlusion. Th en on 11/30/2016 at approximately 7 p.m., he required repeat angiogram for in-stent thrombosis. Thi s was treated with thrombectomy, balloon dilation, and an additional Synergy drug-eluting stent insi de the previously placed stent and extended distally. An additional Synergy drug-eluting stent was placed in the proximal portion of the LAD due to residual concern over residual thrombus. 2. Echocardiogram at the time of admission showed an ejection fraction of 35% with septal and apica l hypokinesis. 3. Echocardiogram, 12/01/2016: Ejection fraction 35% with similar regional wall motion abnormaliti es. 4. Echocardiogram, 12/11/2016: Ejection fraction 35% with septum, anterior, and apical hypokinesis . Mild to moderate mitral regurgitation. Moderate tricuspid regurgitation. Estimated pulmonary pr essure is 49. Small ASD seen. HOSPITAL COURSE: The patient is a 31-year-old male with a history of polysubstance abuse. He was a dmitted to the ER with anterior ST-elevation IA and underwent coronary angiogram as detailed above. His hospital course was complicated by intraaortic balloon pump support and was slow to wean off th is. He was intubated for a couple of days. He required approximately 7 days of Lazaro-Synephrine, whi ch seemed to be the pressor that supported his blood pressure the best. There was no obvious infect ious source or overt bleeding, and he did not appear to be in cardiogenic shock. He was weaned off Lazaro-Synephrine and midodrine. On 12/13, he started low-dose carvedilol, which he tolerated. On 03/01, low-dose lisinopril was initiated. He was maintained on dual antiplatelet the rapy with aspirin and prasugrel, and warfarin was initiated due to his high risk of left ventricular apical thrombus formation. On the day of discharge, he was ambulating in the halls with no chest discomfort, no dyspnea, and no lightheadedness. He has not had any significant ventricular arrhythmia on telemetry. DISCHARGE PHYSICAL EXAM: VITAL SIGNS: Blood pressure 100/68, heart rate 89-103, oxygen saturation 98% on room air. He is afebrile. GENERAL: Well-appearing young male in no acute distress. CARDIO VASCULAR: JVP less than 10. Regular rate and rhythm without murmur, rub, or gallop. LUNGS: Clear to auscultation bilaterally without wheeze, rhonchi, or rales. EXTREMITIES: Warm and perfused wit hout cyanosis, clubbing, or edema. DISCHARGE LABORATORIES: White count 12, which is down trending; hematocrit 33.5, which is up trendi ng; and platelets are 559. INR 1.93. Sodium 140, potassium 4, chloride 108, BUN 9, creatinine 0.8, glucose 96. Peak troponin 319. TSH low normal at 0.824. He did have genetic testing for Plavix a nd with an extensive ultrarapid metabolizer. LDL cholesterol 103 on admission prior to statin thera py. DISCHARGE INSTRUCTIONS: 1. After the patient is fitted with his LifeVest, he will be discharged to the care of his brother- in-law. 2. Plans are in progress for the patient to enroll in inpatient substance abuse rehab program. He will have close cardiology followup. I have recommended a cardiology appointment in 1 week. 3. He will need a basic metabolic panel in 1 week, as we just started lisinopril. 4. He will need an INR in 2-3 days, with a goal INR of 2-3. He should enroll in a local anticoagul ation clinic. 5. He should enroll in cardiac rehab in [place]. Greater than 30 minutes were spent in discussion with the family, the patient, and case management. Currently in stable condition. /[id number]/MODL
== END 2016-12-14 19:31 | disposition home or self-care (01) | DRG 270 ==
LOC: EDUNIT# → EEVIPCON 01:15 → F2N 02:36 → F2W 12-13 16:59
PROVIDERS: ADMIT Internal Medicine Interventional Cardiology; ATTEND Internal Medicine Cardiovascular Disease
PROC: 027035Z Dilation of Coronary Artery, One Artery with Two Drug-eluting Intraluminal Devices, Percutaneous Approach (ICD-10-PCS; principal; 2016-11-30)
PROC: B2151ZZ Fluoroscopy of Left Heart using Low Osmolar Contrast (ICD-10-PCS; principal; 2016-11-30)
PROC: B240ZZ3 Ultrasonography of Single Coronary Artery, Intravascular (ICD-10-PCS; principal; 2016-11-30)
PROC: 4A023N7 Measurement of Cardiac Sampling and Pressure, Left Heart, Percutaneous Approach (ICD-10-PCS; principal; 2016-11-30)
PROC: B2111ZZ Fluoroscopy of Multiple Coronary Arteries using Low Osmolar Contrast (ICD-10-PCS; principal; 2016-11-30)
PROC: 5A02210 Assistance with Cardiac Output using Balloon Pump, Continuous (ICD-10-PCS; principal; 2016-11-30)
PROC: B2111ZZ Fluoroscopy of Multiple Coronary Arteries using Low Osmolar Contrast (ICD-10-PCS; 2016-11-30)
PROC: B2151ZZ Fluoroscopy of Left Heart using Low Osmolar Contrast (ICD-10-PCS; 2016-11-30)
PROC: 4A023N7 Measurement of Cardiac Sampling and Pressure, Left Heart, Percutaneous Approach (ICD-10-PCS; 2016-11-30)
PROC: 027034Z Dilation of Coronary Artery, One Artery with Drug-eluting Intraluminal Device, Percutaneous Approach (ICD-10-PCS; 2016-11-30)
PROC: 0BH17EZ Insertion of Endotracheal Airway into Trachea, Via Natural or Artificial Opening (ICD-10-PCS; 2016-11-30)
PROC: 5A1945Z Respiratory Ventilation, 24-96 Consecutive Hours (ICD-10-PCS; 2016-11-30)
PROC: 02HV33Z Insertion of Infusion Device into Superior Vena Cava, Percutaneous Approach (ICD-10-PCS; 2016-12-02)
PROC: 4A023N8 Measurement of Cardiac Sampling and Pressure, Bilateral, Percutaneous Approach (ICD-10-PCS; 2016-12-04)
PROC: B2151ZZ Fluoroscopy of Left Heart using Low Osmolar Contrast (ICD-10-PCS; 2016-12-04)
PROC: B2111ZZ Fluoroscopy of Multiple Coronary Arteries using Low Osmolar Contrast (ICD-10-PCS; 2016-12-04)
DX: I21.09 ST elevation (STEMI) myocardial infarction involving other coronary artery of anterior wall (principal); I49.01 Ventricular fibrillation; T82.218A Other mechanical complication of coronary artery bypass graft, initial encounter; I25.10 Atherosclerotic heart disease of native coronary artery without angina pectoris; J96.90 Respiratory failure, unspecified, unspecified whether with hypoxia or hypercapnia; I50.9 Heart failure, unspecified; I25.5 Ischemic cardiomyopathy; F14.90 Cocaine use, unspecified, uncomplicated; F17.210 Nicotine dependence, cigarettes, uncomplicated
CPT/HCPCS: 80305; 80307; 81225-90; 81332-90; 81479-90; 82947-QW; 85520-90; 92507-GN; 92523-GN; 96365; 97116-GP; 97162-GP; 97165-GO; 97530-GO; 97535-GO; C1725; C1751; C1753; C1757; C1760; C1769; C1874; C1887; C9600; C9606; G0480; J0330; J0583; J0610; J0834; J1250; J1265; J1327; J1335; J1644; J2250; J2370; J2405; J2704; J2997; J3010; J3475; P9041; P9047; Q9967

== ENCOUNTER 2017-01-14 14:40 | Observation (INO) | payer MEDICAID ==
--- NOTE | 2017-01-14 14:55 | CPEKG ---
Heart Rate: 100 RR Interval: 600 P-R Interval: 136 QRSD Interval: 80 QT Interval: 352 QTC Interval: 454 P [place]: 72 QRS [place]: 131 T Wave [place]: 86 EKG Severity - ABNORMAL ECG - EKG Impression: SINUS TACHYCARDIA EKG Impression: LATERAL INFARCT, OLD EKG Impression: CONSIDER ANTEROSEPTAL INFARCT Electronically Signed By: Octavio Perez 14-Jan-2017 16:12:11
[2017-01-14] MEDS ORDERED: NITROGLYCERIN 0.4 MG BTL SL PRN ×2 (15:06→16:17)
--- NOTE | 2017-01-14 15:09 | EDPHY ---
H & P Time Seen by Provider: 01/14/17 14:57 HPI/ROS: CHIEF COMPLAINT: Bilateral arm numbness and some central chest discomfort HISTORY OF PRESENT ILLNESS: Patient had complicated hospital stay in November of this year when he arrived on the and was taken to the labor and delivery nurse after cardiac arrest. He had a anterior ST elevation SD with stent placement and then InStent restenosis later that day. Patient tells me that 8:30 a.m. he had bilateral arm numbness right greater than left just like his previous SD with a little bit of central discomfort in his chest but nothing like "fire coming out of my chest" that he had back in November. Not associated with neck pain or shortness of breath. No coughing or hemoptysis. No weakness or numbness in the arms. REVIEW OF SYSTEMS: Eye: no change in vision ENT: no sore throat Cardiac: HPI Pulmonary: no cough or SOB Abdomen: no vomiting, diarrhea, abdominal pain Musculoskeletal: no back pain Skin: no rash Neuro: no headache Constitutional: no fever : no urinary symptoms A comprehensive 10 point review of systems is otherwise negative aside from elements mentioned in the history of present illness. PAST MEDICAL HISTORY: Coronary disease, with stenting 11/30/2016. Spontaneous pneumothorax. At 40% ejection fraction on echocardiogram in [facility] 3 weeks ago. Currently on warfarin. Social history: Tobacco smoker General Appearance: Alert and conversant, cooperative. Eyes: No scleral icterus. ENT, Mouth: Normal mucous membranes. Respiratory: Normal respiratory effort, breath sounds equal, lungs are clear to auscultation. Cardiovascular: Regular rate and rhythm. Gastrointestinal: Abdomen is soft and non tender. Neurological: Alert and oriented x3. Normally conversant. Face symmetric, normal movement and sensation in all extremities. Skin: Warm and dry, no rashes. Musculoskeletal: No peripheral edema and no joint swelling. Psychiatric: Not agitated. Emergency Department course/MDM: EKG reviewed shows anterior ST elevation with reciprocal inferior changes. Compared to previous but unclear if this is a new change with his arm symptoms. Cardiology consultation for ST elevation with inferior changes reciprocal on EKG. Concern for recurrent myocardial infarction. No aspirin because of current Effient and warfarin. Smoking Status: Current every day smoker Constitutional: Initial Vital Signs Temperature (C) 36.7 C 01/14/17 14:44 Heart Rate 102 H 01/14/17 14:44 Respiratory Rate 18 01/14/17 14:44 Blood Pressure 123/79 H 01/14/17 14:44 O2 Sat (%) 98 01/14/17 14:44 O2 Delivery Mode Room Air Allergies/Adverse Reactions: No Known Allergies Allergy (Verified 01/14/17 14:43) Home Medications: Medication Instructions Recorded Carvedilol [Coreg (*)] 3.125 mg PO BIDMEAL #120 tab 12/14/16 Famotidine [Pepcid 20 MG (*)] 20 mg PO BID #90 tab 12/14/16 Prasugrel HCl [Effient 10mg (*)] 10 mg PO DAILY #90 tab 12/14/16 Warfarin Sodium [Coumadin 3MG (*)] 3 mg PO DAILY16 #30 tab 12/14/16 Atorvastatin Calcium [Lipitor 40 40 mg PO HS 01/14/17 mg (*)] Lisinopril [Zestril 5 mg (*)] 2.5 mg PO HS 01/14/17 Medical Decision Making - Diagnostics EKG Interpretation: 12-lead EKG interpreted by me; official reading is in trace master. My interpretation is sinus rhythm with anterior ST elevation and inferior ST depression. Differential Diagnosis: Differential for arm numbness considered including but not limited to acute coronary syndrome, myocardial infarction, cervical radiculopathy, anxiety disorder Consult/Admit Bed Type: [place] [id number] in ED at 1528 - Data Points Laboratory Results: Laboratory Results 01/14/17 15:00 01/14/17 15:00 01/14/17 01/14/17 01/14/17 15:00 15:00 15:00 WBC 12.61 10^3/uL H 10^3/uL (3.80-9.50) RBC 4.95 10^6/uL 10^6/uL (4.40-6.38) Hgb 15.6 g/dL g/dL (13.7-17.5) Hct 46.0 % % (40.0-51.0) MCV 92.9 fL fL (81.5-99.8) MCH 31.5 pg pg (27.9-34.1) MCHC 33.9 g/dL g/dL (32.4-36.7) RDW 13.6 % % (11.5-15.2) Plt Count 354 10^3/uL 10^3/uL (150-400) MPV 10.0 fL fL (8.7-11.7) Neut % (Auto) 68.4 % % (39.3-74.2) Lymph % (Auto) 21.7 % % (15.0-45.0) Burt % (Auto) 6.8 % % (4.5-13.0) Eos % (Auto) 2.2 % % (0.6-7.6) Baso % (Auto) 0.6 % % (0.3-1.7) Nucleat RBC Rel Count 0.0 % % (0.0-0.2) Absolute Neuts (auto) 8.61 10^3/uL H 10^3/uL (1.70-6.50) Absolute Lymphs (auto) 2.74 10^3/uL 10^3/uL (1.00-3.00) Absolute Monos (auto) 0.86 10^3/uL H 10^3/uL (0.30-0.80) Absolute Eos (auto) 0.28 10^3/uL 10^3/uL (0.03-0.40) Absolute Basos (auto) 0.08 10^3/uL 10^3/uL (0.02-0.10) Absolute Nucleated RBC 0.00 10^3/uL 10^3/uL (0-0.01) Immature Gran % 0.3 % % (0.0-1.1) Immature Gran # 0.04 10^3/uL 10^3/uL (0.00-0.10) PT 17.8 SEC H SEC (12.0-15.0) INR 1.47 H (0.83-1.16) APTT 29.2 SEC SEC (23.0-38.0) Sodium 138 mEq/L mEq/L (134-144) Potassium 3.9 mEq/L mEq/L (3.5-5.2) Chloride 105 mEq/L mEq/L (97-110) Carbon Dioxide 20 mEq/l L mEq/l (22-31) Anion Gap 13 mEq/L mEq/L (8-16) BUN 9 mg/dL mg/dL (7-23) Creatinine 0.8 mg/dL mg/dL (0.7-1.3) Estimated GFR > 60 Glucose 96 mg/dL mg/dL (70-100) Calcium 9.7 mg/dL mg/dL (8.5-10.4) Troponin I 0.027 ng/mL ng/mL (0-0.034) Departure - Departure Disposition: To OP Cath/Surgery Clinical Impression: STEMI (ST elevation myocardial infarction) Qualifiers: Involved coronary artery: unspecified coronary artery Qualified Code(s): I21.3 - ST elevation (STEMI) myocardial infarction of unspecified site Condition: Good
[2017-01-14 15:11] LABS: % IMMATURE GRANULYOCYTES 0.3 % (0.0-1.1); ABSOLUTE IMMATURE GRANULOCYTES 0.04 10^3/uL (0.00-0.10); ADD DIFF? NO; ADD MORPH? NO; ADD SCAN? NO; ATYPICAL LYMPHOCYTE FLAG 10 (0-99); FRAGMENT RBC FLAG 0 (0-99); HEMOGLOBIN 15.6 g/dL (13.7-17.5); LEFT SHIFT FLG 0 (0-99); LIPEMIA HEMOLYSIS FLAG 90 (0-99); MEAN CELL HEMOGLOBIN 31.5 pg (27.9-34.1); MEAN CELL HEMOGLOBIN CONCENTR. 33.9 g/dL (32.4-36.7); MEAN CELL VOLUME 92.9 fL (81.5-99.8); PLATELET CLUMPS FLAG 0 (0-99); PLATELET COUNT 354 10^3/uL (150-400); RED BLOOD CELL COUNT 4.95 10^6/uL (4.40-6.38); RED CELL DISTRIBUTION WIDTH 13.6 % (11.5-15.2)
[2017-01-14 15:31] LABS: ANION GAP 13 mEq/L (8-16); CALCIUM 9.7 mg/dL (8.5-10.4); CARBON DIOXIDE 20 mEq/l (22-31); CHLORIDE 105 mEq/L (97-110); CREATININE 0.8 mg/dL (0.7-1.3); GLOMERULAR FILTRATION RATE > 60; GLUCOSE 96 mg/dL (70-100); POTASSIUM 3.9 mEq/L (3.5-5.2); SODIUM 138 mEq/L (134-144)
[2017-01-14] MEDS ORDERED: fentaNYL 100 MCG/2 ML INJ ONE (15:31)
[2017-01-14] MEDS ORDERED: LIDOCAINE 1% 30 ML SDV ONE (15:31)
[2017-01-14] MEDS ORDERED: MIDAZOLAM 2 MG/2 ML VIAL ONE (15:31)
[2017-01-14] MEDS ORDERED: IOPAMIDOL (ISOVUE 370) 100 ML BTL IV ONE (15:32)
[2017-01-14 15:37] LABS: INR 1.47 (0.83-1.16); PROTIME(PATIENT) 17.8 SEC (12.0-15.0)
[2017-01-14 15:38] LABS: APTT 29.2 SEC (23.0-38.0)
[2017-01-14 15:42] LABS: TROPONIN I 0.027 ng/mL (0-0.034)
[2017-01-14 15:49] VITALS: RESP 16
[2017-01-14] MEDS ORDERED: VERAPAMIL 5 MG/2 ML VIAL ONE (15:49)
[2017-01-14] MEDS ORDERED: HEPARIN 10,000 UNIT/10 ML MDV ONE (15:49)
[2017-01-14] MEDS ORDERED: ONDANSETRON 4 MG/2 ML VIAL IVP PRN (16:17)
[2017-01-14] MEDS ORDERED: ATROPINE SULFATE 1 MG/10 ML SYR IVP PRN (16:17)
--- NOTE | 2017-01-14 17:01 | GHP ---
[f rep st] HISTORY AND PHYSICAL DATE OF ADMISSION: 01/14/2017 HISTORY OF PRESENT ILLNESS: The patient is a 31-year-old male. I am asked to come to the emergency room emergently for IQ-[id number]-[id number] myocardial infarction. He has known coronary artery disea se. He had an anterior wall myocardial infarction in later November. This was complicated by shock . He was treated at that time with PCI and stenting of the LAD. He had an intraaortic balloon pump in place. He did recover quite well and had been discharged home. He was in [place] last week . An echocardiogram there showed ejection fraction of 40%. He returned to [place] today. He had some bad news this morning. He started developing the acute onset of right numbness and left arm discomfort associated with mild chest discomfort. He became anxious, dizzy, lightheaded, and c kathleen to the emergency room for further evaluation. His EKG on arrival shows ST elevation in the ante rior precordial leads, with ST depression reciprocally. Cardiac Alert was activated. On my arrival , he is having 1/10 to 2/10 numbness and tingling of the right arm, associated with dizziness. He d enies PND and orthopnea. He has had no syncope or near syncope. OUTPATIENT MEDICATIONS: Include: Warfarin. He is on Effient 10 mg a day, which he has been compli ant with. He is on melatonin. He is on 2.5 mg a day of lisinopril. He is on Coreg 3.125 b.i.d. H e is on 40 mg of atorvastatin. He is on 81 mg of aspirin. PAST SURGICAL HISTORY: Includes PCI and stenting in late November. ALLERGIES: He has no known drug allergies. PHYSICAL EXAMINATION: VITAL SIGNS: On my arrival, blood pressure is 122/87, his heart rate is 90, respiratory rate is 16, his oxygen saturation is 96%. GENERAL: This is an anxious male, sitting at 30 degrees. HEENT: Significant for no xanthelasma, he has no conjunctival injection, his orophary nx is clear. NECK: Reveals no JVP. CHEST: Clear to auscultation and percussion. Palpation of th e anterior chest wall reveals no lift. He has a regular rate and rhythm, without gallop. ABDOMEN: Soft, nontender, with good bowel sounds. EXTREMITIES: His prior puncture site has healed well, wi thout residual ecchymosis or erythema. Distal pulses are +2. Radial pulses are 2+, with blood gas scars seen in the left wrist. NEUROLOGICAL: He is alert and oriented, with normal mood and affect, appropriately anxious. Sensation grossly intact. SKIN: Free of rashes, with a rare ecchymosis of the upper extremities. LABORATORY DATA: White count is 12.61, which is elevated. Hemoglobin is 15.6 with a crit of 46. H is platelet count is 354. His serum is 138 with a potassium of 3.9. His chloride is 105 with a bicarbonate of 20. BUN is 9 w ith a creatinine of 0.8. His troponin is elevated at 0.27. His INR is 1.47. EKG dated January 14 at 1453 reveals sinus tachycardia at a rate of 100. ST elevation is seen in V1, V2, V3, V4, with ST depression in lead III and aVF. IMPRESSION: The patient is a 31-year-old male with known history of premature/early coronary diseas e, status post PCI and stenting, complicated by shock in late November, now with recurrent discomfor t, somewhat atypical in presentation, with an abnormal EKG and elevation of troponin. PLAN: In light of the patient's age, it was elected to proceed with direct coronary angiography for risk stratification. The risks and benefits of this were discussed. We will proceed from the [facility] t wrist. Questions were answered. /[id number]/MODL
--- NOTE | 2017-01-14 17:11 | CPIP ---
[f rep st] INVASIVE CARDIAC PROCEDURE DATE OF PROCEDURE: 01/14/[address]ICATIONS: ST segment elevation myocardial infarction. PROCEDURE: Left heart catheterization with coronary and ventricular angiography done from the right radial artery. TECHNICAL DIFFICULTIES: None. COMPLICATIONS: None. DESCRIPTION OF PROCEDURE: For details of the procedure, please see attached computer report. Right wrist was sterilely prepped and draped with 2% Xylocaine. A 5-[place] sheath was inserted without complication. The patient was administered intra- arterial verapamil. He was heparinized. Using a 5-[place] SiteSeer catheter, right and left coronaries were selectively intubated. Coronary angiography was performed using the 6-[place] pigtail catheter. The aortic valve was crossed. Left ventricular angiography was performed. The catheters were withdrawn. The sheath was removed with a TR band. FINDINGS: 1. Left main coronary artery is long and obstructed. 2. Left anterior descending artery is highly stented proximally. There is LEXII grade 3 flow to the apex without residual stenosis. Circumflex artery gives rise to an obtuse marginal branch and is free of significant disease. There is a ramus intermedius which is free of significant disease. 3. The right coronary artery is the dominant vessel giving rise to posterior descending and posterolateral branch. Limited irregularities are noted without focal stenosis. 4. Left ventricular angiography revealed an ejection fraction of 50% with mild apical hypokinesis. Left ventricular end-diastolic pressure is 11 mmHg. CONCLUSIONS: 1. Widely patent site of prior stenting without new focal stenosis. 2. Borderline LV systolic function, markedly improved with resolving anterior wall myocardial infarction. 3. Chest pain syndrome atypical. Query anxiety related. The patient will be treated conservatively with ongoing medical therapy and clinical followup. /[id number]/MODL MTDD
[2017-01-14] MEDS ORDERED: CARVEDILOL 3.125 MG TAB PO SCH (18:00)
[2017-01-14 20:14] VITALS: BP 111/72; PULSE 108; TEMP 98.5; O2SAT 94
[2017-01-14] MEDS ORDERED: MELATONIN 3 MG TAB PO SCH (21:00)
[2017-01-14] MEDS ORDERED: FAMOTIDINE 20 MG TAB PO SCH (21:00)
[2017-01-15] MEDS ORDERED: PRASUGREL HCL 10 MG TAB PO SCH (09:00)
[2017-01-15] MEDS ORDERED: LISINOPRIL 5 MG TAB PO SCH (09:00)
[2017-01-15] MEDS ORDERED: ATORVASTATIN CALCIUM 40 MG TAB PO SCH (09:00)
[2017-01-15] MEDS ORDERED: ASPIRIN EC 81 MG TAB PO SCH (09:00)
== END 2017-01-14 20:44 | disposition home or self-care (01) ==
LOC: EEVIPCON 14:40 → INTOOBSV 16:01 → F2N 16:01 → F2W 16:17
PROVIDERS: ADMIT Internal Medicine Interventional Cardiology; ATTEND Internal Medicine Interventional Cardiology
PROC: B2151ZZ Fluoroscopy of Left Heart using Low Osmolar Contrast (ICD-10-PCS; principal; 2017-01-14)
PROC: B2111ZZ Fluoroscopy of Multiple Coronary Arteries using Low Osmolar Contrast (ICD-10-PCS; principal; 2017-01-14)
PROC: 4A023N7 Measurement of Cardiac Sampling and Pressure, Left Heart, Percutaneous Approach (ICD-10-PCS; principal; 2017-01-14)
DX: I21.09 ST elevation (STEMI) myocardial infarction involving other coronary artery of anterior wall (principal); F41.9 Anxiety disorder, unspecified; I25.10 Atherosclerotic heart disease of native coronary artery without angina pectoris; I25.2 Old myocardial infarction; Z95.5 Presence of coronary angioplasty implant and graft; F17.210 Nicotine dependence, cigarettes, uncomplicated; Z79.01 Long term (current) use of anticoagulants
CPT/HCPCS: 71010; 93005; 93458; C1769; J1200; J1644; J2250; J3010; Q9967

== ENCOUNTER 2017-03-05 21:09 | Emergency (ER) | payer MEDICAID ==
[2017-03-05 21:21] VITALS: RESP 16; TEMP 98.1
[2017-03-05] MEDS ORDERED: NITROGLYCERIN 0.4 MG BTL SL ONE ×2 (21:22→21:32)
[2017-03-05] MEDS ORDERED: ASPIRIN 81 MG CHEWABLE TAB ONE (21:23)
--- NOTE | 2017-03-05 21:23 | CPEKG ---
Heart Rate: 109 RR Interval: 550 P-R Interval: 140 QRSD Interval: 76 QT Interval: 316 QTC Interval: 426 P Han[place]: 66 QRS [place]: 95 T Wave [place]: 84 EKG Severity - ABNORMAL ECG - EKG Impression: SINUS TACHYCARDIA EKG Impression: LATERAL INFARCT, OLD EKG Impression: CONSIDER ANTEROSEPTAL INFARCT EKG Impression: unchanged from previous Electronically Signed By: Eliezer Prieto 05-Mar-2017 21:52:35
[2017-03-05] MEDS ORDERED: ASPIRIN 81 MG CHEWABLE TAB PO ONE (21:32)
[2017-03-05] MEDS ORDERED: NS 500 ML IV ONE (21:46)
--- NOTE | 2017-03-05 21:50 | EDPHY ---
H & P Stated Complaint: chest pressure Time Seen by Provider: 03/05/17 21:31 HPI/ROS: CHIEF COMPLAINT: Chest pain HISTORY OF PRESENT ILLNESS: the patient is a 31-year-old man who comes to the emergency department with his complaining of chest pain radiating to his right arm. He has a history of coronary artery disease. He was seen here in November after a VFib arrest resuscitated in the ambulance with 1 cardioversion. He had a STEMI that required a single stent to the LAD. While in the hospital he had a Re stenosis requiring thrombectomy and restenting of the LAD. he was positive for cocaine. He was then seen again January 14 complaining of chest pain. He had ST elevation on his EKG and cardiac alert was called. Dr. Gamoba took him to the cytology laboratory manager and found widely patent prior stents and no new lesions. He was diagnosed with atypical chest pain and anxiety. He comes back today stating that he has had intermittent chest pain for the last 48 hours but that it has become constant for the last 2 hours. He states that resolved with aspirin he received at triage. REVIEW OF SYSTEMS: Constitutional: denies: chills, fever, recent illness, recent injury EENTM: denies: blurred vision, double vision, nose congestion Respiratory: denies: cough, shortness of breath Cardiac: See HPI Gastrointestinal/Abdominal: denies: abdominal pain, diarrhea, nausea, vomiting, blood streaked stools Genitourinary: denies: dysuria, frequency, hematuria, pain Musculoskeletal: denies: joint pain, muscle pain Skin: denies: lesions, rash, jaundice, bruising Neurological: denies: headache, numbness, paresthesia, tingling, dizziness, weakness Hematologic/Lymphatic: denies: blood clots, easy bleeding, easy bruising Immunologic/allergic: denies: HIV/AIDS, transplant EXAM: GENERAL: Well-appearing, well-nourished and in no acute distress. HEAD: Atraumatic, normocephalic. EYES: Pupils equal round and reactive to light, extraocular movements intact, sclera anicteric, conjunctiva are normal. ENT: TMs normal, nares patent, oropharynx clear without exudates. Moist mucous membranes. NECK: Normal range of motion, supple without lymphadenopathy or JVD. LUNGS: Breath sounds clear to auscultation bilaterally and equal. No wheezes rales or rhonchi. HEART: Regular rate and rhythm without murmurs, rubs or gallops. ABDOMEN: Soft, nontender, normoactive bowel sounds. No guarding, no rebound. No masses appreciated. BACK: No CVA tenderness, no spinal tenderness, step-offs or deformities EXTREMITIES: Normal range of motion, no pitting or edema. No clubbing or cyanosis. NEUROLOGICAL: Cranial nerves II through XII grossly intact. Normal speech, normal gait. 5/5 strength, normal movement in all extremities, normal sensation PSYCH: Normal mood, normal affect. SKIN: Warm, dry, normal turgor, no visible rashes or lesions. Source: Patient Exam Limitations: No limitations - Personal History Current Tetanus/Diphtheria Vaccine: Yes Tetanus Vaccine Date: 11/06/2007 - Medical/Surgical History Hx Asthma: No Hx Chronic Respiratory Disease: No Hx Diabetes: No Hx Cardiac Disease: Yes Hx Renal Disease: No Hx Cirrhosis: No Hx Alcoholism: No Hx HIV/AIDS: No Hx Splenectomy or Spleen Trauma: No Other PMH: Sepsis 2011. [place] 11/2106. cardiac stents - Family History Significant Family History: No pertinent family hx - Social History Smoking Status: Current every day smoker Alcohol Use: Sober Drug Use: None Constitutional: Initial Vital Signs Temperature (C) 36.7 C 03/05/17 21:18 Heart Rate 104 H 03/05/17 21:18 Respiratory Rate 16 03/05/17 21:18 Blood Pressure 120/73 03/05/17 21:18 O2 Sat (%) 99 03/05/17 21:18 O2 Delivery Mode Room Air Allergies/Adverse Reactions: No Known Allergies Allergy (Verified 01/14/17 14:43) Home Medications: Medication Instructions Recorded Carvedilol [Coreg (*)] 3.125 mg PO BIDMEAL #120 tab 12/14/16 Famotidine [Pepcid 20 MG (*)] 20 mg PO BID #90 tab 12/14/16 Prasugrel HCl [Effient 10mg (*)] 10 mg PO DAILY #90 tab 12/14/16 Warfarin Sodium [Coumadin 3MG (*)] 3 mg PO DAILY16 #30 tab 12/14/16 Atorvastatin Calcium [Lipitor 40 40 mg PO HS 01/14/17 mg (*)] Lisinopril [Zestril 5 mg (*)] 2.5 mg PO HS 01/14/17 Medical Decision Making - Diagnostics EKG Interpretation: An EKG obtained and was read and documented in trace view. Please see trace view for full reading and report. Sinus rhythm, ST elevations anteriorly and mild depression in lead 2 only, unchanged from previous EKGs Imaging: Discussed imaging studies w/ packing house supervisor Radiologist ED Course/Re-evaluation: the patient's EKG is reassuring comparing to his previous EKGs and particularly compared to the December 04 EKG which showed significant ST elevation much greater than today and in most recent EKGs. Patient's pain is gone. He actually was asking to leave the emergency department. After discussion he agree to stay for lab work and chest x-ray . 10:20 p.m. patient remains asymptomatic. He is eager to go home. He is relieved with his test results. He does request a GI cocktail. Differential Diagnosis: Partial list of the Differential diagnosis considered include but were not limited to; Acute coronary disease, peptic ulcer disease, anxiety, substance abuse and although unlikely based on the history and physical exam, I also considered PE, pneumothorax. - Data Points Laboratory Results: Laboratory Results 03/05/17 21:30 03/05/17 21:30 Medications Given: Discontinued Medications Al Hydroxide/Mg Hydroxide (Maalox Susp) 30 ml PO ONCE ONE Stop: 03/05/17 22:28 Last Admin: 03/05/17 22:43 Dose: 30 ml Aspirin (Aspirin) 324 mg PO EDNOW ONE Stop: 03/05/17 21:33 Last Admin: 03/05/17 21:45 Dose: 324 mg Hyoscyamine Sulfate (Levsin, Hyomax-Sl) 0.25 mg PO ONCE ONE Stop: 03/05/17 22:28 Last Admin: 03/05/17 22:39 Dose: 0.25 mg Sodium Chloride (Ns) 500 mls @ 0 mls/hr IV ONCE ONE PRN Reason: As Directed Stop: 03/05/17 21:47 Last Admin: 03/05/17 22:00 Dose: 500 mls Lidocaine (Lidocaine 2% Viscous) 15 ml PO ONCE ONE Stop: 03/05/17 22:28 Last Admin: 03/05/17 22:39 Dose: 15 ml Nitroglycerin (Nitrostat) 0.4 mg SL EDNOW ONE Stop: 03/05/17 21:33 Last Admin: 03/05/17 22:40 Dose: Not Given Departure - Departure Disposition: Home, Routine, Self-Care Clinical Impression: Chest pain Qualifiers: Chest pain type: unspecified Qualified Code(s): R07.9 - Chest pain, unspecified GERD (gastroesophageal reflux disease) Qualifiers: Esophagitis presence: esophagitis presence not specified Qualified Code(s): K21.9 - Gastro-esophageal reflux disease without esophagitis Condition: Fair Instructions: Chest Pain (ED), Gastroesophageal Reflux Disease (ED) Referrals: Jaleesa Macias MD [Primary Care Provider] - As per Instructions
[2017-03-05 21:59] LABS: % IMMATURE GRANULYOCYTES 0.3 % (0.0-1.1); ABSOLUTE IMMATURE GRANULOCYTES 0.04 10^3/uL (0.00-0.10); ADD DIFF? NO; ADD MORPH? NO; ADD SCAN? NO; ATYPICAL LYMPHOCYTE FLAG 30 (0-99); FRAGMENT RBC FLAG 0 (0-99); HEMATOCRIT 51.2 % (40.0-51.0); HEMOGLOBIN 17.5 g/dL (13.7-17.5); LEFT SHIFT FLG 0 (0-99); LIPEMIA HEMOLYSIS FLAG 90 (0-99); MEAN CELL HEMOGLOBIN 30.9 pg (27.9-34.1); MEAN CELL HEMOGLOBIN CONCENTR. 34.2 g/dL (32.4-36.7); MEAN CELL VOLUME 90.5 fL (81.5-99.8); MEAN PLATELET VOLUME 10.9 fL (8.7-11.7); PLATELET CLUMPS FLAG 0 (0-99); PLATELET COUNT 306 10^3/uL (150-400); RED BLOOD CELL COUNT 5.66 10^6/uL (4.40-6.38); RED CELL DISTRIBUTION WIDTH 13.2 % (11.5-15.2)
[2017-03-05 22:05] LABS: ANION GAP 11 mEq/L (8-16); CARBON DIOXIDE 26 mEq/l (22-31); CHLORIDE 105 mEq/L (97-110); GLOMERULAR FILTRATION RATE > 60; GLUCOSE 59 mg/dL (70-100); SODIUM 142 mEq/L (134-144)
[2017-03-05 22:17] LABS: TROPONIN I 0.029 ng/mL (0-0.034)
[2017-03-05] MEDS ORDERED: MAG HYDROX/AL HYDROX/SIMETH 30 ML UDCUP PO ONE (22:27)
[2017-03-05] MEDS ORDERED: HYOSCYAMINE SULFATE 0.125 MG TAB PO ONE (22:27)
[2017-03-05] MEDS ORDERED: LIDOCAINE 2% VISCOUS 15 ML UDCUP PO ONE (22:27)
[2017-03-05 23:26] VITALS: BP 96/65; PULSE 69; O2SAT 98
== END 2017-03-05 23:26 | disposition home or self-care (01) ==
DX: K21.9 Gastro-esophageal reflux disease without esophagitis (principal); I25.10 Atherosclerotic heart disease of native coronary artery without angina pectoris; F17.200 Nicotine dependence, unspecified, uncomplicated; I25.2 Old myocardial infarction; Z79.01 Long term (current) use of anticoagulants; Z95.5 Presence of coronary angioplasty implant and graft